=== PATIENT | male | born 1965 | race Caucasian/White ===

== ENCOUNTER 2018-01-25 16:25 | Inpatient (IN) | payer OTHER ==
[~2018-01-25] VITALS: Ht 182.9 cm; Wt 101.3 kg
--- NOTE | 2018-01-25 16:25 | NUR ---
PATIENT BIBA TO BED 10 AT THIS TIME, RT AT BEDSIDE.
[2018-01-25 16:30] VITALS: BP 100/71
--- NOTE | 2018-01-25 16:35 | NUR ---
Note undone in EDM - 01/25/18 at 1831 by VICKI PT. BIB V[place] AMBULANCE [place] [facility] [place] ABNORMAL LABS HGB: 6.8. PT. ARRIVES WITH EYES OPEN GCS: 9. L BKA. UNDERWOOD CATH IN PLACE FROM FACILITY. PT. WARM AND DRY TO TOUCH. RR EVEN AND UNLABORED. TRACH IN PLACE AND ON VENTILATOR, SETTING O2: 3L , AC: 18, TV: 650, PEEP: 5. FACILITY DENIED ANY BLACK TARRY STOOLS OR BLACK EMESIS NOTED. R TOE AMPUTATION NOTED. OPEN WOUNDS TO SACRUM STAGE 4 PER FACILITY. ER MD NOTIFIED. SAFETY PRECAUTIONS IMPLEMENTED. WILL CONTINUE TO MONITOR.
--- NOTE | 2018-01-25 16:35 | NUR ---
PT. [place] [facility] [place] HGB: 6.8. PT. ARRIVES WITH EYES OPEN GCS: 9. L BKA. UNDERWOOD CATH IN PLACE FROM FACILITY. PT. WARM AND DRY TO TOUCH. RR EVEN AND UNLABORED. TRACH IN PLACE AND BEING BAGGED UPON ARRIVAL, SETTING O2: 3L , AC: 18, TV: 650, PEEP: 5. FACILITY DENIED ANY BLACK TARRY STOOLS OR BLACK EMESIS NOTED. R TOE AMPUTATION NOTED. OPEN WOUNDS TO SACRUM STAGE 4 PER FACILITY. L LOWER ARM PITTING 3+ EDEMA NOTED, SCROTAL EDEMA NOTED. ER MD NOTIFIED. SAFETY PRECAUTIONS IMPLEMENTED. WILL CONTINUE TO MONITOR.
[2018-01-25 16:40] VITALS: BP 100/71
--- NOTE | 2018-01-25 16:48 | NUR ---
RCV'D PT ON MECHANICAL VENTILATION. PT IS ON THE SAME SETTINGS WHAT HE IS ON AT HIS FACILITY. PT IS TRACHED WITH PORTEX 8. NO SOB OR DISTRESS NOTED. VENT IS CONNECTED TO RED OUTLET. ALARMS AUDIBLE. WILL CONTINUE TO MONITOR,
[2018-01-25] MEDS ORDERED: PANT40EC GT (17:03)
[2018-01-25] MEDS ORDERED: VALP-22 GT (17:03)
[2018-01-25] MEDS ORDERED: FERR75LI22 GT (17:03)
[2018-01-25] MEDS ORDERED: AMLO5TAB GT (17:03)
[2018-01-25] MEDS ORDERED: CLON0.2T16 GT (17:03)
[2018-01-25] MEDS ORDERED: ROC.25 GT (17:03)
[2018-01-25] MEDS ORDERED: ATOR40TA GT (17:03)
[2018-01-25] MEDS ORDERED: NOVR IM (17:03)
[2018-01-25] MEDS ORDERED: DIAZ5TAB7 GT (17:03)
[2018-01-25] MEDS ORDERED: FLUC200T GT (17:03)
[2018-01-25] MEDS ORDERED: LEVE1000 GT (17:03)
--- NOTE | 2018-01-25 17:40 | NUR ---
PT. RESTING IN BED, RR EVEN AND UNLABORED. VSS. HOB ELEVATED. L ARM ELEVATED. WILL CONTINUE TO MONITOR.
[2018-01-25 17:45] LABS: BASOPHILS % (AUTO) 0.2 % (0.0-2.0); EOSINOPHILS # (AUTO) 0.1 K/uL (0-0.4); EOSINOPHILS % (AUTO) 1.5 % (0.0-4.0); HEMATOCRIT 23.6 % (36-52); HEMOGLOBIN 7.5 g/dL (12.0-18.0); LYMPHOCYTES # (AUTO) 1.1 K/uL (2.0-11.5); LYMPHOCYTES % (AUTO) 12.4 % (20.5-51.1); MEAN CORPUSCULAR HEMOGLOBIN 31 pg (27-31); MEAN CORPUSCULAR HGB CONC 32 g/dL (33-37); MEAN CORPUSCULAR VOLUME 97.7 fL (80-94); MONOCYTES # (AUTO) 0.4 K/uL (0.8-1.0); MONOCYTES % (AUTO) 4.3 % (1.7-9.3); NEUTROPHILS # (AUTO) 7.4 K/uL (1.8-7.7); NEUTROPHILS % (AUTO) 81.6 % (42.2-75.2); PLATELET COUNT (AUTO) 140 K/uL (140-450); RED BLOOD CELL COUNT(AUTO) 2.41 MIL/uL (4.20-6.10); RED CELL DISTRIBUTION WIDTH 19.4 % (11.6-13.7); WHITE BLOOD COUNT (AUTO) 9.1 K/uL (4.8-10.8)
[2018-01-25 17:53] LABS: ANION GAP 7.9 (8-16); CARBON DIOXIDE 28.1 mmol/L (21-32); CREATININE 0.8 mg/dL (0.7-1.3)
--- NOTE | 2018-01-25 17:55 | NUR ---
TRIED TO GET SPUTUM SAMPLE BUT PT IS DRY. NO SOB OR DISTRESS NOTED.
[2018-01-25 17:56] LABS: PROTHROMBIN TIME 10.8 secs (10.8-13.4)
--- NOTE | 2018-01-25 18:33 | NUR ---
PT. RESTING COMFORTABLY IN BED, RR EVEN AND UNLABORED. WILL CONTINUE TO MONITOR. VSS
--- NOTE | 2018-01-25 18:41 | NUR ---
PATIENT RECEIVED IN ER ROOM 10 DESCRIBED. TRACHEOSTOMY, PORTEX 8. ON VENT, AC, VT 650, RATE 18, PEEP 5, 40%, FLOW 40. PATIENT IS AWAKE. TRACH IS PATENT AND SECURED. ULCER NOTED AT STOMA AND IS RED WITH DISCHARGE BUT NO ACTIVE BLEEDING NOTED. AMBU BAG AT BEDSIDE. ALARMS WERE TIGHTENED AND ARE ON AND AUDIBLE. VENT PLUGGED INTO RED OUTLET. VITALS AE 100%, PULSE 91, RATE 18, CLEAR BREATH SOUNDS. NO TREATMENTS ORDERED AT THIS TIME.
[2018-01-25] MEDS ORDERED: ALBUTEROL 0.083% 2.5 MG/3 ML NEBU INH PRN (18:45)
[2018-01-25] MEDS ORDERED: HYDROcodone/APAP 5/325 MG 1 TAB TAB PO PRN (18:45)
[2018-01-25] MEDS ORDERED: ONDANSETRON 4 MG/2 ML VIAL IVP PRN (18:45)
[2018-01-25] MEDS ORDERED: MORPHINE SULFATE 2 MG/ML SYR IVP PRN (18:45)
[2018-01-25] MEDS ORDERED: NACL 0.9% 1,000 ML IV SCH ×2 (18:48→19:29)
[2018-01-25] MEDS ORDERED: POTASSIUM CHLORIDE 20% 40 MEQ/15 ML UDC GT ONE ×2 (18:50→19:30)
--- NOTE | 2018-01-25 19:17 | NUR ---
Pt report given to CONSTANZA PITTS . Transfer of care at this time.
--- NOTE | 2018-01-25 19:45 | NUR ---
CALLED TO TRANSPORT AT 1935. PREPARED PATIENT FOR TRANSPORT AND TRANSPORTED WITH 2 ER NURSES (CLAUDE AND HONG) WITH NO INCIDENT. PATIENT RESTORED TO VENT AND PLUGGED INTO RED OUTLET. PLUGGED INTO CONTINUOUS PULSE OXIMETER INTO RED OUTLET. CIRCUIT AND STOMA PATENT. VITALS AT 100%, PULSE 96, BREATH SOUNDS CLEAR.
--- NOTE | 2018-01-25 19:53 | NUR ---
Pt transferred to ICU via BED with CONSTANZA Warren .
[2018-01-25 20:00] VITALS: BP 85/55
--- NOTE | 2018-01-25 20:00 | NUR ---
REPORT GIVEN AND CARE TRANSFERED TO DANIELLE RN ROOM 123B. TRANSFERED VIA RNEY WITH VSS. RT PRESENT DURING TRANSPORT.
--- NOTE | 2018-01-25 20:00 | NUR ---
ADMITTED THIS 52 YEAR OLD MALE PER GURNEY FROM ER WITH CC OF LOW HEMOGLOBIN, TRANSFERRED TO WOUND BED, ON TRACH TO VENT, VITAL SIGNS TAKEN, BP-85/55, HR-85, SAT-100% ON 40% FI02, PT APHASIC BUT OPEN EYES WITH TRACKING, IVF OF NS 1L WIDE OPEN FROM ER INFUSING WELL VIA RT UA PICC LINE SINGLE LUMEN, DRESSING DRY AND INTACT, HX OF LEFT BKA AND RT TOES AMPUTATION, G-TUBE CLAMPED AT THIS TIME, MAINTAINED ON NPO ORDERED, UNDERWOOD CATHETER TO GRAVITY WITH STRAW COLORED URINE SMALL AMOUNT, PT BEDBOUND, WILL REPOSITIONED Q2H AND OFFLOAD PRESSURE AREAS, SAFETY MEASURES IN PLACE, SIDE RAILS UP AND BED ALARM ON.
[2018-01-25] MEDS: DEXT 5% / NACL 0.45% 1,000 ML IV SCH (21:12)
[2018-01-25] MEDS: ACETAMINOPHEN 325 MG TAB PO PRN (21:13)
[2018-01-25] MEDS: ALBUTEROL 0.083% 2.5 MG/3 ML NEBU INH SCH (21:59)
[2018-01-25] MEDS: IPRATROPIUM 0.02% 0.5 MG/2.5 ML NEBU INH SCH (21:59)
[2018-01-25 22:00] VITALS: BP 97/70
--- NOTE | 2018-01-25 22:00 | NUR ---
PATIENT WEANED DOWN TO 35. WATCHED PATIENT FOR 10 MINUTES AND SATURATIONS DID NOT DROP BELOW 100%. WILL REASSESS.
[2018-01-25] MEDS ORDERED: DEXTROSE 50% 50 ML SYR IVP PRN (22:35)
--- NOTE | 2018-01-25 22:40 | NUR ---
PT WITH OCCASIONAL TREMORS NOTED, PT OPEN EYES TO TOUCH, PAGED DR GOYAL, DR GOYAL MADE AWARE OF TREMORS AND LOW BLOOD PRESSURE, WITH ORDER FOR ALBUMIN X1 AND TO CONTINUE SEIZURE MEDS, BLOOD TRANSFUSION 1ST UNIT PRBC ON-GOING AT THIS TIME, MONITORED CLOSELY.
[2018-01-25] MEDS ORDERED: ALBUMIN HUMAN 25% 100 ML IV SCH (23:00)
--- NOTE | 2018-01-25 23:07 | NUR ---
PATIENT STILL SATING 100%. FIO2 DROPPED FROM 35% TO 28%. AFTER 10 MINUTES, PATIENT'S O2 SATURATIONS STILL HAVENT DROPPED BELOW 100%- PULSE REMAINED UNCHANGED WELL RATE.. WILL CONTINUE TO MONITOR.
--- NOTE | 2018-01-25 23:30 | NUR ---
PT SEEN SHAKING OF UPPER BODY, ARMS AND HEAD WITH EYES CLOSED, OPEN EYES TO TOUCH AND SHAKING STOPPED, VITAL SIGNS STABLE, 1ST UNIT PRBC ON-GOING, MAINTAINED ON NPO, REPOSITIONED AND OFFLOAD PRESSURE AREAS, PT ON WOUND BED, CONTINUE TO MONITOR CLOSELY.
[2018-01-26] VITALS: BP 111/70
[2018-01-26] MEDS: IPRATROPIUM 0.02% 0.5 MG/2.5 ML NEBU INH SCH ×3 (01:09→13:38)
[2018-01-26] MEDS: ALBUTEROL 0.083% 2.5 MG/3 ML NEBU INH SCH ×3 (01:10→13:38)
--- NOTE | 2018-01-26 01:10 | NUR ---
RECEIVED ON A [employer] CARESCAPE R860 VENTILATOR PLUGGED INTO RED OUTLET TOLERATING WELL WITHOUT ADVERSE REACTIONS NOTED TO A PORTEX DCT #8 AIRWAY SECURED WITH A TRACH TIE CUFF PRESSURE CHECKED NOTED AMBU BAG NOTED AT HEAD OF BED VÍCTOR RADICAL-7 CONTINUOS PULSE OXIMETER AT BEDSIDE ON AND FUNCTIONING WELL LOW SATURATION ALARM SET AT 92% NO PULMONARY DISTRESS NOTED BREATH SOUNDS RHONCHI BILATERAL WITH GOOD CHEST RISE DEEP TRACHEAL SUCTION FOR LARGE THICK YELLOW SECRETIONS AIRWAY PATENT
--- NOTE | 2018-01-26 01:35 | NUR ---
1ST UNIT PRBC DONE WITH NO REACTION NOTED, VITAL SIGNS STABLE, 2ND UNIT PRBC STARTED, MONITORED FOR REACTIONS, OCCASIONAL SHAKING NOTED, NO CONTRACTIONS AND RIGIDITY NOTED, PT OPENS EYES TO TOUCH, CONTINUE ON SEIZURE PRECAUTION, MONITORED CLOSELY.
--- NOTE | 2018-01-26 03:20 | NUR ---
2ND UNIT PRBC DONE, VITAL SIGNS STABLE, NO REACTION NOTED, RESUMED IVF OF D5 1/2 NS AT 100ML/H, MONITORED CLOSELY.
--- NOTE | 2018-01-26 03:25 | NUR ---
STABLE NO DISTRESS NOTED GOOD CHEST RISE DEEP TRACHEAL SUCTION FOR MODERATE THICK YELLOW SECRETIONS AIRWAY PATENT
[2018-01-26 04:00] VITALS: BP 107/73
[2018-01-26] MEDS: DIAZEPAM 5 MG TAB GT SCH ×2 (04:05→13:04)
[2018-01-26] MEDS: levETIRAcetam 500 MG TAB GT SCH ×2 (04:05→13:04)
[2018-01-26] MEDS: VALPROIC ACID 250 MG/5 ML UDC GT SCH ×2 (04:05→13:10)
--- NOTE | 2018-01-26 04:10 | NUR ---
10 ML G-TUBE RESIDUAL NOTED, DUE SEIZURE MEDS ADMINISTERED VIA G-TUBE, ORAL CARE DONE USING VAP KIT, TOLERATED WELL, SUCTION SECRETION ORALLY WITH ANDREI, MONITORED CLOSELY.
[2018-01-26] MEDS: DEXT 5% / NACL 0.45% 1,000 ML IV SCH ×2 (04:43→14:43)
--- NOTE | 2018-01-26 05:00 | NUR ---
PT WITH LARGE LOOSE BM GREENISH BROWN STOOL, PERINEAL CARE DONE.
--- NOTE | 2018-01-26 05:24 | NUR ---
RESTING WELL NO NOTED GOOD CHEST RISE DEEP TRACHEAL SUCTION FOR MODERATE THIN YELLOW SECRETIONS AIRWAY PATENT
[2018-01-26] MEDS: MIDODRINE 5 MG TAB GT SCH ×2 (06:24→13:04)
[2018-01-26] MEDS ORDERED: PANTOPRAZOLE 40 MG INJ VIAL IVP SCH (06:30)
[2018-01-26] MEDS: BLOOD GLUCOSE MONITORING 1 DEV DEV FS SCH ×2 (06:33→11:30)
[2018-01-26] MEDS: INSULIN LISPRO SLIDING SCALE 100 UNITS/ML VIAL SUBQ PRN ×2 (06:33→13:06)
--- NOTE | 2018-01-26 06:35 | NUR ---
BLOOD SUGAR CHECKED WITH 180 RESULT, RECHECKED BP-119/76, HR-85, PT SLEEPING, NO SEIZURE EPISODE NOTED AT THIS TIME, DR GOYAL HERE, MADE AWARE OF 200ML URINE OUTPUT THE WHOLE SHIFT AND EDEMA TO LEFT ARM, STATED "THAT'S FINE AND TO ELEVATE LEFT ARM WITH PILLOW", CARRIED OUT, PT MONITORED CLOSELY.
[2018-01-26 07:05] VITALS: BP 128/81
--- NOTE | 2018-01-26 07:15 | NUR ---
RCV'D PT ON MECHANICAL VENTILATION WITH CHARTED SETTINGS. PT IS TRACHED WITH PORTEX 8. TRACH IS IN PLACE AND SECURED. BREATH SOUNDS RHONCHI BILATERALLY. SPO2 100%. VENT IS CONNECTED TO RED OUTLET. ALARMS AUDIBLE. AMBU BAG AT BEDSIDE. HHN TX GIVEN WITH NO ADVERSE REACTION. PT IS ASLEEP COMFORTABLY. NO SOB OR DISTRESS NOTED. CONTINUOUS PULSEOX IS AT BEDSIDE. WILL CONTINUE TO MONITOR.
--- NOTE | 2018-01-26 07:23 | NUR ---
PT AWAKE, NO SIGNS OF DISTRESS, REPORT GIVEN TO CONSTANZA TRAN FOR CONTINUITY OF CARE.
--- NOTE | 2018-01-26 07:30 | NUR ---
RECEIVED REPORT FROM GEOPHYSICAL LABORATORY CHIEF NURSE, PT IS AAOX1 RESTING IN BED, SEMI FOWLERS POSITION PT IS ON A TRACH TO VENT, PICC LINE ON RIGHT UPPER ARM, PATENT, INTACT, FLUSHING WELL, PT HAS MULTIPLE PRESSURE ULCERS ON HIS BUTTOCKS AND SACRAL AREA, PT HAS LEFT BKA, RT TOES AMPUTATED, UNDERWOOD CATHETER IS IN PLACE, CURRENTLY RECEIVING A BREATHING TREATMENT, RT IS AT BEDSIDE, NO S/S OF RESPIRATORY DISTRESS OR DISCOMFORT NOTED, DISCUSSED PLAN OF CARE WITH PT, PT UNABLE TO VERBALIZE UNDERSTANDING, SAFETY/FALL PRECAUTIONS ARE IN PLACE, CALL LIGHT IS WITHIN REACH WILL CONTINUE TO MONITOR.
[2018-01-26 08:00] VITALS: BP 107/69
--- NOTE | 2018-01-26 08:00 | NUR ---
DECREASED PT'S FIO2 TO 24 % WILL CONTINUE TO MONITOR.
--- NOTE | 2018-01-26 08:37 | NUR ---
PATIENT HAS BEEN SCREENED AND CATEGORIZED HIGH NUTRITION RISK. PATIENT WILL BE SEEN WITHIN 1-2 DAYS OF ADMISSION. 01/26/18 01/27/[address]
[2018-01-26 08:56] LABS: BASOPHILS # (AUTO) 0.1 K/uL (0.00-0.22); BASOPHILS % (AUTO) 0.7 % (0.0-2.0); EOSINOPHILS # (AUTO) 0.1 K/uL (0-0.4); EOSINOPHILS % (AUTO) 0.7 % (0.0-4.0); HEMATOCRIT 27.8 % (36-52); HEMOGLOBIN 9.1 g/dL (12.0-18.0); LYMPHOCYTES # (AUTO) 1.4 K/uL (2.0-11.5); LYMPHOCYTES % (AUTO) 18.3 % (20.5-51.1); MEAN CORPUSCULAR HEMOGLOBIN 31 pg (27-31); MEAN CORPUSCULAR HGB CONC 33 g/dL (33-37); MEAN CORPUSCULAR VOLUME 94.9 fL (80-94); MONOCYTES # (AUTO) 0.4 K/uL (0.8-1.0); MONOCYTES % (AUTO) 4.8 % (1.7-9.3); NEUTROPHILS # (AUTO) 5.8 K/uL (1.8-7.7); NEUTROPHILS % (AUTO) 75.5 % (42.2-75.2); PLATELET COUNT (AUTO) 103 K/uL (140-450); RED BLOOD CELL COUNT(AUTO) 2.93 MIL/uL (4.20-6.10); RED CELL DISTRIBUTION WIDTH 17.2 % (11.6-13.7); WHITE BLOOD COUNT (AUTO) 7.7 K/uL (4.8-10.8)
[2018-01-26] MEDS ORDERED: FLUCONAZOLE 100 MG TAB GT SCH (09:00)
[2018-01-26] MEDS ORDERED: CALCITRIOL 0.25 MCG CAPLF PO SCH (09:00)
[2018-01-26] MEDS ORDERED: ATORVASTATIN 20 MG TAB GT SCH (09:00)
--- NOTE | 2018-01-26 09:04 | NUR ---
DUE MEDICATION GIVEN. PT TOLERATED WELL, CALL LIGHT IS WITHIN REACH, WILL CONTINUE TO MONITOR.
--- NOTE | 2018-01-26 09:16 | NUR ---
VENT CHECK. NO SOB OR DISTRESS NOTED. PT IS QUITE. WILL CONTINUE TO MONITOR.
[2018-01-26 09:20] LABS: ALBUMIN 1.7 g/dL (3.4-5.0); ANION GAP 8.9 (8-16); CARBON DIOXIDE 27.3 mmol/L (21-32); CREATININE 0.9 mg/dL (0.7-1.3); POTASSIUM 3.2 mmol/L (3.5-5.1); TOTAL BILIRUBIN 0.4 mg/dL (0.0-1.0)
--- NOTE | 2018-01-26 09:34 | NUR ---
CM NOTE ADMISSION CHART REVIEW DONE. INITIAL REVIEW FAXED TO [facility] [phone] MEDARDO # [phone]
--- NOTE | 2018-01-26 11:05 | NUR ---
VENT CHECK DONE. NO SXN NEEDED. PT IS QUITE AND COMFORTABLE. NO SOB OR DISTRESS NOTED. WILL CONTINUE TO MONITOR.
--- NOTE | 2018-01-26 11:40 | NUR ---
PT RESTING IN BED, PT WAS TURNED FOR COMFORT, NO S/S OF DISTRESS OR DISCOMFORT NOTED, CALL LIGHT WITHIN REACH.
[2018-01-26 12:00] VITALS: BP 135/66
--- NOTE | 2018-01-26 12:18 | NUR ---
Distribution Tech Note: Per Sun from [facility] , patient is on a 7 day bed hold and his brother Derrick Elliott is patient's healthcare decision maker. I informed Sun patient's POLST is incomplete, physician's section is not filled out, not signed by physician. Sun stated she will inform their psychosocial rehabilitation counselor dept of this.
--- NOTE | 2018-01-26 12:29 | NUR ---
Digester Operator Note: I faxed patient's history of present illness report, list of labs, and list of medication to [facility].
--- NOTE | 2018-01-26 13:06 | NUR ---
CM NOTE PER [facility] CM MEDARDO PH# [phone], GOING BACK TO [facility] FOR [facility]SPORT[facility] AUTH# [id number] Addendum: 01/26/18 at 1415 by Torri Mcnulty CM PER IE CM MEDARDO, [place] [facility] [place]# [id number]
--- NOTE | 2018-01-26 13:20 | NUR ---
MEDS WERE GIVEN PER ORDER. PRIMARY NURSE MARC WAS INFORMED
--- NOTE | 2018-01-26 13:35 | NUR ---
Director Of Housing Note: Per Santos from [facility] , patient may go to room 23A after 3pm today at their facility, accepting physician is .
[2018-01-26 13:38] VITALS: BP 135/66
--- NOTE | 2018-01-26 14:14 | NUR ---
CALLED JAIME AND SPOKE WITH CHERELLE AND SET UP RT TRANSPORT FOR PT TO RET[place] [facility] [place] [place] ROOM 23A AND SCHEDULED CHECKING CLERK TIME IS 1530 AND PROVIDED [facility] AUTH#[id number]. [facility] [phone].
--- NOTE | 2018-01-26 14:30 | NUR ---
PT HAD A BOWEL MOVEMENT BROWN/GREEN IN COLOR, MODERATE AMOUNT, PT CLEANED AND TURNED FOR COMFORT. ALL NEEDS ARE MET AT THIS TIME.
--- NOTE | 2018-01-26 14:33 | NUR ---
PATIENT CURRENT TEMP 101.2. WILL MEDICATE WITH ORDERED TYLENOL AND INITIATE COOLING MEASURES.
[2018-01-26] MEDS: ACETAMINOPHEN 325 MG TAB PO PRN (14:38)
--- NOTE | 2018-01-26 15:06 | NUR ---
CALLED [facility] [place] [phone] AND GAVE REPORT TO MARTINE.
--- NOTE | 2018-01-26 15:15 | NUR ---
RECHECKED PT TEMPERATURE, DECREASED TO 99.8.
--- NOTE | 2018-01-26 16:00 | NUR ---
PT PICKED UP BY [facility], UNDERWOOD CATHETER REMOVED. PT LEFT IN STABLE CONDITION. PICC LINE IN RIGHT UPPER ARM LEFT IN PLACE SINCE PT WAS ADMITTED WITH PICC LINE.
--- NOTE | 2018-01-27 09:52 | NUR ---
WOUND CARE CONSULT NOT DONE. PT. DISCHARGED.
== END 2018-01-26 16:00 | DRG 663 ==
LOC: MED 16:25 → MTU 18:50
PROVIDERS: ADMIT Hospitalist; ATTEND Hospitalist
PROC: 5A1935Z Respiratory Ventilation, Less than 24 Consecutive Hours (ICD-10-PCS; 2018-01-25)
PROC: 30233N1 Transfusion of Nonautologous Red Blood Cells into Peripheral Vein, Percutaneous Approach (ICD-10-PCS; principal; 2018-01-26)
DX: D64.9 Anemia, unspecified (principal); G93.41 Metabolic encephalopathy; Z99.11 Dependence on respirator [ventilator] status; J96.10 Chronic respiratory failure, unspecified whether with hypoxia or hypercapnia; R53.2 Functional quadriplegia; Z93.0 Tracheostomy status; I10 Essential (primary) hypertension; R13.10 Dysphagia, unspecified; E11.9 Type 2 diabetes mellitus without complications; Z86.73 Personal history of transient ischemic attack (TIA), and cerebral infarction without residual deficits; Z87.11 Personal history of peptic ulcer disease; Z93.1 Gastrostomy status; Z89.512 Acquired absence of left leg below knee; Z89.421 Acquired absence of other right toe(s)
CPT/HCPCS: 36415; 51702; 80048; 80053; 82948; 83540; 85025; 85610; 85730; 86886; 86900; 86901; 86920; 87081; 94002; 94003; 94640; 99285; C9113; J1815; J7030; J7613; J7644; P9016; P9046

== ENCOUNTER 2018-02-02 09:29 | Inpatient (IN) | payer OTHER ==
[~2018-02-02] VITALS: Ht 175.3 cm; Wt 104.3 kg
[2018-02-02] VITALS (13 sets, daily range): BP systolic 86–115; BP diastolic 57–74
[~2018-02-02 09:29] MED LIST: ATOR40TA GT; CLON0.2T16 GT; DIAZ5TAB7 GT; FERR75LI22 GT; FLUC200T GT; LEVE1000 GT; NOVR IM; PANT40EC GT; ROC.25 GT; VALP-22 GT
--- NOTE | 2018-02-02 09:29 | NUR ---
PT BIBA ALS TO BED 10
--- NOTE | 2018-02-02 09:30 | NUR ---
ADMITTING DX: SOB RECEIVED FROM [facility] PATIENT ON AnergisSCAPE R860 VENTILATOR ID# [id number] WITH SETTINGS NOTED ON FLOWSHEET VENTILATOR PLUGGED INTO RED OUTLET TOLERATING WELL WITHOUT INCIDENT PORTEX DCT #8 AIRWAY CUFF PRESSURE CHECKED AMBU BAG AT HOB BREATH SONDS DIFFUSED RHONCHI BILATERAL WITH GOOD CHEST RISE DEEP TRACHEAL SUCTION FOR SPUTUM SAMPLE OF SMALL THICK YELLOW SECRETIONS AIRWAY PATENT
--- NOTE | 2018-02-02 09:32 | NUR ---
Patient being evaluated by physician at bedside.
[2018-02-02] MEDS ORDERED: NACL 0.9% 1,000 ML IV SCH (09:34)
[2018-02-02] MEDS ORDERED: PIPERACILLIN/TAZOBACTAM 3.375 GM in DEXT 5% MINI-BAG PLUS 50 ML IV ONE (09:35)
[2018-02-02] MEDS ORDERED: ACETAMINOPHEN 650 MG SUPP RC ONE (09:35)
--- NOTE | 2018-02-02 09:37 | NUR ---
PT. HAS RECTAL TEMP OF 102.2. ER MD NOTIFIED. ORDERS RECEIVED. COOLING MEASURES IMPLEMENTED
[2018-02-02] MEDS ORDERED: NACL 0.9% 500 ML IV ONE (09:40)
--- NOTE | 2018-02-02 09:40 | NUR ---
PATIENT BIB ALS FROM [facility] BEING BAGGED/TRACH. VENT. SETTINGS AC 18,TV 650,PEEP 5. FEVER LAST NIGHT NOT MEDICATED AT THE FACILITY PER LABEL PRESS OPERATOR. UNKNOWN TIME BEING SOB PER STAFF AND LABEL PRESS OPERATOR. PT HAS LT BKA, RT TOES AMPUTATION. G TUBE IN PLACE. R UPPER ARM PICC LINE IN PLACE. PT. HAS 102.2 RECTAL TEMP UPON ARRIVAL. WOUNDS TO SACRUM NOTED AND R LEG AND TRACH WOUND NON DRAINING. L ARM EDEMA NOTED 3+ PITTING. LABORED BREATHINGS NOTED. SKIN, HOT AND DRY TO TOUCH. TRACH PRESENT. COOLING MEASURES IMPLEMENTED. SAFETY PRECAUTIONS IMPLEMENTED. ER MD NOTIFIED AND AT BEDSIDE AT THIS TIME. LS: RHONCHI THROUGHOUT. RT AT BEDSIDE. WILL CONTINUE TO MONITOR.
--- NOTE | 2018-02-02 09:42 | NUR ---
RN'S AT BEDSIDE FOR PATIENT ASSESSMENT AND DIAGNOSTIC CLAIM EXAMINER TO ATTEMPT ABG AT A LATER TIME
[2018-02-02] MEDS ORDERED: PIPERACILLIN/TAZOBACTAM 3.375 GM VIAL IV ONE (09:45)
--- NOTE | 2018-02-02 10:01 | NUR ---
LAB AT BEDSIDE AT THIS TIME.
[2018-02-02 10:23] LABS: APPEARANCE,URINE HAZY (CLEAR); BILIRUBIN,URINE NEGATIVE (NEGATIVE); BLOOD, URINE 3+ (NEGATIVE); COLOR,URINE YELLOW (YELLOW); LEUKOCYTE ESTERASE ,URINE 2+ (NEGATIVE); NITRITE, URINE NEGATIVE (NEGATIVE); PH,URINE 5.5 (5.0-9.0); UGLUCOSE NEGATIVE (NEGATIVE)
[2018-02-02 10:25] LABS: BASOPHILS % (AUTO) 0.4 % (0.0-2.0); EOSINOPHILS # (AUTO) 0.1 K/uL (0-0.4); EOSINOPHILS % (AUTO) 2.1 % (0.0-4.0); HEMATOCRIT 21.8 % (36-52); HEMOGLOBIN 7.1 g/dL (12.0-18.0); LYMPHOCYTES # (AUTO) 0.6 K/uL (2.0-11.5); LYMPHOCYTES % (AUTO) 9.3 % (20.5-51.1); MEAN CORPUSCULAR HEMOGLOBIN 31 pg (27-31); MEAN CORPUSCULAR HGB CONC 32 g/dL (33-37); MEAN CORPUSCULAR VOLUME 96.1 fL (80-94); MONOCYTES # (AUTO) 0.4 K/uL (0.8-1.0); MONOCYTES % (AUTO) 6.1 % (1.7-9.3); NEUTROPHILS # (AUTO) 5.6 K/uL (1.8-7.7); NEUTROPHILS % (AUTO) 82.1 % (42.2-75.2); PLATELET COUNT (AUTO) 181 K/uL (140-450); RED BLOOD CELL COUNT(AUTO) 2.27 MIL/uL (4.20-6.10); RED CELL DISTRIBUTION WIDTH 16.8 % (11.6-13.7); WHITE BLOOD COUNT (AUTO) 6.8 K/uL (4.8-10.8)
[2018-02-02 10:33] LABS: ANION GAP 18.7 (8-16); CARBON DIOXIDE 14.2 mmol/L (21-32); CREATININE 1.1 mg/dL (0.7-1.3); POTASSIUM 4.9 mmol/L (3.5-5.1)
--- NOTE | 2018-02-02 10:35 | NUR ---
ABG SAMPLE REPORT REVIEWED BY DR CARMENZA DOWLING NEW ORDER TITRATE FIO2 KEEP SATURATION GREATER THAN 92%
[2018-02-02 10:36] LABS: RBC,URINE 20-50 /HPF (0-5); WBC,URINE 20-60 /HPF (0-5)
[2018-02-02 10:37] LABS: PROTHROMBIN TIME 11.4 secs (10.8-13.4)
[2018-02-02 10:37] LABS: YEAST,URINE Few /HPF (None Seen)
[2018-02-02 10:39] LABS: ALBUMIN 1.2 g/dL (3.4-5.0); TOTAL BILIRUBIN 0.1 mg/dL (0.0-1.0)
--- NOTE | 2018-02-02 10:45 | NUR ---
PT. IN BED. VSS. RR EVEN AND UNLABORED. REPOSITIONED FOR COMFORT. BED IN LOWEST POSITION. WILL CONTINUE TO MONITOR.
[2018-02-02] MEDS ORDERED: SLIDE SUBQ (11:07)
[2018-02-02] MEDS ORDERED: DOCU-299 GT (11:07)
[2018-02-02] MEDS ORDERED: AMLO5TAB GT (11:07)
[2018-02-02] MEDS ORDERED: ASCO500T45 GT (11:07)
[2018-02-02] MEDS ORDERED: ONDANSETRON 4 MG/2 ML VIAL IVP PRN (11:15)
[2018-02-02] MEDS ORDERED: DEXTROSE 50% 50 ML SYR IVP PRN (11:15)
[2018-02-02] MEDS ORDERED: ALBUTEROL 0.083% 2.5 MG/3 ML NEBU IH PRN (11:15)
--- NOTE | 2018-02-02 11:42 | NUR ---
vent check, pt resting with no signs of distress noted airway is patent
--- NOTE | 2018-02-02 12:15 | NUR ---
PT TRANSFERRED TO ICU 5 BAGGED WITH 100% O2 THEN PLACED BACK ON VENT WITH SAME SETTINGS
--- NOTE | 2018-02-02 12:19 | NUR ---
1215 PT TAKEN TO ICU BY RN SHEILA, EMT ANISH, AND RT
--- NOTE | 2018-02-02 12:20 | NUR ---
RECEIVED PT FROM ER VIA GURLACY, REPORT OBTAINED AT BEDSIDE, PT IS LETHARGIC, APHASIC, UNABLE TO FOLLOW COMMANDS AND MAKE NEEDS KNOWN, TRACH TO VENT WITH SETTING FIO2 100, TV 650, RR 18, PEEP 5, NO S/S OF DISTRESS, RHONCHI LUNG SOUNDS EMERSON. O2 SAT 100%. ST ON PIANO TECHNICIAN, SOFT ABDOMEN WITH ACTIVE BOWEL SOUNDS, GT IN PLACE, PATENT, NO RESIDUALS AT THIS TIME. INCONTINENT WITH B&B'S, DIARRHEA NOTED. GENERALIZED EDEMA NOTED, SEVERE WEAKNESS TO ALL EXTREMITIES, LEFT BKA NOTED, RIGHT TOES AMPUTATION NOTED, SKIN IS WARM, FEVER NOTED, COOLING MEASURE IN USE, OPEN WOUND PRESENT (SEE WOUND ASSESSMENT). MEDLINE TO RIGHT UPPER ARM, PATENT, RUNNING NS AT 100ML/HR. HOB ELEVATED TO 30 DEGREES, SEIZURE PRECAUTION AND FALL PRECAUTION IN PLACE, SAFETY MEASURE CHECKED, PLACED PT TO COMFORT POSITION, WILL CONTINUE TO MONITOR.
--- NOTE | 2018-02-02 12:25 | NUR ---
Patient will be admitted to care of DR. HART . Admited to ICU . Will go to room 5 . Belongings list completed. Report to CONSTANZA BIANCHI .
--- NOTE | 2018-02-02 12:25 | NUR ---
VENT CHECK, NO SXN NEEDED AIRWAY PATENT AND RN AT BEDSIDE
[2018-02-02] MEDS: BLOOD GLUCOSE MONITORING 1 DEV DEV FS SCH ×3 (12:40→20:10)
[2018-02-02] MEDS: VALPROIC ACID 250 MG/5 ML UDC GT SCH ×2 (12:40→20:10)
[2018-02-02] MEDS: levETIRAcetam 100 MG/ML ORASYR GT SCH ×2 (12:40→20:11)
[2018-02-02] MEDS: DIAZEPAM 5 MG TAB GT SCH ×2 (12:40→20:11)
[2018-02-02] MEDS: NACL 0.9% 1,000 ML IV SCH ×2 (12:41→23:00)
[2018-02-02] MEDS ORDERED: PIPERACILLIN/TAZOBACTAM 3.375 GM in DEXTROSE 5% 50 ML IV SCH (13:00)
--- NOTE | 2018-02-02 13:00 | NUR ---
UNDERWOOD CATHETER INSERTED ORDERED, WOUND CARE PROVIDED, WOUND CULTURE COLLECTED.
[2018-02-02] MEDS: ACETAMINOPHEN 650 MG/20.3 ML UDC GT PRN (13:06)
--- NOTE | 2018-02-02 13:06 | NUR ---
PT TEMP 101.3F, COOLING MEASURE IN USE, TYLENOL GIVEN.
[2018-02-02] MEDS: INSULIN LISPRO SLIDING SCALE 100 UNITS/ML VIAL SUBQ PRN ×3 (13:07→20:24)
--- NOTE | 2018-02-02 14:55 | NUR ---
DR. HART CAME IN TO SEE PT AT BEDSIDE, WILL FOLLOW UP WITH NEW ORDERS.
--- NOTE | 2018-02-02 14:56 | NUR ---
DR HART IN, UPDATED ON PATIENT'S CONDITION. WILL FOLLOW UP WITH ORDERS.
[2018-02-02] MEDS ORDERED: ALBUTEROL SULFATE/IPRATROPIU 3 ML SOL IH PRN (15:15)
--- NOTE | 2018-02-02 15:19 | NUR ---
vent check, sxn pt no return of secretions, b\s rhonchi trach care done: changed trach gauze with skin break down around stoma inner cannula changed dr. jason gave vent and breathing tx orders. decreased fio2 to 30%
--- NOTE | 2018-02-02 15:36 | NUR ---
GAVE RECOMMENDATIONS TO TASH APODACA FOR GLUCERNA 1.2 AT 75 ML/HR. THIS WILL PROVIDE PATIENT WITH 2160 KCAL, 108 GM OF PROTEIN, MEETING 100% OF ESTIMATED NEEDS FOR A PATIENT ON TRACH TO VENT.
--- NOTE | 2018-02-02 16:00 | NUR ---
PM CARE AND UNDERWOOD CATHETER CARE, PRERI CARE PROVIDED, ORAL CARE GIVEN, NO S/S OF DISTRESS, FLACC 0, POSITION CHANGED FOR OFF LOAD PRESSURE.
--- NOTE | 2018-02-02 16:28 | NUR ---
DR HART PAGED AND CALLED BACK. MADE AWARE OF PATIENT'S HAVING 3 EPISODES OF LOOSE BOWEL MOVEMENTS IN LARGE AMOUNT. WITH ORDERS OF TO INSERT RECTAL TUBE AND STOOL SAMPLE FOR C DIFF TO LAB. ORDERS TRANSCRIBED AND CARRIES OUT.
[2018-02-02] MEDS: SKINTEGRITY HYDROGEL TP PRN (16:37)
[2018-02-02] MEDS: Z-GUARD PASTE TP PRN (16:37)
--- NOTE | 2018-02-02 16:49 | NUR ---
DR. RAMIREZ CAME IN TO SEE PT AT BEDSIDE, WILL FOLLOW UP WITH NEW ORDERS.
[2018-02-02] MEDS: LEVOFLOXACIN 500 MG/D5W PREMIX 100 ML IV SCH (16:54)
--- NOTE | 2018-02-02 17:11 | NUR ---
vent check, sxn pt small amt of thick yellow secretions, changed hernández pt resting
--- NOTE | 2018-02-02 18:20 | NUR ---
ONE UNIT OF RBC STARTED ORDERED, WILL CLOSE MONITOR PT'S CONDITION.
--- NOTE | 2018-02-02 19:09 | NUR ---
REPORT GIVEN TO E M ASSEMBLER NURSE FOR CONTINUE OF CARE, PT IS IN STABLE CONDITION AT THIS TIME.
--- NOTE | 2018-02-02 19:11 | NUR ---
RECEIVED REPORT FROM AM SHIFT FOR CONTINUITY OF CARE. PT NONVERBAL. NONTRACKING. UNABLE TO FOLLOW COMMANDS. AFEBRILE. TRACH TO VENT AC MODE FIO2 30 VT 650 FLOW 65 PEEP 5. LUNG SOUNDS CLEAR BILAT. ST ON MONITOR. S1 + S2 SOUNDS PRESENT. EDEMA BUE NOTED. ABD SOFT NONTENDER. BOWEL SOUNDS ACTIVE X4 QUADRANTS. GT TO FEED. GT PATENT. GLUCERNA 1.2 75ML/HR H20 250 ML Q [address] STOOL LIQUID BROWN. BLADDER NONDISTENDED. F/C IN PLACE. URINE CLEAR, YELLOW. IV SITE YOCASTA MIDLINE NS @ 100 ML. PRESSURE INJURY TO SACRUM AND L LEG. AMPUTATION L LEG AND R DIGITS NOTED. INCONTINENT DERMATITIS TO SCROTAL AREA. BED IN LOWEST POSITION. CALL LIGHT WITHIN REACH. SIDE RAILS UP X 4. HOB 30. SEIZURE PRECAUTIONS IMPLEMENTED. ON CONTACT ISOLATION PRECAUTIONS TO R/O C. DIF AT THIS TIME. WILL CONTINUE TO MONITOR,
--- NOTE | 2018-02-02 19:45 | NUR ---
PT TURNED AND REPOSITIONED AT THIS TIME. ORAL CARE PERFORMED AT THIS TIME.
[2018-02-02] MEDS: PIPER/TAZO 3.375GM/D5W PREMIX 50 ML IV SCH (20:11)
[2018-02-02] MEDS: ALBUTEROL 0.083% 2.5 MG/3 ML NEBU IH SCH (20:26)
[2018-02-02] MEDS: IPRATROPIUM 0.02% 0.5 MG/2.5 ML NEBU IH SCH (20:26)
--- NOTE | 2018-02-02 20:36 | NUR ---
RT AT BEDSIDE AT THIS TIME
--- NOTE | 2018-02-02 21:33 | NUR ---
BLOOD TRANSFUSION COMPLETE AT THIS TIME. 1 UNIT PRBC INFUSED. NO ADVERSE REACTIONS NOTED.
--- NOTE | 2018-02-02 22:20 | NUR ---
RT AT BEDSIDE AT THIS TIME. PT TURNED AND REPOSITIONED TO OFF LOAD PRESSURE AREAS.
--- NOTE | 2018-02-02 23:00 | NUR ---
NS RATE CHANGED 100ML/HR TO 75 ML/HR PER MD ORDER.
[2018-02-03] VITALS (24 sets, daily range): BP systolic 78–123; BP diastolic 52–79
[2018-02-03] MEDS: Z-GUARD PASTE TP SCH ×2 (00:05→13:09)
[2018-02-03] MEDS: LORazepam 2 MG/ML VIAL IVP PRN ×3 (00:14→10:59)
--- NOTE | 2018-02-03 00:17 | NUR ---
ADMINISTERED ATIVAN 1MG/0.5ML PRN AT THIS TIME FOR AGITATION. FEEDING HELD AT THIS TIME D/T RESIDUAL AT 150 ML.
--- NOTE | 2018-02-03 00:42 | NUR ---
PT TURNED AND REPOSITIONED AT THIS TIME. NO SIGNS OF ACUTE DISTRESS NOTED.
[2018-02-03] MEDS: IPRATROPIUM 0.02% 0.5 MG/2.5 ML NEBU IH SCH ×4 (00:51→18:49)
[2018-02-03] MEDS: ALBUTEROL 0.083% 2.5 MG/3 ML NEBU IH SCH ×4 (00:51→18:49)
--- NOTE | 2018-02-03 00:52 | NUR ---
RT AT BEDSIDE AT THIS TIME.
--- NOTE | 2018-02-03 02:25 | NUR ---
PT REPOSTIONED. WOUND CARE PROVIDED. NO SIGNS OF ACUTE DISTRESS AT THIS TIME.
--- NOTE | 2018-02-03 03:04 | NUR ---
PT HAD LARGE BM AT THIS TIME AROUND THE RECTAL TUBE. PT CLEANED AND WASHED. PERICARE PROVIDED. WOUND CARE PROVIDED. NO SIGNS OF ACUTE DISTRESS AT THIS TIME. FEEDING RESUMED AT THIS TIME.
--- NOTE | 2018-02-03 03:14 | NUR ---
RT AT BEDSIDE.
--- NOTE | 2018-02-03 04:10 | NUR ---
PT AGITATED AT THIS TIME EVIDENCED BY INCREASED WORK OF BREATHING. ADMINISTERED ATIVAN 1MG AT THIS TIME. WILL CONTINUE TO MONITOR STATUS.
[2018-02-03] MEDS: levETIRAcetam 100 MG/ML ORASYR GT SCH ×3 (04:17→20:10)
[2018-02-03] MEDS: VALPROIC ACID 250 MG/5 ML UDC GT SCH ×3 (04:17→20:10)
[2018-02-03] MEDS: PIPER/TAZO 3.375GM/D5W PREMIX 50 ML IV SCH ×3 (04:17→20:09)
--- NOTE | 2018-02-03 04:39 | NUR ---
LAB AT BEDSIDE AT THIS TIME.
--- NOTE | 2018-02-03 04:51 | NUR ---
RT AT BEDSIDE TO SEE PATIENT.
--- NOTE | 2018-02-03 05:15 | NUR ---
RESIDUAL 120 ML VIA GTUBE. FEEDINGS HELD AT THIS TIME. WILL CONTINUE TO MONITOR.
[2018-02-03 05:48] LABS: BASOPHILS % (AUTO) 0.3 % (0.0-2.0); EOSINOPHILS # (AUTO) 0.3 K/uL (0-0.4); EOSINOPHILS % (AUTO) 4.3 % (0.0-4.0); HEMATOCRIT 24.4 % (36-52); HEMOGLOBIN 7.8 g/dL (12.0-18.0); LYMPHOCYTES # (AUTO) 0.7 K/uL (2.0-11.5); LYMPHOCYTES % (AUTO) 10.4 % (20.5-51.1); MEAN CORPUSCULAR HEMOGLOBIN 31 pg (27-31); MEAN CORPUSCULAR HGB CONC 32 g/dL (33-37); MEAN CORPUSCULAR VOLUME 95.3 fL (80-94); MONOCYTES # (AUTO) 0.7 K/uL (0.8-1.0); MONOCYTES % (AUTO) 9.6 % (1.7-9.3); NEUTROPHILS # (AUTO) 5.1 K/uL (1.8-7.7); NEUTROPHILS % (AUTO) 75.4 % (42.2-75.2); PLATELET COUNT (AUTO) 180 K/uL (140-450); RED BLOOD CELL COUNT(AUTO) 2.56 MIL/uL (4.20-6.10); RED CELL DISTRIBUTION WIDTH 17.2 % (11.6-13.7); WHITE BLOOD COUNT (AUTO) 6.8 K/uL (4.8-10.8)
[2018-02-03 06:18] LABS: ANION GAP 16.4 (8-16); CARBON DIOXIDE 12.2 mmol/L (21-32); POTASSIUM 4.6 mmol/L (3.5-5.1)
[2018-02-03] MEDS: BLOOD GLUCOSE MONITORING 1 DEV DEV FS SCH ×4 (06:36→20:01)
[2018-02-03] MEDS: INSULIN LISPRO SLIDING SCALE 100 UNITS/ML VIAL SUBQ PRN ×2 (06:37→11:38)
--- NOTE | 2018-02-03 06:38 | NUR ---
ACCUCHECK PERFORMED AT THIS TIME. BLOOD SUGAR 163MG/DL. 2 UNITS OF HUMALOG ADMINISTERED.
--- NOTE | 2018-02-03 06:44 | NUR ---
REC'D PT ON CARESCAPE VENT SETTINGS AC18 VT 650 PEEP 5 FIO2 30% ALARMS ON AND AUDIBLE, AMBU BAG AT [facility], I\L TX GIVEN WITH ALBUTEROL 2.5MG AND ATROVENT 0.5MG WITH NO ADVERSE REACTION POST TX, B\S ARE DIMINISHED BILATERALLY, SXN PT SMALL AMT OF THICK YELLOW SECRETIONS, PT IS TREACH WITH PORTEX 8 DCT WITH SKIN BREAK DOWN BELOW STOMA, PT IS RESTING WITH NO SIGNS OF DISTRESS NOTED AT THIS TIME, CHANGED HME
--- NOTE | 2018-02-03 07:24 | NUR ---
ENDORSED CARE TO AM SHIFT FOR CONTINUITY OF CARE. PT IN STABLE CONDITION. NO SIGNS OF ACUTE DISTRESS.
--- NOTE | 2018-02-03 07:25 | NUR ---
RECEIVED PT REPORT AT BEDSIDE FROM WATCH DIAL MAKER NURSE, PT EYES OPEN, APHASIC, UNABLE TO FOLLOW COMMANDS AND MAKE NEEDS KNOWN, TRACH TO VENT WITH SETTING FIO2 30, TV 650, RR 18, PEEP 5, NO S/S OF DISTRESS, RHONCHI LUNG SOUNDS EMERSON. O2 SAT 100%. ST ON GRADES 1 THROUGH 5 TEACHER, SOFT ABDOMEN WITH ACTIVE BOWEL SOUNDS, GT IN PLACE, PATENT, 220ML RESIDUALS NOTED, HELD FEEDING AT THIS TIME, INCONTINENT WITH B&B'S, F/C IN PLACE WITH CLEAR YELLOW URINE VIA GRAVITY, RECTAL BAG IN PLACE WITH GREENYELLOW LIQUID STOOL VIA GRAVITY. GENERALIZED EDEMA NOTED, SEVERE WEAKNESS TO ALL EXTREMITIES, LEFT BKA NOTED, RIGHT TOES AMPUTATION NOTED, SKIN IS WARM AND DRY TO TOUCH, OPEN WOUND PRESENT (SEE WOUND ASSESSMENT). MEDLINE TO RIGHT UPPER ARM, PATENT, RUNNING NS AT 75 ML/HR. HOB ELEVATED TO 30 DEGREES, SEIZURE PRECAUTION AND FALL PRECAUTION IN PLACE, SAFETY MEASURE CHECKED, PLACED PT TO COMFORT POSITION, WILL CONTINUE TO MONITOR.
[2018-02-03] MEDS: PANTOPRAZOLE 40 MG INJ VIAL IVP SCH (08:41)
--- NOTE | 2018-02-03 08:41 | NUR ---
PATIENT HAS BEEN SCREENED AND CATEGORIZED HIGH NUTRITION RISK. PATIENT WILL BE SEEN WITHIN 1-2 DAYS OF ADMISSION. 02/03/[address]
[2018-02-03] MEDS: CALCITRIOL 0.25 MCG CAPLF PO SCH (08:43)
[2018-02-03] MEDS: ENOXAPARIN 40 MG/0.4 ML SYR SUBQ SCH (08:43)
[2018-02-03] MEDS ORDERED: amLODIPine 5 MG TAB GT SCH (09:00)
--- NOTE | 2018-02-03 09:02 | NUR ---
VENT CHECK, NO SXN NEEDED AIRWAY IS PATENT AND PT IS RESTING WITH NO SIGNS OF DISTRESS NOTED AT THIS TIME
--- NOTE | 2018-02-03 09:55 | NUR ---
DR. HART CAME IN TO SEE PT AT BEDSIDE, WILL FOLLOW UP WITH NEW ORDERS.
--- NOTE | 2018-02-03 10:05 | NUR ---
WOUND CARE EVALUATION NOTE: REASON FOR EVALUATION: LOW BRENNA SCORE AND PRESSURE INJURY WOUNDS SKIN ASSESSMENT DONE WITH THIS 52 Y/O MALE PT ADMITTED [place] [facility] [facility] WITH INITIAL DX FEVER AND SOB. PT. ADMITTED WITH SACRALCOCCYX PRESSURE INJURY. PAST MEDICAL HX INCLUDES HTN, DM, AND CHRONIC TRACH WITH VENT, G-TUBE AND SEIZURE. ALL ABOVE INFORMATION OBTAINED FROM ADMISSION H&P. LABS ARE WBC 6.8, H/H 7.8/24.4, GLUCOSE 162 AND ALBUMIN 1.2. PT SKIN IS WARM AND DRY, LEFT FOREARM +2 EDEMA. LEFT BKA AND RIGHT TMA. RECTAL TUBING IN PLACE MODERATE AMOUNT WATERY STOOL OBSERVED IN BAG AND F/C PATENT WITH SMALL AMOUNT PREM COLOR URINE OUTPUT. PLAN OF CARE DISCUSSED WITH PRIMARY RN. INTEGUMENTARY: -TRACH SITE TJ STOMA SKIN EROSION WITH PARTIAL THICKNESS LOSS DERMIS, 2.5X2X0.1CM, WOUND BED IS RED, MOIST, NO ODOR. - GT SITE TJ STOMA SKIN REDNESS WITH SKIN INTACT. -ABDOMEN DISTENDED WITH HEALED OLD SCAR -INCONTINENT ASSOCIATE DERMATITIS (IAD) REDNESS TO: HEAD OF PENIS, B/L GROINS EXTENDED TO POSTERIOR SCROTUM -PRESSURE INJURY STAGE 3 TO SACROCOCCYX 8X5X0.2 CM, WOUND BED PALE PINK, TJ WOUND SKIN DENUDED, WITH MULTIPLE SKIN EROSIONS, AREAS MOIST, NO ODOR. -IAD TO RIGHT AND LEFT INNER BUTTOCKS EXTENDED TO PERIANAL PARTIAL THICKNESS SKIN EROSIONS WITH LARGEST SIZE ON LEFT BUTTOCK 1.5X4X0.2 CM TO PERIANAL, WOUND BED IS PINK, CLEAN AND MOIST. NO ODOR. -IAD TO LEFT POSTERIOR THIGH WITH MULTIPLE SMALL PARTIAL THICKNESS SKIN EROSIONS AREA MEASURED 4X6 CM, WOUND BED IS PINK, MOIST NO ODOR. -PRESSURE INJURY STAGE 2 TO RIGHT LATERAL THIGH CLOSE TO HIP AREA 1.2X1X0.1CM WOUND BED DRY WITH PALE PINK IN COLOR, TJ WOUND SKIN INTACT -RIGHT LOWER LEG TJ ANKLE AREA PARTIAL THICKNESS SKIN LOSS 0.5X0.5X0.1CM, WOUND BED IS DRY PINK IN COLOR, PERIWOUND SKIN INTACT. RECOMMENDATIONS: -WOUND CULTURE RESULT PENDING -KEEP SKIN DRY AND CLEAN AT ALL TIMES, PLEASE CHECK Q2H AND PRN FOR MEDICAL DEVICES TUBING POSITIONING - CLEANSE GT SITE TJ STOMA SKIN REDNESS WITH WOUND CARE SOLUTION, PAT DRY, APPLY HYDRAGUARD TO GT-SITE TJ-STOMA SKIN AND COVER WITH SPLIT DRESSING , PLEASE CHANGE SPLIT GUAZE DRESSING PRN IS SOILING. -APPLY Z-GUARD TO IAD LEFT POSTERIOR THIGH, HEAD OF PENIS, R/L GROINS EXTENDED TO SCROTUM AND RIGHT AND LEFT INNER BUTTOCKS EXTENDED TO PERIANAL BID AND PRN IF SOILING - CLEANSE TRACH SITE TJ STOMA SKIN EROSION WITH NS AND APPLY HYDRAGEL TO WOUND BED AND COVER WITH DRY DRESSING QD AND PRN IF SOILING - CLEANSE SACRALCOCCYX WITH NS AND APPLY HYDRAGEL TO WOUND BED AND Z-GUARD TO PERIWOUND COVER WITH DRY DRESSING QD AND PRN IF SOILING -APPLY FORM DRESSING TO RIGHT LATERAL THIGH AND RIGHT LOWER LEG TJ ANKLE AREA CHANGE Q5 DAYS AND PRN IF SOILING PREVENTION -OFFLOAD BILATERALLOWER EXTREMITIES BY PLACING PILLOWS UNDER CALVES UNLESS OTHERWISE CONTRAINDICATED -PRESSURE REDISTRIBUTION SURFACE THERAPY -TURN AND REPOSITION Q2H, OFFLOAD SACRALCOCCYX AND BUTTOCKS BY TURNING RIGHT AND LEFT -CONTINUE TO FOLLOW RD RECOMMENDATIONS ALL ABOVE RECOMMENDATIONS DISCUSSED WITH PRIMARY RN. WILL FOLLOW UP PT Q7-10 DAYS. PLEASE CONTACT WOUND CARE NURSE FOR ANY QUESTION AND CHANGE OF WOUND CONDITION. Addendum: 02/03/18 at 1551 by Elaine Mathur RN (Grace) PRIMARY RN NOTIFY AND REQUEST PHOTO RETAKEN FOR ALL SKIN ALTERATIONS. FOAM DRESSING APPLY TO RIGHT TMA AND LEFT BKA BLANCHABLE REDNESS PREVENTION.
--- NOTE | 2018-02-03 10:50 | NUR ---
ONE UNIT OF RBC STARTED ORDERED, NO S/S OF DISTRESS, VSS, FLACC 0. WILL CONTINUE TO MONITOR.
--- NOTE | 2018-02-03 10:55 | NUR ---
PT HAS 15 SEC SEIZURE ACTIVITY WITH SHAKING BODY AND EYES ROLLING, ATIVAN GIVEN, WILL CONTINUE TO MONITOR.
--- NOTE | 2018-02-03 11:18 | NUR ---
VENT CHECK, SXN PT SMALL AMT OF THICK YELLOW SECRETIONS, PT IS RESTING
[2018-02-03] MEDS ORDERED: PROBIOTIC SCREEN 1 EA MISC MC PRN (11:40)
--- NOTE | 2018-02-03 12:00 | NUR ---
NO S/S OF DISTRESS, VSS, FLACC 0. STILL ON BLOOD TRANSFUSION, ORAL CARE PROVIDED, POSITION CHANGED FOR OFF LOAD PRESSURE.
--- NOTE | 2018-02-03 12:05 | NUR ---
50ML RESIDUALS NOTED, STARTED TUBE FEEDING AT 10ML/HR
--- NOTE | 2018-02-03 12:45 | NUR ---
BLOOD TRANSFUSION COMPLETED, PT TOLERATED WELL, NO ADVERSE EFFECTS NOTED AT THIS TIME.
--- NOTE | 2018-02-03 12:47 | NUR ---
VENT CHECK, I\L TX GIVEN WITH ALBUTEROL 2.5MG AND ATROVENT 0.5MG WITH NO ADVERSE REACTION POST TX SNX PT SMALL AMT OF YELLOW SECRETIONS.
[2018-02-03] MEDS ORDERED: FOAM DRESSING TP SCH (13:00)
[2018-02-03] MEDS: LACTOBACILLUS RHAMNOSUS GG 1 EACH CAP PO SCH (13:00)
[2018-02-03] MEDS: HYDRAGUARD CREAM TP SCH (13:09)
[2018-02-03] MEDS: SKINTEGRITY HYDROGEL TP SCH (13:09)
[2018-02-03] MEDS: NACL 0.9% 1,000 ML IV SCH (13:09)
[2018-02-03] MEDS: METOCLOPRAMIDE 10 MG/2 ML INJ VIAL IVP SCH ×2 (13:22→20:09)
--- NOTE | 2018-02-03 14:06 | NUR ---
02/03/18 RD INITIAL ASSESSMENT COMPLETED PLEASE REFER TO NUTRITION ASSESSMENT UNDER CARE ACTIVITY FOR ESTIMATED NUTRITIONAL NEEDS. 1.WHEN RESIDUALS HAVE DECREASED <150 ML, RESTART TUBE FEEDING AT A LOW INFUSION RATE OF 10 ML/HR AND GRADUALLY ADVANCE TO GOAL RATE OF 75 ML/HR -THIS WILL PROVIDE 1800 ML OF VOLUME, 2160 KCAL, 108 GM OF PROTEIN, WHICH MEETS 108% OF ESTIMATED KCAL AND 100% OF ESTIMATED PROTEIN NEEDS 2. CONTINUE FLUSH 250 ML Q8H 3. RECOMMEND IRON SUPPLEMENTATION 4. RD TO FOLLOW-UP 2-3 DAYS, HIGH RISK SHAY ESCOBEDO, YESI
--- NOTE | 2018-02-03 14:10 | NUR ---
CM NOTE ADMISSION REVIEW DONE. INITIAL REVIEW FAXED TO [facility] [phone] MEDARD[facility] # [phone].
--- NOTE | 2018-02-03 15:03 | NUR ---
vent check, no sxn needed airway is patent and pt is getting wound care done rn milton at bedside
--- NOTE | 2018-02-03 16:00 | NUR ---
F/C AND PM CARE PROVIDED, ORAL CARE PROVIDED, POSITION CHANGED FOR OFF LOAD PRESSURE. PT STILL LETHARGIC, NO S/S OF DISTRESS, VSS, FLACC 0.
--- NOTE | 2018-02-03 16:05 | NUR ---
ADMISSION REVIEW FAXED TO [facility].
--- NOTE | 2018-02-03 16:10 | NUR ---
PT'S FAMILY WAS HERE TO SEE PT, (BROTHER, SISTER, AND BROTHER IN LAW). QUESTIONS ANSWERED.
--- NOTE | 2018-02-03 16:33 | NUR ---
VENT CHECK, SXN PT SMALL AMT OF YELLOW SECRETIONS TRACH CARE DONE
[2018-02-03] MEDS: LEVOFLOXACIN 500 MG/D5W PREMIX 100 ML IV SCH (16:57)
--- NOTE | 2018-02-03 16:59 | NUR ---
RECHECKED RESIDUALS WITH 50ML, INCREASED FEEDING RATE TO 20ML/HR AT THIS TIME.
[2018-02-03 17:44] LABS: BASOPHILS % (AUTO) 0.7 % (0.0-2.0); EOSINOPHILS # (AUTO) 0.2 K/uL (0-0.4); EOSINOPHILS % (AUTO) 3.9 % (0.0-4.0); HEMATOCRIT 23.7 % (36-52); HEMOGLOBIN 7.7 g/dL (12.0-18.0); LYMPHOCYTES # (AUTO) 0.7 K/uL (2.0-11.5); LYMPHOCYTES % (AUTO) 12.3 % (20.5-51.1); MEAN CORPUSCULAR HEMOGLOBIN 30 pg (27-31); MEAN CORPUSCULAR HGB CONC 33 g/dL (33-37); MEAN CORPUSCULAR VOLUME 90.6 fL (80-94); MONOCYTES # (AUTO) 0.5 K/uL (0.8-1.0); MONOCYTES % (AUTO) 9.3 % (1.7-9.3); NEUTROPHILS # (AUTO) 4.3 K/uL (1.8-7.7); NEUTROPHILS % (AUTO) 73.8 % (42.2-75.2); PLATELET COUNT (AUTO) 166 K/uL (140-450); RED BLOOD CELL COUNT(AUTO) 2.61 MIL/uL (4.20-6.10); RED CELL DISTRIBUTION WIDTH 20.8 % (11.6-13.7); WHITE BLOOD COUNT (AUTO) 5.9 K/uL (4.8-10.8)
--- NOTE | 2018-02-03 18:00 | NUR ---
DR. LACEY CAME IN TO SEE PT AT BEDSIDE, WILL FOLLOW UP WITH NEW ORDERS.
[2018-02-03 18:24] LABS: ANION GAP 18.3 (8-16); CARBON DIOXIDE 13.4 mmol/L (21-32); CREATININE 0.9 mg/dL (0.7-1.3); POTASSIUM 4.7 mmol/L (3.5-5.1)
--- NOTE | 2018-02-03 19:16 | NUR ---
REPORT GIVEN TO AGR[employer] COMMISSION AGENT NURSE FOR CONTINUE OF CARE, PT IS IN STABLE CONDITION AT THIS TIME.
--- NOTE | 2018-02-03 19:30 | NUR ---
RECEIVED REPORT FROM MORNING RN, TASH, FOR CONTINUITY OF CARE. VS STABLE AT THIS TIME. AFEBRILE. PERRL. PT UNABLE TO FOLLOW COMMANDS. RESPONDS TO LIGHT PAIN. RESPIRATIONS EVEN AND UNLABORED. TRACH TO VENT. CURRENT VENT SETTINGS: AC18, FIO2 30%, TV 650, AND PEEP 5. SECRETIONS ARE CLEAR. PULSES ARE PALPABLE IN ALL EXTREMITIES. SINUS RHYTHM TO SINUS TACHYCARDIA ON MONITOR. S1+S2 HEARD. ABDOMEN ROUND, SOFT AND NONDISTENDED. GTUBE IN PLACE. RECEIVED PT WITH FEEDING RUNNING AT 20ML/HR. RESIDUAL CHECKED AND WAS 30ML. TUBE FEEDING RESUMED AT CURRENT RATE. UNDERWOOD CATHETER IN PLACE, DRAINING CLEAR AND YELLOW URINE. RECTAL TUBE IN PLACE. DARK GREEN TO BROWN COLORED STOOL IN COLLECTION BAG. PT HAS EDEMA ON BUE, PITTING +1. PT HAS MIDLINE ON RIGHT UPPER ARM. ASYMPTOMATIC, INTACT, AND PATENT. HOB AT 30 DEGREES. BED AT LOW POSSIBLE POSITION. ALL SAFETY PRECAUTIONS ARE IN PLACE.
[2018-02-03] MEDS: FERROUS SULFATE 300 MG/5 ML UDC GT SCH (20:10)
--- NOTE | 2018-02-03 22:10 | NUR ---
PT CURRENT FLACC SCORE 4. NOTED TO HAVE FACIAL GRIMACING AND ELEVATED HR. MEDICATION ADMINISTERED PER ORDER. WILL CONTINUE TO MONITOR PT
[2018-02-03] MEDS: MORPHINE SULFATE 4 MG/ML SYR IVP PRN (22:12)
--- NOTE | 2018-02-03 22:30 | NUR ---
TUBE FEEDING RESIDUAL NOTED AT 20ML. INCREASED FEEDING RATE TO 30ML/HR. WILL CONTINUE TO MONITOR RESIDUAL AND INCREASE APPROPRIATE.
[2018-02-04] VITALS (22 sets, daily range): BP systolic 88–126; BP diastolic 55–80
--- NOTE | 2018-02-04 00:28 | NUR ---
RECTAL TUBE CHECKED AND STILL DRAINING WELL. UNDERWOOD CATHETER STILL DRAINING CLEAR AND YELLOW URINE. GTUBE RESIDUAL CHECKED AND NO RESIDUAL NOTED. TUBE FEEDING INCREASED TO 40ML/HR. WILL CONTINUE TO MONITOR RESIDUAL.
[2018-02-04] MEDS: IPRATROPIUM 0.02% 0.5 MG/2.5 ML NEBU IH SCH ×4 (01:02→19:30)
[2018-02-04] MEDS: ALBUTEROL 0.083% 2.5 MG/3 ML NEBU IH SCH ×4 (01:02→19:30)
[2018-02-04] MEDS: HYDRAGUARD CREAM TP SCH ×2 (01:11→13:24)
[2018-02-04] MEDS: Z-GUARD PASTE TP SCH ×2 (01:11→13:25)
--- NOTE | 2018-02-04 02:15 | NUR ---
VS STABLE AT THIS TIME. RESPIRATIONS EVEN AND UNLABORED. SINUS TACHYCARDIA ON MONITOR. GTUBE TO FEEDING. NO RESIDUAL NOTED AT THIS TIME. KEPT HOB AT 30 DEGREES.
--- NOTE | 2018-02-04 04:00 | NUR ---
PT TURNED AND REPOSITIONED. TOLERATED BEING TURNED FAIRLY. GTUBE CHECKED FOR RESIDUAL. NO RESIDUAL ASPIRATED. INCREASED TUBE FEEDING TO 40ML/HR. MORNING CARE PROVIDED. UNDERWOOD CATHETER CARE AND ORAL CARE PROVIDED WELL.
[2018-02-04] MEDS: PIPER/TAZO 3.375GM/D5W PREMIX 50 ML IV SCH ×3 (04:18→21:17)
[2018-02-04] MEDS: METOCLOPRAMIDE 10 MG/2 ML INJ VIAL IVP SCH ×3 (04:18→21:18)
[2018-02-04] MEDS: VALPROIC ACID 250 MG/5 ML UDC GT SCH ×3 (04:19→21:18)
[2018-02-04] MEDS: levETIRAcetam 100 MG/ML ORASYR GT SCH ×3 (04:19→21:18)
[2018-02-04] MEDS: BLOOD GLUCOSE MONITORING 1 DEV DEV FS SCH ×4 (06:34→21:18)
[2018-02-04] MEDS: INSULIN LISPRO SLIDING SCALE 100 UNITS/ML VIAL SUBQ PRN ×3 (06:35→21:19)
--- NOTE | 2018-02-04 07:09 | NUR ---
RECEIVED BEDSIDE REPORT FROM [employer] PH[employer]ICIANS ASSISTANT RN, FOR CONTINUITY OF CARE. PATIENT IS NONVERBAL, UNABLE TO MAKE NEEDS KNOWN OR FOLLOW SIMPLE COMMANDS. PATIENT'S SKIN IS NOT INTACT, PATIENT HAS INCONTINENT DERMATITIS TO LEFT LEG, BUTTOCKS, PERINEAL AREA. HE HAS WOUND TO R. LEG, R. HIP, SACROCOCCYX. PATIENT HAS R. TOES AMPUTATION AND LEFT BKA. PATIENT HAS MIDLINE IV SITE TO R. UPPER ARM WITH NS RUNNING AT 10ML/HR. PATIENT HAS TRACH TO VENT, SETTINGS ARE AC, RATE 18, FIO2 30, TV 650, PEEP 5. BREATHING IS UNLABORED AND EVEN. ST ON AVAYA ENGINEER, FLACC 0. PATIENT HAS GTUBE IN PLACE TO TUBE FEEDING, GLUCERNA AT 40ML/HR WITH 250 H2O FLUSH Q8H, 50ML RESIDUAL NOTED. PATIENT HAS UNDERWOOD CATHETER IN PLACE TO CLEAR YELLOW URINE, RECTAL TUBE IN PLACE TO BROWN SOFT STOOL. SEIZURE PRECAUTIONS ASSESSED AND ENFORCED. SAFETY PRECAUTIONS IN PLACE. CALL LIGHT WITHIN REACH. NO SIGNS OF DISTRESS AT THIS TIME. WILL CONTINUE TO MONITOR.
[2018-02-04 07:52] LABS: BASOPHILS % (AUTO) 0.6 % (0.0-2.0); EOSINOPHILS # (AUTO) 0.4 K/uL (0-0.4); EOSINOPHILS % (AUTO) 4.8 % (0.0-4.0); HEMATOCRIT 25.8 % (36-52); HEMOGLOBIN 8.4 g/dL (12.0-18.0); LYMPHOCYTES # (AUTO) 0.9 K/uL (2.0-11.5); LYMPHOCYTES % (AUTO) 12.2 % (20.5-51.1); MEAN CORPUSCULAR HEMOGLOBIN 29 pg (27-31); MEAN CORPUSCULAR HGB CONC 33 g/dL (33-37); MEAN CORPUSCULAR VOLUME 90.2 fL (80-94); MONOCYTES # (AUTO) 0.5 K/uL (0.8-1.0); MONOCYTES % (AUTO) 7.1 % (1.7-9.3); NEUTROPHILS # (AUTO) 5.6 K/uL (1.8-7.7); NEUTROPHILS % (AUTO) 75.3 % (42.2-75.2); PLATELET COUNT (AUTO) 226 K/uL (140-450); RED BLOOD CELL COUNT(AUTO) 2.87 MIL/uL (4.20-6.10); RED CELL DISTRIBUTION WIDTH 21.4 % (11.6-13.7); WHITE BLOOD COUNT (AUTO) 7.4 K/uL (4.8-10.8)
[2018-02-04] MEDS: PANTOPRAZOLE 40 MG INJ VIAL IVP SCH (08:06)
[2018-02-04] MEDS: FERROUS SULFATE 300 MG/5 ML UDC GT SCH ×2 (08:06→21:18)
[2018-02-04] MEDS: LACTOBACILLUS RHAMNOSUS GG 1 EACH CAP PO SCH ×2 (08:06→11:44)
[2018-02-04] MEDS: CALCITRIOL 0.25 MCG CAPLF PO SCH (08:06)
[2018-02-04] MEDS: ENOXAPARIN 40 MG/0.4 ML SYR SUBQ SCH (08:07)
[2018-02-04 08:17] LABS: ANION GAP 18.1 (8-16); CARBON DIOXIDE 14.5 mmol/L (21-32); CREATININE 0.9 mg/dL (0.7-1.3); POTASSIUM 4.6 mmol/L (3.5-5.1)
--- NOTE | 2018-02-04 08:32 | NUR ---
ADMINISTERED SCHEDULED MEDS ORDERED, PATIENT TOLERATED WELL. PROVIDED ORAL CARE AND TURNED AND REPOSITIONED PATIENT, TOLERATED WELL. NO SIGNS OF DISTRESS NOTED. WILL CONTINUE TO MONITOR PATIENT.
--- NOTE | 2018-02-04 09:17 | NUR ---
PATIENT RESTING COMFORTABLY. PATIENT AT SETTINGS REPORTED AC, 18, 650, +5, 30%. VENT ALARMS ARE ON AND AUDIBLE. VENT PLUGGED INTO RED OUTLET. AMBU BAG AT BEDSIDE ON VENT. SUCTIONED SMALL AMOUNT OF YELLOW THIN SECRETIONS. VITALS: RATE 31, O2 SAT 100%, PULSE 177, DIMINISHED BREATH SOUNDS. NO SOB OR DISTRESS NOTED AT THIS TIME.
--- NOTE | 2018-02-04 09:20 | NUR ---
RT AT BEDSIDE, NO SIGNS OF DISTRESS NOTED. WILL CONTINUE TO MONITOR
--- NOTE | 2018-02-04 09:50 | NUR ---
DR. HART IN TO SEE AND EXAMINE PATIENT, UPDATED ON PATIENT'S CONDITION. WILL FOLLOW ON ANY ORDERS.
[2018-02-04] MEDS ORDERED: ALBU3SOL83 IH (10:06)
[2018-02-04] MEDS ORDERED: ZOS3.375I IV (10:06)
[2018-02-04] MEDS ORDERED: ACET650S53 GT (10:06)
[2018-02-04] MEDS ORDERED: LACT10CA PO (10:06)
[2018-02-04] MEDS ORDERED: HYDGEL TP (10:06)
[2018-02-04] MEDS: NACL 0.9% 1,000 ML IV SCH (10:18)
[2018-02-04] MEDS: ACETAMINOPHEN 650 MG/20.3 ML UDC GT PRN (11:44)
[2018-02-04] MEDS: DIPHENOXYLATE /ATROPINE 2.5 MG TAB GT PRN (11:44)
--- NOTE | 2018-02-04 11:50 | NUR ---
ADMINISTERED TYLENOL PRN FOR TEMP OF 101.2, PATIENT TOLERATED WELL. NO SIGNS OF DISTRESS NOTED. WILL CONTINUE TO MONITOR
--- NOTE | 2018-02-04 11:54 | NUR ---
Line Cleaner Note: I faxed patient's medical information to [facility]. Per Cecil from [facility] , they need all final culture results, CONSTANZA Celaya made aware.
[2018-02-04 12:30] LABS: FOLIC ACID 16.1 ng/mL (>3.0)
[2018-02-04] MEDS: SKINTEGRITY HYDROGEL TP SCH (13:25)
[2018-02-04] MEDS: MORPHINE SULFATE 4 MG/ML SYR IVP PRN (14:02)
--- NOTE | 2018-02-04 14:04 | NUR ---
PATIENT IS TACHYCARDIC AND TACHYPNEIC, FACIAL GRIMACING. ADMINISTERED MORPHINE 2MG PRN, PATIENT TOLERATED WELL. WILL REASSESS.
--- NOTE | 2018-02-04 14:24 | NUR ---
Concurrent Review Faxed to [facility].
[2018-02-04] MEDS ORDERED: CHLORHEXADINE GLUC 2% CLOTH TP SCH (14:25)
[2018-02-04] MEDS: CHLORHEXADINE GLUC 2% CLOTH TP SCH (15:00)
[2018-02-04] MEDS: MUPIROCIN CA NASAL 2% 1GM TUBE NS SCH (15:00)
--- NOTE | 2018-02-04 15:00 | NUR ---
DR. HART CALLED AND NOTIFIED OF PT'S EPISODES OF ST HIGHEST HR 127/MIN. HIGHEST TEMP 100.3.
--- NOTE | 2018-02-04 16:35 | NUR ---
SPOKE TO [facility], POULTRY HATCHERY MANAGER, THEY WOULD LIKE TO KNOW THE MICROBIOLOGY FINAL RESULTS BEFORE ACCEPTING THE PT. IF PT. DOES NOT REQUIRE TO BE ON ISOLATION, THEY CAN TAKE THE PT. ANYTIME.
[2018-02-04] MEDS: SKINTEGRITY HYDROGEL TP PRN (16:44)
[2018-02-04] MEDS: LEVOFLOXACIN 500 MG/D5W PREMIX 100 ML IV SCH (16:44)
--- NOTE | 2018-02-04 17:15 | NUR ---
DR. HART NOTIFIED OF PT'S SPUTUM CULTURE SHOWS PSEUDOMONAS CNSO AND URINE CULTURE SHOWS P. AERU. VISION REHABILITATION THERAPIST,MDRO AND ENTEROBACTER CLOACAE VISION REHABILITATION THERAPIST. DISCHARGE ORDER CANCELLED. STATES WILL CALL DR. MARTINEZ FOR CONSULT.
--- NOTE | 2018-02-04 17:25 | NUR ---
DR. RAMIREZ CALLED. UPDATED ON PT'S CONDITION. AWARE OF MICRO. RESULTS.
--- NOTE | 2018-02-04 17:30 | NUR ---
CHICO APODACA FROM [facility] [place] NOTIFIED THAT PT'S DISCHARGE IS CANCELLED.
--- NOTE | 2018-02-04 18:09 | NUR ---
PROVIDED UNDERWOOD CARE, PATIENT TOLERATED WELL.
--- NOTE | 2018-02-04 19:15 | NUR ---
ENDORSED CONTINUITY OF CARE TO SHOULDER BONER RNARELIS. NO SIGNS OF DISTRESS AT THIS TIME
--- NOTE | 2018-02-04 19:30 | NUR ---
RECEIVED REPORT FROM RACHEL FRASER RN, FOR CONTINUITY OF CARE. VS STABLE AT THIS TIME. AFEBRILE AT THIS TIME. TEMPERATURE 98.1. PERRL. PT UNABLE TO FOLLOW COMMANDS. RESPONDS TO LIGHT PAIN. RESPIRATIONS EVEN AND UNLABORED. TRACH TO VENT. CURRENT VENT SETTINGS: AC18, FIO2 30%, TV 650, AND PEEP 5. INTERMITTENT COUGH PRESENT. PULSES ARE PALPABLE IN ALL EXTREMITIES. SINUS RHYTHM ON MONITOR. S1+S2 HEARD. ABDOMEN ROUND, SOFT AND NONDISTENDED. GTUBE IN PLACE. RECEIVED PT WITH FEEDING TURNED OFF. PER REPORT RESIDUAL WAS ABOVE 200 AT ABOUT 1700. RESIDUAL CHECKED AND ONLY ASPIRATED 10ML. TUBE FEEDING RESUMED AT 50ML/HR. UNDERWOOD CATHETER IN PLACE, DRAINING CLEAR AND YELLOW URINE. RECTAL TUBE IN PLACE. DARK GREEN TO BROWN COLORED STOOL IN COLLECTION BAG. PT HAS MIDLINE ON RIGHT UPPER ARM. ASYMPTOMATIC, INTACT, AND PATENT. HOB AT 30 DEGREES. BED AT LOW POSSIBLE POSITION. ALL SAFETY PRECAUTIONS ARE IN PLACE.
--- NOTE | 2018-02-04 19:30 | NUR ---
RECEIVED ON A [email or web address] R860 VENTILATOR PLUGGED INTO RED OUTLET TOLERATING WELL WITHOUT INCIDENT TO A PORTEX DCT #8 AIRWAY SECURED WITH A AMOS TRACH TIE CUFF PRESSURE CHECKED NOTED AMBU BAG NOTED AT HOB LOC NOT ALERT BREATH SOUNDS RHONCHI BILATERAL WITH GOOD CHEST RISE DEEP TRACHEAL SUCTION FOR MODERATE THIN YELLOW SECRETIONS AIRWAY PATENT
--- NOTE | 2018-02-04 20:30 | NUR ---
seen and examined by dr solis; infection control md; updated on pts present condition.questions answered.made aware of the final results of urine/sputum and wound culture; new order received.carried out
[2018-02-04] MEDS ORDERED: VANCOMYCIN PER PHARMACY MC PRN (20:35)
[2018-02-04] MEDS ORDERED: VANCOMYCIN 2,000 MG in NACL 0.9% 500 ML IV SCH (21:10)
[2018-02-04] MEDS ORDERED: VANCOMYCIN 1,000 MG VIAL ONE (21:35)
--- NOTE | 2018-02-04 21:37 | NUR ---
RESTING WELL NO DISTRESS NOTED GOOD CHEST RISE DEEP TRACHEAL SUCTION FOR MODERATE THIN YELLOW SECRETIONS AIRWAY PATENT
--- NOTE | 2018-02-04 23:21 | NUR ---
GTUBE FLUSHED AND ASPIRATED. RESIDUAL IS 10ML AT THIS TIME. WILL CONTINUE TO MONITOR AND INCREASE TUBE FEEDING APPROPRIATE UNTIL GOAL IS REACHED.
--- NOTE | 2018-02-04 23:38 | NUR ---
NO SOB NOTED GOOD CHEST RISE
[2018-02-05] VITALS (24 sets, daily range): BP systolic 89–144; BP diastolic 63–88
[2018-02-05] MEDS: HYDRAGUARD CREAM TP SCH ×2 (01:30→12:40)
[2018-02-05] MEDS: Z-GUARD PASTE TP SCH ×2 (01:30→12:40)
[2018-02-05] MEDS: ALBUTEROL 0.083% 2.5 MG/3 ML NEBU IH SCH ×4 (01:45→18:51)
[2018-02-05] MEDS: IPRATROPIUM 0.02% 0.5 MG/2.5 ML NEBU IH SCH ×4 (01:45→18:51)
--- NOTE | 2018-02-05 02:05 | NUR ---
PT TRANSFERRED TO ISOLATION ROOM. MORNING CARE PROVIDED. UNDERWOOD CATHETER CARE PROVIDED WELL. CURRENTLY NO RESIDUAL FROM TUBE FEEDING. RESPIRATIONS EVEN AND UNLABORED. SINUS RHYTHM ON MONITOR. AFEBRILE AT THIS TIME. UNDERWOOD CATHETER DRAINING CLEAR AND YELLOW URINE.
--- NOTE | 2018-02-05 03:08 | NUR ---
NO EVIDENCE OF PULMONARY DISTRESS NOTED GOOD CHEST RISE AIRWAY PATENT
[2018-02-05] MEDS: VALPROIC ACID 250 MG/5 ML UDC GT SCH ×3 (04:39→20:29)
[2018-02-05] MEDS: METOCLOPRAMIDE 10 MG/2 ML INJ VIAL IVP SCH ×3 (04:40→20:29)
[2018-02-05] MEDS: levETIRAcetam 100 MG/ML ORASYR GT SCH ×3 (04:40→20:28)
[2018-02-05] MEDS: PIPER/TAZO 3.375GM/D5W PREMIX 50 ML IV SCH ×3 (04:40→20:28)
--- NOTE | 2018-02-05 04:50 | NUR ---
CHECKED GTUBE RESIDUAL AND WAS NOT ABLE TO ASPIRATE ANYTHING. INCREASED TUBE FEEDING RATE TO 60ML/HR. PT TURNED AND REPOSITIONED. WILL CONTINUE TO CHECK AND INCREASE RATE APPROPRIATE
--- NOTE | 2018-02-05 05:27 | NUR ---
RESTING COMFORTABLY GOOD CHEST RISE AIRWAY PATENT
[2018-02-05 05:34] LABS: BASOPHILS % (AUTO) 0.3 % (0.0-2.0); EOSINOPHILS # (AUTO) 0.4 K/uL (0-0.4); EOSINOPHILS % (AUTO) 4.9 % (0.0-4.0); HEMATOCRIT 23.7 % (36-52); HEMOGLOBIN 7.6 g/dL (12.0-18.0); LYMPHOCYTES % (AUTO) 11.2 % (20.5-51.1); MEAN CORPUSCULAR HEMOGLOBIN 29 pg (27-31); MEAN CORPUSCULAR HGB CONC 32 g/dL (33-37); MEAN CORPUSCULAR VOLUME 90.8 fL (80-94); MONOCYTES # (AUTO) 0.8 K/uL (0.8-1.0); MONOCYTES % (AUTO) 9.2 % (1.7-9.3); NEUTROPHILS # (AUTO) 6.5 K/uL (1.8-7.7); NEUTROPHILS % (AUTO) 74.4 % (42.2-75.2); PLATELET COUNT (AUTO) 210 K/uL (140-450); RED BLOOD CELL COUNT(AUTO) 2.61 MIL/uL (4.20-6.10); RED CELL DISTRIBUTION WIDTH 21.1 % (11.6-13.7); WHITE BLOOD COUNT (AUTO) 8.8 K/uL (4.8-10.8)
[2018-02-05] MEDS: BLOOD GLUCOSE MONITORING 1 DEV DEV FS SCH ×4 (06:30→20:29)
[2018-02-05] MEDS: INSULIN LISPRO SLIDING SCALE 100 UNITS/ML VIAL SUBQ PRN ×4 (06:32→21:05)
[2018-02-05 06:40] LABS: ANION GAP 19.1 (8-16); CARBON DIOXIDE 14.3 mmol/L (21-32); CREATININE 0.9 mg/dL (0.7-1.3); POTASSIUM 4.4 mmol/L (3.5-5.1)
--- NOTE | 2018-02-05 07:09 | NUR ---
RECEIVED TRACH PT WITH A PORTEX 8 ON VENT. SETTINGS AC 18, VT 650, PEEP 5 AND FIO2 30%. PT SUCTIONED OBTAINED SMALL AMOUNT OF THICK YELLOW SECRETIONS, AIRWAY IS PATENT AND TRACH IS SECURE. PT IS NOT IN ANY DISTRESS AT THIS TIME. VENT IS PLUGGED INTO A RED OUTLET WITH ALARMS ON AND FUNCTIONING. AMBU BAG IS PRESENT NEAR BEDSIDE. WILL CONTINUE TO MONITOR.
--- NOTE | 2018-02-05 07:20 | NUR ---
RECEIVED PT REPORT AT BEDSIDE FROM CASINO MANAGER NURSE, PT LETHARGIC, RESPOND TO PAINFUL STIMULI, APHASIC, UNABLE TO FOLLOW COMMANDS AND MAKE NEEDS KNOWN, TRACH TO VENT WITH SETTING FIO2 30, TV 650, RR 18, PEEP 5, NO S/S OF DISTRESS, CLEAR LUNG SOUNDS EMERSON. O2 SAT 100%. SR ON POUND ATTENDANT, SOFT ABDOMEN WITH ACTIVE BOWEL SOUNDS, GT IN PLACE, FEEDING WITH GLUCERNA 1.2 AT 75ML/HR, 5 ML RESIDUALS NOTED, INCONTINENT WITH B&B'S, F/C IN PLACE WITH CLEAR YELLOW URINE VIA GRAVITY, RECTAL BAG IN PLACE WITH GREENYELLOW LIQUID STOOL VIA GRAVITY. GENERALIZED EDEMA NOTED, SEVERE WEAKNESS TO ALL EXTREMITIES, LEFT BKA NOTED, RIGHT TOES AMPUTATION NOTED, SKIN IS WARM AND DRY TO TOUCH, OPEN WOUND PRESENT (SEE WOUND ASSESSMENT). MEDLINE TO RIGHT UPPER ARM, PATENT AND KVO. VSS, FLACC 0. ON CONTACT ISOLATION, HOB ELEVATED TO 30 DEGREES, SEIZURE PRECAUTION AND FALL PRECAUTION IN PLACE, SAFETY MEASURE CHECKED, ORAL CARE PROVIDED, POSITION CHANGED FOR OFF LOAD PRESSURE, WILL CONTINUE TO MONITOR.
[2018-02-05] MEDS ORDERED: VANCOMYCIN 1,250 MG in DEXTROSE 5% 500 ML IV SCH (08:00)
[2018-02-05] MEDS: VANCOMYCIN 1,250 MG in DEXTROSE 5% 250 ML IV SCH ×2 (08:35→16:01)
[2018-02-05] MEDS: FERROUS SULFATE 300 MG/5 ML UDC GT SCH ×2 (08:35→20:29)
[2018-02-05] MEDS: CALCITRIOL 0.25 MCG CAPLF PO SCH (08:35)
[2018-02-05] MEDS: PANTOPRAZOLE 40 MG INJ VIAL IVP SCH (08:36)
[2018-02-05] MEDS: LACTOBACILLUS RHAMNOSUS GG 1 EACH CAP PO SCH (08:36)
[2018-02-05] MEDS: ENOXAPARIN 40 MG/0.4 ML SYR SUBQ SCH (08:37)
--- NOTE | 2018-02-05 09:00 | NUR ---
SCHEDULED MEDICATION GIVEN VIA GT, PT TOLERATED WELL.
--- NOTE | 2018-02-05 10:00 | NUR ---
NO S/S OF DISTRESS, VSS, FLACC 0, POSITION CHANGED FOR OFF LOAD PRESSURE.
[2018-02-05] MEDS: NACL 0.9% 1,000 ML IV SCH (10:18)
--- NOTE | 2018-02-05 11:04 | NUR ---
PT SUCTIONED OBTAINED SMALL AMOUNT OF THIN WHITE SECRETIONS, AIRWAY IS PATENT AND TRACH IS SECURE. FIO2 TITRATED TO 28%, PT NOT SOB AND NOT IN RESPIRATORY DISTRESS AT THIS TIME. WILL CONTINUE TO MONITOR.
--- NOTE | 2018-02-05 11:24 | NUR ---
SPOKE WITH BRADFORD AT [facility] [place]OLATION BEDS TODAY. FAXED HER THE [facility].
--- NOTE | 2018-02-05 11:27 | NUR ---
02/05/18 RD FOLLOW UP COMPLETED PLEASE REFER TO NUTRITION ASSESSMENT UNDER CARE ACTIVITY FOR ESTIMATED NUTRITIONAL NEEDS. 1. CONTINUE GLUCERNA 1.2 AT 75 ML/HR -THIS WILL PROVIDE 1800 ML OF VOLUME, 2160 KCAL, 108 GM OF PROTEIN, WHICH MEETS 108% OF ESTIMATED KCAL AND 100% OF ESTIMATED PROTEIN NEEDS 2. CONTINUE FLUSH [address] TO FOLLOW-UP 2-3 DAYS, HIGH RISK SHAY ESCOBEDO RD
--- NOTE | 2018-02-05 11:56 | NUR ---
DISCHARGE SCREEN DONE. PATIENT COMES [place] [facility] [place] TRACH TO VENT. HE IS ON A 7 DAY BED HOLD. NO POA. TECHNICAL INTERN IS THE BROTHER, SUZY HENSON. LEFT MESSAGE ON HIS ANSWERING MACHINE TO CONFIRM DISCHARGE PLAN. PER BRADFORD AT [facility] [place] , PATIENT IS LONG TERN PATIENT THERE. AT PRESENT NO ISOLATION BEDS, BUT THEY PLAN TO TAKE HIM BACK UPON DISCHARGE DEPENDING ON BED AVAILABILITY.
--- NOTE | 2018-02-05 12:00 | NUR ---
ORAL CARE PROVIDED, VSS, FLACC 0, POSITION CHANGED FOR OFF LOAD PRESSURE.
[2018-02-05] MEDS: SKINTEGRITY HYDROGEL TP SCH (12:43)
--- NOTE | 2018-02-05 14:00 | NUR ---
NO CHANGE OF CONDITION AT THIS TIME, VSS, FLACC 0. POSITION CHANGED FOR OFF LOAD PRESSURE.
[2018-02-05] MEDS: MUPIROCIN CA NASAL 2% 1GM TUBE NS SCH (14:30)
--- NOTE | 2018-02-05 14:49 | NUR ---
Concurrent review faxed to [facility].
[2018-02-05] MEDS: CHLORHEXADINE GLUC 2% CLOTH TP SCH (15:01)
--- NOTE | 2018-02-05 16:00 | NUR ---
ORAL CARE, PM CARE, F/C CARE PROVIDED, VSS, NO S/S OF DISTRESS, FLACC 0, POSITION CHANGED FOR OFF LOAD PRESSURE.
--- NOTE | 2018-02-05 16:20 | NUR ---
DR. HART CAME IN TO SEE PT AT BEDSIDE, WILL FOLLOW UP WITH NEW ORDERS.
--- NOTE | 2018-02-05 16:28 | NUR ---
DR. LACEY CAME IN TO SEE PT AT BEDSIDE, WILL FOLLOW UP WITH NEW ORDERS.
--- NOTE | 2018-02-05 17:20 | NUR ---
PT REMAINS ON DOCUMENTED VENT SETTINGS. VENT ALARMS REMAIN ON AND FUNCTIONING. PT IS NOT IN ANY DISTRESS AT THIS TIME. TRACH REMAINS SECURE WITH A PATENT AIRWAY.
[2018-02-05] MEDS: LEVOFLOXACIN 500 MG/D5W PREMIX 100 ML IV SCH (17:59)
--- NOTE | 2018-02-05 18:00 | NUR ---
NO CHANGED OF CONDITION AT THIS TIME, PT IS RESTING IN BED, VSS, FLACC 0, POSITION CHANGED FOR OFF LOAD PRESSURE.
--- NOTE | 2018-02-05 18:35 | NUR ---
DR. MARTINEZ CAME IN TO SEE PT AT BEDSIDE, DR. MARTINEZ SAID THE INFECTION COULD NOT BE COLONIZED DUE TO UTI AT THIS TIME.
--- NOTE | 2018-02-05 18:52 | NUR ---
RECEIVED ON A [employer]APE R860 VENTILATOR PLUGGED INTO RED OUTLET TOLERATING WELL WITHOUT ADVERSE REACTIONS NOTED TO A PORTEX DCT #8 AIRWAY SECURED WITH A AMOS TRACH TIE CUFF PRESSURE CHECKED NOTED AMBU BAG NOTED AT HOB LOC QUIET BREATH SOUNDS RHONCHI BILATERAL WITH GOOD CHEST RISE DEEP TRACHEAL SUCTION FOR MODERATE THIN PALE YELLOW SECRETIONS AIRWAY PATENT
--- NOTE | 2018-02-05 19:09 | NUR ---
REPORT GIVEN TO TIP CUTTER NURSE FOR CONTINUE OF CARE, PT IS IN STABLE CONDITION AT THIS TIME.
--- NOTE | 2018-02-05 19:20 | NUR ---
RECEIVED BEDSIDE REPORT FROM MORNING SHIFT NURSE. PATIENT LETHARGIC, RESPONSIVE TO PAINFUL STIMULI, APHASIC, UNABLE TO FOLLOW COMMANDS AND MAKE NEEDS KNOWN. PATIENT TRACH TO VENT WITH SETTING FIO2 28, TV 650, RR 18, PEEP 5. NO RESPIRATORY DISTRESS NOTED, BILATERAL LUNGS SOUND RHONCHI, O2 SAT 100%. SR ON MONITOR. ACTIVE BOWEL SOUND FROM ALL QUADS, GT IN PLACE, FEEDING WITH GLUCERNA 1.2 AT 75ML/HR WITH 250ML WATER FLUSH Q8H, 10ML RESIDUALS NOTED. INCONTINENT WITH B&B'S, F/C IN PLACE WITH CLEAR YELLOW URINE NOTED, RECTAL BAG IN PLACE WITH BROWN COLOR LIQUID STOOL VIA GRAVITY. GENERALIZED EDEMA NOTED. SEVERE WEAKNESS TO ALL EXTREMITIES. LEFT BKA NOTED, RIGHT TOES AMPUTATION NOTED. SKIN IS WARM AND DRY TO TOUCH. SEE WOUND ASSESSMENT. MEDLINE TO RIGHT UPPER ARM, PATENT AND KVO. VSS. FLACC 0. PATIENT ON CONTACT ISOLATION AND SEIZURE PRECAUTION. HOB ELEVATED TO 30 DEGREES, BED IN LOW POSITION. CALL LIGHT WITHIN REACH. WILL CONTINUE TO MONITOR.
--- NOTE | 2018-02-05 21:00 | NUR ---
ADMINISTERED SCHEDULED MEDICATIONS ORDERED, TOLERATED WELL. NO ACUTE DISTRESS NOTED. FLACC 0. BS 202 NOTED, ADMINISTERED 4UNITS OF HUMOLOG. TOLERATED WELL WITH TUBE FEEDING, NO RESIDUAL NOTED. WILL CONTINUE TO MONITOR.
--- NOTE | 2018-02-05 21:29 | NUR ---
RESTING WELL NO PULMONARY COMPLICATIONS NOTED AT THIS TIME BREATH SOUNDS RHONCHI BILATERAL WITH GOOD CHEST RISE DEEP TRACHEAL SUCTION FOR MODERATE THIN PALE YELLOW SECRETINS AIRWAY PATENT
--- NOTE | 2018-02-05 23:10 | NUR ---
NO ACUTE DISTRESS NOTED. FLACC 0. PATIENT OPENS HIS EYES SPONTANEOUSLY. INTERMITTENT COUGHING WITH WHITE COLOR SECRETIONS FROM TRACH NOTED. WILL CONTINUE TO MONITOR.
--- NOTE | 2018-02-05 23:17 | NUR ---
NO APPARENT RESPIRATORY DISTRESS NOTED GOOD CHEST RISE
[2018-02-06] VITALS (22 sets, daily range): BP systolic 91–135; BP diastolic 50–88
[2018-02-06] MEDS: VANCOMYCIN 1,250 MG in DEXTROSE 5% 250 ML IV SCH (00:10)
--- NOTE | 2018-02-06 00:20 | NUR ---
ADMINISTERED SCHEDULED ABX ORDERED. NO ACUTE DISTRESS. FLACC 0. WILL CONTINUE TO MONITOR.
[2018-02-06] MEDS: Z-GUARD PASTE TP SCH ×2 (01:00→12:52)
[2018-02-06] MEDS: HYDRAGUARD CREAM TP SCH ×2 (01:00→12:51)
[2018-02-06] MEDS: ALBUTEROL 0.083% 2.5 MG/3 ML NEBU IH SCH ×4 (01:33→18:42)
[2018-02-06] MEDS: IPRATROPIUM 0.02% 0.5 MG/2.5 ML NEBU IH SCH ×4 (01:33→18:42)
--- NOTE | 2018-02-06 01:33 | NUR ---
NO DISTRESS NOTED GOOD CHEST RISE DEEP TRACHEAL SUCTION FOR SMALL THIN PALE YELLOW SECRETIONS NOTED AIRWAY PATENT
--- NOTE | 2018-02-06 02:00 | NUR ---
NO ACUTE DISTRESS NOTED. FLACC 0. PATIENT OPEN HIS EYES SPONTANEOUSLY. REPOSITIONING THE PATIENT AND CHANGED THE DRESSING TO SACRAL. WILL CONTINUE TO MONITOR.
--- NOTE | 2018-02-06 03:31 | NUR ---
NO APPARENT SOB NOTED STABLE GOOD CHEST RISE DEEP TRACHEAL SUCTION FOR SMALL THIN PALE YELLOW SECRETIONS AIRWAY PATENT
[2018-02-06] MEDS: VALPROIC ACID 250 MG/5 ML UDC GT SCH ×3 (04:41→20:50)
[2018-02-06] MEDS: levETIRAcetam 100 MG/ML ORASYR GT SCH ×3 (04:41→20:50)
[2018-02-06] MEDS: PIPER/TAZO 3.375GM/D5W PREMIX 50 ML IV SCH ×3 (04:42→20:49)
[2018-02-06] MEDS: METOCLOPRAMIDE 10 MG/2 ML INJ VIAL IVP SCH ×3 (04:42→20:50)
--- NOTE | 2018-02-06 04:50 | NUR ---
ADMINISTERED SCHEDULED MEDICATIONS ORDERED. BEDSIDE SCANNER DOESN'T WORK. RESIDUAL CHECKED 20ML NOTED. NO ACUTE DISTRESS NOTED. FLACC 0. WILL CONTINUE TO MONITOR.
--- NOTE | 2018-02-06 05:29 | NUR ---
NO EVIDENCE OF PULMONARY DISTRESS NOTED STABLE GOOD CHEST RISE DEEP TRACHEAL SUCTION FOR SMALL THIN PALE YELLOW SECRETIONS AIRWAY PATENT
--- NOTE | 2018-02-06 06:20 | NUR ---
NO ACUTE DISTRESS NOTED. NO FEVER, TEMP 98.8 NOTED. FLACC 0. TOLERATED WELL WITH TUBE FEEDING AND VENTILATOR. WILL CONTINUE TO MONITOR.
[2018-02-06] MEDS: BLOOD GLUCOSE MONITORING 1 DEV DEV FS SCH ×4 (06:51→20:51)
--- NOTE | 2018-02-06 07:06 | NUR ---
RECEIVED BEDSIDE REPORT FROM MARIELA SITE IDENTIFICATION SPECIALIST RN FOR CONTINUITY OF CARE. PATIENT IS NONVERBAL, UNABLE TO MAKE NEEDS KNOWN OR FOLLOW SIMPLE COMMANDS. PATIENT HAS TRACH TO VENT, SETTINGS ARE AC, RATE 18, FIO2 28%, TV 650, PEEP 5. 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 PATIENT HAS A GTUBE IN PLACE TO TUBE FEEDING, 50 ML RESIDUAL NOTED. UNDERWOOD CATHETER IN PLACE, RECTAL BAG IN PLACE. PATIENT'S SKIN IS NOT INTACT, HE HAS WOUND TO SACROCOCCYX, R. LATERAL LEG, R. HIP, EROSION TO BELOW THE TRACH AND GTUBE SITE. HE ALSO HAS INCONTINENT DERMATITIS TO BUTTOCKS AND PERINEAL AREA. SEIZURE PRECAUTIONS ASSESSED AND ENFORCE, ALL SAFETY PRECAUTIONS IN PLACE, HOB IS 30 DEGREES. NO SIGNS OF DISTRESS NOTED. WILL CONTINUE TO MONITOR
--- NOTE | 2018-02-06 07:24 | NUR ---
PATIENT IS RESTING COMFORTABLY. VENT IS ON ORDERED SETTINGS: AC, 18, 650, +5, 28%, FLOW 50. VENT IS PLUGGED INTO RED OUTLET. ALARMS ARE ON AND AUDIBLE. AMBU BAG AT BEDSIDE ON VENT. TRACH IS PATENT, CLEAN AND DRY. TREATMENT WAS GIVE NAND TOLERATED WELL. SUCTIONED CLEAR THICK SMALL AMOUNT OF SECRETIONS. VITALS: PULSE 89, O2 SAT 100%, RATE 23, DIMINISHED BREATH SOUNDS.
[2018-02-06 07:52] LABS: HEMATOCRIT 25.4 % (36-52); HEMOGLOBIN 8.3 g/dL (12.0-18.0); MEAN CORPUSCULAR HEMOGLOBIN 30 pg (27-31); MEAN CORPUSCULAR HGB CONC 33 g/dL (33-37); MEAN CORPUSCULAR VOLUME 91.4 fL (80-94); PLATELET COUNT (AUTO) 147 K/uL (140-450); RED BLOOD CELL COUNT(AUTO) 2.77 MIL/uL (4.20-6.10); RED CELL DISTRIBUTION WIDTH 21.5 % (11.6-13.7); WHITE BLOOD COUNT (AUTO) 9.3 K/uL (4.8-10.8)
[2018-02-06 07:53] LABS: ANION GAP 14.2 (8-16); CARBON DIOXIDE 16.7 mmol/L (21-32); CREATININE 0.8 mg/dL (0.7-1.3); POTASSIUM 3.9 mmol/L (3.5-5.1)
--- NOTE | 2018-02-06 08:09 | NUR ---
PROVIDED ORAL CARE, PATIENT TOLERATES WELL. TURN AND REPOSITIONED FOR COMFORT, NO SIGNS OF ACUTE DISTRESS NOTED. WILL CONTINUE TO MONITOR
--- NOTE | 2018-02-06 08:38 | NUR ---
RECEIVED [facility]ICAL [facility] OF [facility] TROUGH OF 34.9, PHARMACY AWARE, STATES TO HOLD [facility] DOSE FOR TODAY.
--- NOTE | 2018-02-06 08:55 | NUR ---
VENT CHECK, NO SXN NEEDED AIRWAY IS PATENT AND PT IS SLEEPING WITH NO SIGNS OF DISTRESS NOTED
[2018-02-06] MEDS: FERROUS SULFATE 300 MG/5 ML UDC GT SCH ×2 (08:59→20:50)
[2018-02-06] MEDS: LACTOBACILLUS RHAMNOSUS GG 1 EACH CAP PO SCH (08:59)
[2018-02-06] MEDS: CALCITRIOL 0.25 MCG CAPLF PO SCH (08:59)
[2018-02-06] MEDS: PANTOPRAZOLE 40 MG INJ VIAL IVP SCH (09:00)
[2018-02-06] MEDS: ENOXAPARIN 40 MG/0.4 ML SYR SUBQ SCH (09:15)
--- NOTE | 2018-02-06 09:48 | NUR ---
DR. HART IN TO SEE AND EXAMINE PATIENT, UPDATED ON PATIENT'S CONDITION. WILL FOLLOW UP ON ANY ORDERS.
[2018-02-06 09:57] LABS: EOSINOPHILS % (MANUAL) 3 % (0-4); LYMPHOCYTES % (MANUAL) 12 % (20-46); METAMYELOCYTES % 2 % (0-0); MONOCYTES % (MANUAL) 7 % (5-12); MYELOCYTES % 2 % (0-0)
[2018-02-06] MEDS: NACL 0.9% 1,000 ML IV SCH (10:15)
--- NOTE | 2018-02-06 10:24 | NUR ---
TURNED AND REPOSITIONED PATIENT, PATIENT TOLERATED WELL. NO SIGN OF DISTRESS NOTED AT THIS TIME. WILL CONTINUE TO MONITOR
--- NOTE | 2018-02-06 11:24 | NUR ---
vent check, sxn pt small amt of yellow secretions, pt is resting airway is patent
[2018-02-06] MEDS ORDERED: FUROSEMIDE 20 MG/2 ML VIAL IVP SCH (11:30)
[2018-02-06] MEDS ORDERED: FUROSEMIDE 20 MG/2 ML VIAL IVP ONE (12:47)
[2018-02-06] MEDS: SKINTEGRITY HYDROGEL TP SCH (12:51)
--- NOTE | 2018-02-06 13:12 | NUR ---
WEANED PATIENT DOWN TO FIO2 28%. AFTER 20 MINS, VITAL SIGNS STABLE, NO SOB OR DISTRESS NOTED AND O2 SATURATIONS REMAINED AT 100%. WILL CONTINUE TO MONITOR. Addendum: 02/06/18 at 1727 by Anne-Marie Ramon RT WEANED PATIENT DOWN FROM 28% TO 26%.
--- NOTE | 2018-02-06 15:19 | NUR ---
PATIENT CLEANED WITH CHLORHEXIDINE WIPES AND SACROCOCCYX DRESSING CHANGED, PATIENT TOLERATED WELL. NO SIGNS OF ACUTE DISTRESS NOTED. WILL CONTINUE TO MONITOR.
[2018-02-06] MEDS: MUPIROCIN CA NASAL 2% 1GM TUBE NS SCH (15:29)
[2018-02-06] MEDS: CHLORHEXADINE GLUC 2% CLOTH TP SCH (15:29)
--- NOTE | 2018-02-06 15:42 | NUR ---
ORAL CARE PROVIDED, PATIENT TOLERATED WELL. NO SIGNS OF DISTRESS NOTED, WILL CONTINUE TO MONITOR
[2018-02-06] MEDS: LEVOFLOXACIN 500 MG/D5W PREMIX 100 ML IV SCH (16:31)
[2018-02-06] MEDS: DIPHENOXYLATE /ATROPINE 2.5 MG TAB GT PRN (16:31)
[2018-02-06] MEDS: INSULIN LISPRO SLIDING SCALE 100 UNITS/ML VIAL SUBQ PRN ×2 (16:32→20:53)
--- NOTE | 2018-02-06 17:19 | NUR ---
WEANED PATIENT DOWN TO FIO2 24%. AFTER 15 MINS, VITAL SIGNS STABLE, NO SOB OR DISTRESS NOTED AND O2 SATURATIONS REMAINED AT 100%. WILL CONTINUE TO MONITOR.
--- NOTE | 2018-02-06 18:01 | NUR ---
DR. ALEJANDRO IN TO SEE AND EXAMINE PATIENT, UPDATED ON PATIENT'S CONDITION. WILL FOLLOW UP ON ANY ORDERS.
--- NOTE | 2018-02-06 19:04 | NUR ---
ENDORSED CARE TO ANVIL SEATING PRESS OPERATOR RN, MARIELA, FOR CONTINUITY OF CARE, NO SIGNS OF DISTRESS AT THIS TIME.
--- NOTE | 2018-02-06 19:20 | NUR ---
RECEIVED BEDSIDE REPORT FROM MORNING SHIFT NURSE. PATIENT LETHARGIC, RESPONSIVE TO PAINFUL STIMULI, APHASIC, UNABLE TO FOLLOW COMMANDS AND MAKE NEEDS KNOWN. PATIENT OPENS HIS EYES SPONTANEOUSLY. PATIENT TRACH TO VENT WITH SETTING FIO2 24%, TV 650, RR 18, PEEP 5. NO RESPIRATORY DISTRESS NOTED, BILATERAL LUNGS SOUND RHONCHI, O2 SAT 100%. SR ON MONITOR. NO FEVER NOTED WITH TEMP 98.3. ACTIVE BOWEL SOUND FROM ALL QUADS, GT IN PLACE, FEEDING WITH GLUCERNA 1.2 AT 75ML/HR WITH 250ML WATER FLUSH Q8H, 20ML RESIDUALS NOTED. INCONTINENT WITH B&B'S, F/C IN PLACE WITH CLEAR YELLOW URINE NOTED, RECTAL TUBE IN PLACE WITH BROWN COLOR LIQUID STOOL VIA GRAVITY. GENERALIZED EDEMA NOTED. SEVERE WEAKNESS TO ALL EXTREMITIES. LEFT BKA NOTED, RIGHT TOES AMPUTATION NOTED. SKIN IS WARM AND DRY TO TOUCH. SEE WOUND ASSESSMENT FOR DETAIL. MEDLINE TO RIGHT UPPER ARM, PATENT AND KVO. VSS. FLACC 0. PATIENT ON CONTACT ISOLATION AND SEIZURE PRECAUTION. HOB ELEVATED TO 30 DEGREES, BED IN LOW POSITION. CALL LIGHT WITHIN REACH. WILL CONTINUE TO MONITOR.
[2018-02-06] MEDS: FUROSEMIDE 20 MG/2 ML VIAL IVP SCH (20:50)
--- NOTE | 2018-02-06 21:10 | NUR ---
ADMINISTERED SCHEDULED MEDICATION ORDERED, TOLERATED WELL WITH G TUBE FEEDING, RESIDUAL 40ML NOTED. NO ACUTE DISTRESS NOTED. FLACC 0. BS CHECKED 219 NOTED. 4 UNITS OF HUMALOG GIVEN. WILL CONTINUE TO MONITOR.
--- NOTE | 2018-02-06 21:30 | NUR ---
AT BEDSIDE TO CHECK THE PATIENT, UPDATED ON PATIENT'S CONDITION. WILL FOLLOW THE ORDERS.
--- NOTE | 2018-02-06 23:30 | NUR ---
NO ACUTE DISTRESS NOTED. TOLERATED WELL WITH VENT SETTING. FLACC 0. VSS. WILL CONTINUE TO MONITOR.
[2018-02-07] VITALS (17 sets, daily range): BP systolic 104–138; BP diastolic 57–93
[2018-02-07] MEDS: IPRATROPIUM 0.02% 0.5 MG/2.5 ML NEBU IH SCH ×4 (01:06→18:51)
[2018-02-07] MEDS: ALBUTEROL 0.083% 2.5 MG/3 ML NEBU IH SCH ×4 (01:06→18:51)
[2018-02-07] MEDS: HYDRAGUARD CREAM TP SCH ×2 (01:10→13:42)
[2018-02-07] MEDS: Z-GUARD PASTE TP SCH ×2 (01:10→13:42)
--- NOTE | 2018-02-07 02:10 | NUR ---
FLACC 0. INTERMITTENT COUGHING NOTED. SCANT WHITE SECRETION NOTED. NO FEVER NOTED. WILL CONTINUE TO MONITOR.
--- NOTE | 2018-02-07 04:30 | NUR ---
NO ACUTE DISTRESS NOTED. FLACC 0. VSS. NO FEVER. WILL CONTINUE TO MONITOR.
[2018-02-07 05:34] LABS: HEMOGLOBIN 8.1 g/dL (12.0-18.0)
[2018-02-07 05:48] LABS: HEMATOCRIT 24.2 % (36-52); MEAN CORPUSCULAR HEMOGLOBIN 30 pg (27-31); MEAN CORPUSCULAR HGB CONC 33 g/dL (33-37); PLATELET COUNT (AUTO) 249 K/uL (140-450); RED BLOOD CELL COUNT(AUTO) 2.72 MIL/uL (4.20-6.10); RED CELL DISTRIBUTION WIDTH 20.6 % (11.6-13.7)
[2018-02-07 05:49] LABS: ANION GAP 10.8 (8-16); CARBON DIOXIDE 18.3 mmol/L (21-32); CREATININE 0.7 mg/dL (0.7-1.3); POTASSIUM 4.1 mmol/L (3.5-5.1)
[2018-02-07] MEDS: PIPER/TAZO 3.375GM/D5W PREMIX 50 ML IV SCH ×3 (05:51→21:10)
[2018-02-07] MEDS: VALPROIC ACID 250 MG/5 ML UDC GT SCH ×3 (05:51→20:49)
[2018-02-07] MEDS: levETIRAcetam 100 MG/ML ORASYR GT SCH ×3 (05:51→20:49)
[2018-02-07] MEDS: METOCLOPRAMIDE 10 MG/2 ML INJ VIAL IVP SCH ×3 (05:51→20:48)
--- NOTE | 2018-02-07 06:00 | NUR ---
ADMINISTERED SCHEDULED MEDICATIONS ORDERED. TOLERATED WELL WITH FEEDING AND VENTILATOR. NO ACUTE DISTRESS NOTED. WILL CONTINUE TO MONITOR.
--- NOTE | 2018-02-07 06:45 | NUR ---
PATIENT RESTING COMFORTABLY. VENT SETTINGS ORDERED: 650, 18, +5, 24%, FLOW 50. VENT PLUGGED INTO RED OUTLET. ALARMS ON AND AUDIBLE. TRACH CLEAN, DRY AND PATENT. PATIENT SXNED X1 FOR A SMALL AMOUNT OF THIN CLEAR SECRETIONS. TREATMENT GIVEN AND TOLERATED WELL. AMBU BAG AT BEDSIDE ON SHELF. VITALS 100% ON 24%, PUKSE 90, RATE 24, DIMINISHED BREATH SOUNDS.
[2018-02-07] MEDS: BLOOD GLUCOSE MONITORING 1 DEV DEV FS SCH ×4 (06:49→21:07)
[2018-02-07] MEDS: INSULIN LISPRO SLIDING SCALE 100 UNITS/ML VIAL SUBQ PRN ×4 (06:50→21:08)
[2018-02-07] MEDS: NACL 0.9% 1,000 ML IV SCH (06:55)
--- NOTE | 2018-02-07 06:55 | NUR ---
BS CHECKED 194 NOTED. ADMINISTERED 2 UNITS OF HUMOLOG. WILL CONTINUE TO MONITOR.
--- NOTE | 2018-02-07 07:12 | NUR ---
RECEIVED BEDSIDE REPORT FROM MARIELA DINING SERVICES MANAGER RN, FOR CONTINUITY OF CARE. PATIENT IS NONVERBAL, UNABLE TO MAKE NEEDS KNOWN OR FOLLOW COMMANDS, EYES OPEN SPONTANEOUSLY. PATIENT SKIN IS AFEBRILE, WARM AND DRY, NOT INTACT. HAS PRESSURE WOUNDS TO SACROCOCCYX, R. BUTTOCKS, AND R. HIP, HE HAS INCONTINENT DERMATITIS TO TO PERINEAL AREA AND L. AND R. INNER BUTTOCKS, PATIENT HAS EROSION TO BELOW THE TRACH. HE HAS PERIPHERAL IV SITE TO RIGHT UPPER ARM, MIDLINE, ASYMPTOMATIC, PATENT, INTACT. PATIENT HAS TRACH TO VENT, SETTINGS ARE AC, RATE 18, FIO2 24%, TV 650, PEEP 5, BREATHING IS UNLABORED AND EVEN, NO SIGNS OF SOB. SR ON PARTNER MARKETING INTERN, FLACC 0. PATIENT HAS GTUBE IN PLACE, 300 ML RESIDUAL NOTED AT THIS TIME, TUBE FEEDING HELD. PATIENT HAS UNDERWOOD CATHETER IN PLACE TO YELLOW URINE. HE HAS RECTAL TUBE IN PLACE, NO SIGNS OF LEAKAGE NOTED. HOB IS ELEVATED TO 30 DEGREES, SEIZURE PRECAUTIONS ASSESSED AND ENFORCED. ALL SAFETY PRECAUTIONS IN PLACE, CALL LIGHT WITHIN REACH. NO SIGNS OF DISTRESS AT THIS TIME, WILL CONTINUE TO MONITOR.
[2018-02-07 07:23] LABS: LYMPHOCYTES % (MANUAL) 10 % (20-46); MONOCYTES % (MANUAL) 6 % (5-12)
[2018-02-07 07:24] LABS: BASOPHILS % (MANUAL) 0 % (0-2); EOSINOPHILS % (MANUAL) 2 % (0-4); METAMYELOCYTES % 4 % (0-0)
[2018-02-07 07:25] LABS: MYELOCYTES % 6 % (0-0)
--- NOTE | 2018-02-07 07:52 | NUR ---
PATIENT TURNED AND REPOSITIONED, ORAL CARE PROVIDED. TOLERATES WELL, WILL CONTINUE TO MONITOR.
[2018-02-07] MEDS: PANTOPRAZOLE 40 MG INJ VIAL IVP SCH (08:23)
[2018-02-07] MEDS: FERROUS SULFATE 300 MG/5 ML UDC GT SCH ×2 (08:23→20:49)
[2018-02-07] MEDS: FUROSEMIDE 20 MG/2 ML VIAL IVP SCH ×2 (08:23→20:49)
[2018-02-07] MEDS: LACTOBACILLUS RHAMNOSUS GG 1 EACH CAP PO SCH (08:24)
[2018-02-07] MEDS: DIPHENOXYLATE /ATROPINE 2.5 MG TAB GT PRN (08:24)
[2018-02-07] MEDS: CALCITRIOL 0.25 MCG CAPLF PO SCH (08:24)
[2018-02-07] MEDS: ENOXAPARIN 40 MG/0.4 ML SYR SUBQ SCH (08:27)
--- NOTE | 2018-02-07 09:30 | NUR ---
DR. HART IN TO SEE AND EXAMINE PATIENT. UPDATED ON PATIENT'S CONDITION, AWARE THAT IV ABX, LEVAQUIN AND ZOSYN, ORDERS HAVE FALLEN OFF, STATES TO CONTINUE WITH IV ABX THERAPY. WILL FOLLOW UP ON ORDERS.
--- NOTE | 2018-02-07 10:39 | NUR ---
NO RESIDUAL NOTED AT THIS TIME, CONTINUED TUBE FEEDING. PATIENT TOLERATING WELL.
[2018-02-07] MEDS: SKINTEGRITY HYDROGEL TP SCH (13:42)
[2018-02-07] MEDS: MUPIROCIN CA NASAL 2% 1GM TUBE NS SCH (15:10)
[2018-02-07] MEDS: CHLORHEXADINE GLUC 2% CLOTH TP SCH (15:10)
[2018-02-07] MEDS: LEVOFLOXACIN 500 MG/D5W PREMIX 100 ML IV SCH (16:19)
--- NOTE | 2018-02-07 18:41 | NUR ---
DR. RAMIREZ IN TO SEE AND EXAMINE PATIENT, UPDATED ON PATIENT'S CONDITION. STATES THAT PATIENT CAN BE DOWNGRADED TO TELEMETRY SINCE PATIENT IS STABLE.
--- NOTE | 2018-02-07 18:59 | NUR ---
Received pt stable on vent support at documented settings, suctioned small amounts of thick clear yellow secretions, hhn tx given, tolerated well, no resp distress or SOB noted at this time, Portex 8 trach secured/patent/midline, alarms set and audible, ambu bag at bedside, vent plugged into red outlet, pulse ox on, will continue to monitor.
--- NOTE | 2018-02-07 19:07 | NUR ---
ENDORSED CONTINUITY OF CARE TO SWIMMING POOL ATTENDANT RN, MARIELA, FOR CONTINUITY OF CARE. NO SIGNS OF DISTRESS NOTED
--- NOTE | 2018-02-07 19:20 | NUR ---
RECEIVED BEDSIDE REPORT FROM MORNING SHIFT NURSE. PATIENT RESPONSIVE TO PAINFUL STIMULI, APHASIC, UNABLE TO FOLLOW COMMANDS AND MAKE NEEDS KNOWN. PATIENT OPENS HIS EYES SPONTANEOUSLY. PATIENT TRACH TO VENT WITH SETTING FIO2 24%, TV 650, RR 18, PEEP 5. NO RESPIRATORY DISTRESS NOTED, BILATERAL LUNGS SOUND RHONCHI, O2 SAT 100%. ST ON MONITOR WITH HR 102. NO FEVER NOTED WITH TEMP 98.8. ACTIVE BOWEL SOUND FROM ALL QUADS, GT IN PLACE, FEEDING WITH GLUCERNA 1.2 AT 75ML/HR WITH 250ML WATER FLUSH Q8H, 60ML RESIDUALS NOTED. INCONTINENT WITH B&B'S, F/C IN PLACE WITH CLEAR YELLOW URINE NOTED, RECTAL TUBE IN PLACE WITH BROWN COLOR LIQUID STOOL VIA GRAVITY. GENERALIZED EDEMA NOTED. SEVERE WEAKNESS TO ALL EXTREMITIES. LEFT BKA NOTED, RIGHT TOES AMPUTATION NOTED. SKIN IS WARM AND DRY TO TOUCH. SEE WOUND ASSESSMENT FOR DETAIL. MEDLINE TO RIGHT UPPER ARM, PATENT AND KVO. VSS. FLACC 0. PATIENT ON CONTACT ISOLATION AND SEIZURE PRECAUTION. HOB ELEVATED TO 30 DEGREES, BED IN LOW POSITION. CALL LIGHT WITHIN REACH. WILL CONTINUE TO MONITOR.
[2018-02-07] MEDS: VANCOMYCIN 1,250 MG in NACL 0.9% 250 ML IV SCH (20:01)
--- NOTE | 2018-02-07 21:00 | NUR ---
ADMINISTERED SCHEDULED MEDICATIONS ORDERED. BS CHECKED 232 NOTED. ADMINISTERED 4UNITS OF HUMOLOG. TOLERATED WELL WITH VENT SETTING, NO ACUTE RESP DISTRESS NOTED. WILL CONTINUE TO MONITOR.
--- NOTE | 2018-02-07 21:10 | NUR ---
DR. MARTINEZ AT BEDSIDE TO CHECK THE PATIENT, UPDATED PATIENT'S CONDITION. WILL FOLLOW THE ORDER.
[2018-02-08] VITALS (12 sets, daily range): BP systolic 100–148; BP diastolic 66–98
--- NOTE | 2018-02-08 | NUR ---
PATIENT TOLERATED WELL WITH VENT SETTING, NO ACUTE RESP DISTRESS NOTED. FLACC 0. VSS. 60ML RESIDUAL FROM G TUBE FEEDING. NO FEVER. WILL CONTINUE TO MONITOR.
[2018-02-08] MEDS: ALBUTEROL 0.083% 2.5 MG/3 ML NEBU IH SCH ×4 (01:06→19:29)
[2018-02-08] MEDS: IPRATROPIUM 0.02% 0.5 MG/2.5 ML NEBU IH SCH ×4 (01:06→19:29)
[2018-02-08] MEDS: Z-GUARD PASTE TP SCH ×2 (01:28→13:00)
[2018-02-08] MEDS: HYDRAGUARD CREAM TP SCH ×2 (01:28→13:00)
--- NOTE | 2018-02-08 02:00 | NUR ---
FLACC 0. NO FEVER NOTED. NO ACUTE DISTRESS NOTED. INTERMITTENT COUGHING NOTED. WHITE COLOR SECRETION NOTED.
[2018-02-08] MEDS: VALPROIC ACID 250 MG/5 ML UDC GT SCH ×3 (04:19→20:22)
[2018-02-08] MEDS: levETIRAcetam 100 MG/ML ORASYR GT SCH ×3 (04:20→20:21)
[2018-02-08] MEDS: PIPER/TAZO 3.375GM/D5W PREMIX 50 ML IV SCH ×3 (04:20→21:10)
[2018-02-08] MEDS: METOCLOPRAMIDE 10 MG/2 ML INJ VIAL IVP SCH ×3 (04:20→20:15)
[2018-02-08 05:13] LABS: HEMATOCRIT 24.7 % (36-52); HEMOGLOBIN 8.1 g/dL (12.0-18.0); MEAN CORPUSCULAR HEMOGLOBIN 30 pg (27-31); MEAN CORPUSCULAR HGB CONC 33 g/dL (33-37); MEAN CORPUSCULAR VOLUME 90.6 fL (80-94); PLATELET COUNT (AUTO) 250 K/uL (140-450); RED BLOOD CELL COUNT(AUTO) 2.72 MIL/uL (4.20-6.10); RED CELL DISTRIBUTION WIDTH 21.2 % (11.6-13.7); WHITE BLOOD COUNT (AUTO) 13.5 K/uL (4.8-10.8)
--- NOTE | 2018-02-08 05:55 | NUR ---
PT TRANSFERRED TO 123B VIA AMBU BAG WITHOUT INCIDENCE
--- NOTE | 2018-02-08 05:56 | NUR ---
RECEIVED PT TRANSFERRED FROM ICU BY BED. PT IS NON VERBAL, ON TRACH TO VENT WITH O2SAT 97%. NO ACUTE RESPIRATORY DISTRESS NOTED. BEDREST. WITH GT FEEDING INFUSING WELL. UNDERWOOD CATH TO GRAVITY DRAINING TO CLEAR URINE. PT HAS DIARRHEA , WITH RECTAL TUBE, ICU NURSE JUST CHANGED THE BAG PRIOR TO TRANSFER . ST ON TELE MONITOR. WITH MULTIPLE PRESSURE ULCERS. SACROCOCCYGEAL PRESSURE ULCER WITH DRESSING, CLEAN AND DRY. HAS LT BKA AND RT TMA. BED SIDE RAILS WITH PADS FOR SEIZURE PRECAUTION. BED ON LOW POSITION, FREQUENT ROUNDS NEEDED. CALL LIGHT PLACED WITHIN REACH. VITAL SIGNS STABLE. WILL CONTINUE TO MONITOR.
[2018-02-08] MEDS: BLOOD GLUCOSE MONITORING 1 DEV DEV FS SCH ×4 (06:13→20:28)
[2018-02-08 06:18] LABS: ANION GAP 15.2 (8-16); CARBON DIOXIDE 20.9 mmol/L (21-32); CREATININE 0.9 mg/dL (0.7-1.3); POTASSIUM 4.1 mmol/L (3.5-5.1)
[2018-02-08] MEDS: INSULIN LISPRO SLIDING SCALE 100 UNITS/ML VIAL SUBQ PRN ×4 (06:19→20:45)
--- NOTE | 2018-02-08 06:19 | NUR ---
REC'D PT ON CARESCAPE VENT SETTINGS AC18 VT 650 PEEP 5 FIO2 24% ALARMS ON AND AUDIBLE AMBU BAG IS AT SIDE OF VENT I\L TX GIVEN WITH DUONEB 3ML WITH NO ADVERSE REACTIONS POST TX, B\S ARE COARSE BILATERALLY SXN PT SMALL AMT OF CLEAR SECRETIONS PT IS TRACH WITH PORTEX 8 AND SKIN INTEGRITY IS INTACT PT IS RESTING WITH NO SIGNS OF DISTRESS NOTED AT THIS TIME Addendum: 02/08/18 at 1308 by Michelle Marte RT TX WAS GIVEN WITH ALBUTEROL 2.5 MG AND ATROVENT 0.5MG NOT DUONEB 3ML
--- NOTE | 2018-02-08 06:19 | NUR ---
BLOOD SUGAR WAS CHECKED RESULT 271. INSULIN COVERAGE HUMALOG 6 UNITS SUBQ GIVEN.
--- NOTE | 2018-02-08 06:20 | NUR ---
CALLED KIN, ICU NURSE AND SAID HE WILL FINISHES THE 0600 INTERVENTIONS.
[2018-02-08 06:41] LABS: LYMPHOCYTES % (MANUAL) 9 % (20-46); MONOCYTES % (MANUAL) 10 % (5-12)
[2018-02-08 06:42] LABS: EOSINOPHILS % (MANUAL) 4 % (0-4); METAMYELOCYTES % 5 % (0-0)
--- NOTE | 2018-02-08 07:18 | NUR ---
ENDORSED PT IN STABLE CONDITION TO AM NURSE FOR CONTINUITY OF CARE.
--- NOTE | 2018-02-08 07:19 | NUR ---
RECEIVED REPORT FROM PM NURSE AT BEDSIDE. 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 PT ON FALL RISK, IS HIGH RISK FOR ASPIRATION. HAS G-TUBE FEEDING RUNNING. PT HAS RECTAL BAG, FC IN PLACE. PT IS ON TRACH TO VENT . HAS RT MIDLINE CATHETER FOR IV INFUSION. NS INFUSING AT 10 ML/HR. PT SKIN IS NON-INTACT, ON WOUND BAG. PER PM NURSE , LAST BS 271, 6 UNITS INSULIN ADMINISTERED. RAISED HOB. PT HAS BILATERAL EDEMA, RT HAND MORE EDEMATOUS THAN LEFT HAND. PT HAS BKA ON LFT LEG AND AMPUTATION OF TOES ON RT LEG. ALL SAFETY MEASURE IN PLACE. NO SIGN OF DISTRESS NOTED. WILL CONTINUE TO MONITOR PT.
--- NOTE | 2018-02-08 08:41 | NUR ---
VENT CHECK, NO SXN NEEDED AIRWAY IS PATENT AND PT IS SLEEPING
[2018-02-08] MEDS: VANCOMYCIN 1,250 MG in NACL 0.9% 250 ML IV SCH ×2 (09:28→21:18)
[2018-02-08] MEDS: FERROUS SULFATE 300 MG/5 ML UDC GT SCH ×2 (09:28→20:28)
[2018-02-08] MEDS: PANTOPRAZOLE 40 MG INJ VIAL IVP SCH (09:28)
[2018-02-08] MEDS: CALCITRIOL 0.25 MCG CAPLF PO SCH (09:29)
[2018-02-08] MEDS: FUROSEMIDE 20 MG/2 ML VIAL IVP SCH ×2 (09:29→20:18)
[2018-02-08] MEDS: LACTOBACILLUS RHAMNOSUS GG 1 EACH CAP PO SCH (09:29)
[2018-02-08] MEDS: ENOXAPARIN 40 MG/0.4 ML SYR SUBQ SCH (09:34)
--- NOTE | 2018-02-08 09:59 | NUR ---
ADMINISTERED MEDS TO PT ORDERED. TOLERATED WELL. G-TUBE RESIDUAL 300 ML . TUBE FEEDING ON HOLD PER PARAMETER.WILL CHECK RESIDUAL IN HOUR. ELEVATED HOB . NO SIGN OF DISTRESS NOTED.ALL SAFETY MEASURE I PLACE WILL CONTINUE TO MONITOR PT.
[2018-02-08] MEDS: NACL 0.9% 1,000 ML IV SCH (10:18)
--- NOTE | 2018-02-08 11:08 | NUR ---
VENT CHECK, SXN PT MODERATE AMT OF CLEAR THICK SECRETIONS, AIRWAY IS PATENT
--- NOTE | 2018-02-08 12:54 | NUR ---
VENT CHECK I\L TX GIVEN WITH ALBUTEROL 2.5 MG AND ATROVENT 0.5MG WITH NO ADVERSE REACTION POST TX CHANGED HME SXN PT LARGE AMT OF THICK WHITE SECRETIONS
[2018-02-08] MEDS: SKINTEGRITY HYDROGEL TP SCH (13:00)
--- NOTE | 2018-02-08 13:00 | NUR ---
CHECKED ON PT. G-TUBE PATENT AND INTACT. ADMINISTER MEDS ORDERED. PT LYING ON HIS BED. NO SIGN OF DISTRESS NOTED. ALL SAFETY MEASURE IN PLACE. ALL IV ACCESS SITE INTACT AND PATENT.CHANGED PT WOUND DRESSING ORDERED. WILL CONTINUE TO MONITOR PT.
--- NOTE | 2018-02-08 14:31 | NUR ---
VENT CHECK, AIRWAY IS PATENT AND PT IS RESTING
[2018-02-08] MEDS: MUPIROCIN CA NASAL 2% 1GM TUBE NS SCH (15:00)
[2018-02-08] MEDS: CHLORHEXADINE GLUC 2% CLOTH TP SCH (15:00)
--- NOTE | 2018-02-08 15:00 | NUR ---
CHECKED ON PT. LYING ON HIS BED. NO DISTRESS NOTED. ASSESSED HIS UPPER EXTREMITY HAS PITTING EDEMA 2+. CHANGED THE POSITION OF PT WITH HELP OF ANIMATION DIRECTOR. PT ON LASIX, FC PATENT, URINE DRAINING WELL. RECTAL TUBE PATENT AND INTACT. ALL SAFETY MEASURE IN PLACE. WILL CONTINUE TO MONITOR PT.
[2018-02-08] MEDS: LEVOFLOXACIN 500 MG/D5W PREMIX 100 ML IV SCH (16:42)
--- NOTE | 2018-02-08 17:00 | NUR ---
CHENGED NEW TUBE FEEDING . 10 ML RESIDUAL OBTAINED AT TIME OF STARTING NEW FEEDING. PT TOLERATED TUBE FEEDING WELL. CHANGED THE PT WITH HELP OF FABRIC WORKER AND REPOSITIONED PT . HAS BILATERAL EDEMA ON UPPER EXTREMITY. . ELEVATED HAND OF PT. NO SIGN OF DISTRESS NOTED.ALL SAFETY MEASURE IN PLACE. WILL CONTINUE TO MONITOR PT.
--- NOTE | 2018-02-08 17:21 | NUR ---
vent check, sxn pt small amt of secretions, trach care done pt is resting
--- NOTE | 2018-02-08 19:15 | NUR ---
ENDORSED PT TO PM NURSE FOR CONTINUITY OF CARE. PT IN STABLE CONDITION.
--- NOTE | 2018-02-08 19:20 | NUR ---
RECEIVED PATIENT AWAKE LYING ON WITH TRACH TO VENT WITH 02 SAT OF 100%, F/C IN PLACE DRAINING WELL,WITH RECTAL TUBE, ON G-TUBE FEEDING. FALL/ SEIZURES PRECAUTION APPLIED. PATIENT IS NON-VERBAL. WILL CONTINUE TO MONITOR.
--- NOTE | 2018-02-08 19:29 | NUR ---
PATIENT RESTING COMFORTABLY BUT AWAKE. CIRCUIT PATENT. TRACH PATENT, CLEAN AND DRY. AMBU BAG AT BEDSIDE ON VENT. ALARMS ARE ON AND AUDIBLE. VENT PLUGGED INTO RED OUTLET. VENT SETTINGS ARE ORDERED: 650, 18, +5, 24%. NURSE DEBRA AT BEDSIDE TAKING BLOOD PRESSURE. ASKED HIM TO CALL ME SHOULD HE NEED ANYTHING AT ALL AND LEFT NUMBER. TX WAS WELL TOLERATED. VITALS: 100% ON 24%, PULSE 95, RATE 20, BP 123/78, AND BREATH SOUNDS DIMINISHED BUT GOOD CHEST RISE. SXNED X2 FOR CLEAR, SMALL AMOUNT OF THIN SECRETIONS.
--- NOTE | 2018-02-08 20:00 | NUR ---
CHECKED RESIDUAL 60ML. ELEVATED HEAD OF THE BED. WILL CONTINUE TO MONITOR.
[2018-02-08] MEDS ORDERED: FUROSEMIDE 20 MG/2 ML VIAL IVP ONE (20:55)
--- NOTE | 2018-02-08 21:00 | NUR ---
B/S TAKEN AND RECORDED 226 WITH COVERAGE PER SLIDING SCALE. V/S TAKEN AND RECORDED. PATIENT LEAKING STOOL CHANGED PATIENT AND DRESSING. REPOSITIONED PATIENT TO HIS SIDE AND PLACE IN COMFORTABLE POSITION. CALLED DR. CONTRERAS ABOUT PATIENT EDEMA AND ORDER ANOTHER LASIX 20MG ONE TIME ONLY.SUCTION PATIENT WITH SMALL AMOUNT OF WHITE SPUTUM. NO S/S OF DISTRESS NOTED AT THIS TIME. WILL CONTINUE TO MONITOR.
--- NOTE | 2018-02-08 21:00 | NUR ---
SCHEDULE MEDICATION GIVEN TOLERATED WELL.
--- NOTE | 2018-02-08 23:00 | NUR ---
REPOSITIONED PATIENT AND PLACE IN COMFORTABLE POSITION. SUCTIONED PATIENT WITH SCANT AMOUNT OF WHITE SPUTUM. NO S/S OF DISTRESS. MAINTAINED HIGH FOWLERS POSITION. WILL CONTINUE TO MONITOR.
[2018-02-09] VITALS (9 sets, daily range): BP systolic 83–121; BP diastolic 54–72
--- NOTE | 2018-02-09 | NUR ---
V/S TAKEN AND RECORDED. NO S/S OF DISTRESS NOTED AT THIS TIME. WILL CONTINUE TO MONITOR.
[2018-02-09] MEDS: ALBUTEROL 0.083% 2.5 MG/3 ML NEBU IH SCH ×4 (01:08→19:05)
[2018-02-09] MEDS: IPRATROPIUM 0.02% 0.5 MG/2.5 ML NEBU IH SCH ×4 (01:08→19:05)
[2018-02-09] MEDS: Z-GUARD PASTE TP SCH ×2 (01:17→14:41)
[2018-02-09] MEDS: HYDRAGUARD CREAM TP SCH ×2 (01:17→14:40)
--- NOTE | 2018-02-09 02:05 | NUR ---
REPOSITIONED PATIENT AND PLACE IN [place] POSITION. NO S/S OF DISTRESS NOTED.02 SAT 98% @24%. SUCTION PATIENT WITH WHITE SPUTUM IN SMALL AMOUNT. RECTAL TUBE IN PLACE. F/C DRAINING FREELY. WILL CONTINUE TO MONITOR.
--- NOTE | 2018-02-09 04:00 | NUR ---
CHANGED PATIENT AND DRESSING REPLACE. REPOSITIONED PATIENT ,ELEVATE HEAD FOR ASPIRATION PRECAUTION. WILL CONTINUE TO MONITOR.
[2018-02-09] MEDS: levETIRAcetam 100 MG/ML ORASYR GT SCH ×3 (05:22→20:37)
[2018-02-09] MEDS: PIPER/TAZO 3.375GM/D5W PREMIX 50 ML IV SCH ×3 (05:22→20:36)
[2018-02-09] MEDS: METOCLOPRAMIDE 10 MG/2 ML INJ VIAL IVP SCH ×3 (05:23→20:36)
[2018-02-09] MEDS: VALPROIC ACID 250 MG/5 ML UDC GT SCH ×3 (05:30→20:37)
[2018-02-09] MEDS: BLOOD GLUCOSE MONITORING 1 DEV DEV FS SCH ×4 (06:16→20:35)
[2018-02-09] MEDS: INSULIN LISPRO SLIDING SCALE 100 UNITS/ML VIAL SUBQ PRN ×4 (06:17→20:39)
--- NOTE | 2018-02-09 07:17 | NUR ---
RCV'D PT ON MECHANICAL VENTILATION. PT IS TRACHED WITH PORTEX 8. VENT SETTINGS CHARTED. TRACH IS IN PLACE AND SECURED. VENT IS CONNECTED TO RED OUTLET. ALARMS AUDIBLE. AMBU BAG AT BEDSIDE. BS COARSE BILAT. SPO2 99% ON 24% FIO2. HR 99. CUFF PRESSURE 30 CMH2O. PT IS AWAKE AND QUIET. HHN TX OF ALBUTEROL AND ATROVENT IS GIVEN WITH NO ADVERSE REACTION. RN CHAGO AT BEDSIDE. NO SOB OR DISTRESS NOTED. WILL CONTINUE TO MONITOR.
--- NOTE | 2018-02-09 07:25 | NUR ---
GAVE REPORT TO AM SHIFT RN AT BEDSIDE FOR CONTINUITY OF CARE. PATIENT IN STABLE CONDITION.
--- NOTE | 2018-02-09 07:25 | NUR ---
RECEIVED REPORT FROM ACUPRESSURIST RN. PT RESTING IN BED. SPONTANEOUS EYES OPENING, NONVERBAL, RESPONDS TO PAIN STIMULI. SKIN DRY AND WARM TO TOUCH. ON TRACH TO VENT 18 FIO2 24 TV 650 PEEP 5. LUNGS CLEAR. YOCASTA MIDLINE DOUBLE LUMEN INTACT. FLUSHES WELL. NS RUNNING AT 10 ML/HR. G-TUBE ON LUQ. INTACT. RESIDUAL 80 ML NOTED. GLUCERNA 1.2 RUNNING AT 75 ML/HR. ABDOMEN FLAT, SOFT AND NON-TENDER. ACTIVE BOWEL SOUND. EDEMATOUS BOTH UPPER AND LOWER EXTREMITIES. BNA ON LEFT LOWER EXTREMITY. AMPUTEE TOES ON RIGHT LOWER EXTREMITY. FLACC 0. NO ACUTE RESPIRATORY DISTRESS NOTED. AFEBRILE. KEPT HOB ELEVATED. BED LOCKED. WILL CONTINUE TO MONITOR.
[2018-02-09 07:40] LABS: ANION GAP 13.3 (8-16); CREATININE 0.9 mg/dL (0.7-1.3); POTASSIUM 3.3 mmol/L (3.5-5.1)
[2018-02-09 07:50] LABS: WHITE BLOOD COUNT (AUTO) 17.1 K/uL (4.8-10.8)
[2018-02-09 07:51] LABS: HEMATOCRIT 24.5 % (36-52); HEMOGLOBIN 7.6 g/dL (12.0-18.0); MEAN CORPUSCULAR HEMOGLOBIN 29 pg (27-31); MEAN CORPUSCULAR HGB CONC 31 g/dL (33-37); PLATELET COUNT (AUTO) 290 K/uL (140-450); RED BLOOD CELL COUNT(AUTO) 2.66 MIL/uL (4.20-6.10); RED CELL DISTRIBUTION WIDTH 19.1 % (11.6-13.7)
[2018-02-09 07:52] LABS: BASOPHILS # (AUTO) 0.1 K/uL (0.00-0.22); BASOPHILS % (AUTO) 0.3 % (0.0-2.0); EOSINOPHILS # (AUTO) 0.4 K/uL (0-0.4); EOSINOPHILS % (AUTO) 2.2 % (0.0-4.0); LYMPHOCYTES # (AUTO) 1.4 K/uL (2.0-11.5); LYMPHOCYTES % (AUTO) 8.2 % (20.5-51.1); MONOCYTES # (AUTO) 1.1 K/uL (0.8-1.0); MONOCYTES % (AUTO) 6.3 % (1.7-9.3); NEUTROPHILS # (AUTO) 14.1 K/uL (1.8-7.7)
[2018-02-09] MEDS: NACL 0.9% 1,000 ML IV SCH (08:23)
[2018-02-09] MEDS: FERROUS SULFATE 300 MG/5 ML UDC GT SCH ×2 (08:28→20:37)
[2018-02-09] MEDS: VANCOMYCIN 1,250 MG in NACL 0.9% 250 ML IV SCH ×2 (08:28→09:00)
[2018-02-09] MEDS: FUROSEMIDE 20 MG/2 ML VIAL IVP SCH (08:29)
[2018-02-09] MEDS: PANTOPRAZOLE 40 MG INJ VIAL IVP SCH (08:30)
[2018-02-09] MEDS: LACTOBACILLUS RHAMNOSUS GG 1 EACH CAP PO SCH (08:30)
[2018-02-09] MEDS: CALCITRIOL 0.25 MCG CAPLF PO SCH (08:31)
[2018-02-09] MEDS: ENOXAPARIN 40 MG/0.4 ML SYR SUBQ SCH (08:48)
--- NOTE | 2018-02-09 08:59 | NUR ---
MEDICATION DONE. TOLERATING WELL. MORNING CARE PROVIDED. KEPT PT CLEAN AND DRY. WILL CONTINUE TO MONITOR.
--- NOTE | 2018-02-09 09:10 | NUR ---
HELD VANCOMYCIN [facility].
[2018-02-09] MEDS ORDERED: POTASSIUM CHLORIDE 20% 40 MEQ/15 ML UDC GT SCH (09:30)
--- NOTE | 2018-02-09 09:44 | NUR ---
PAGED AND RECEIVED CALL FROM DR. MARTINEZ. ASKED IF HE WANTS TO CONTINUE VANCOMYCIN PER PHARMACY. DOCTOR SAID "YES". PHARMACY NOTIFIED. WILL CARRYOUT ORDER.
[2018-02-09] MEDS ORDERED: VANCOMYCIN PER PHARMACY MC PRN (10:05)
--- NOTE | 2018-02-09 10:37 | NUR ---
FAXED CONCURRENT REVIEW TO [facility] [phone] PHONE MEDARDO [phone]
--- NOTE | 2018-02-09 11:30 | NUR ---
RESIDUAL NOTED 160 ML. HELD FEEDING AT THIS TIME.
--- NOTE | 2018-02-09 13:35 | NUR ---
BP 97/63
[2018-02-09] MEDS: SKINTEGRITY HYDROGEL TP SCH (14:41)
--- NOTE | 2018-02-09 15:00 | NUR ---
RECHECKED RESIDUAL. 0 ML RESIDUAL NOTED. FEEDING RESTARTED.
--- NOTE | 2018-02-09 15:09 | NUR ---
[place] [facility] [place] SAID [place] WILL STILL TAKE THE PATIENT BACK UPON DISCHARGE. STILL HAS TO GET AN ISOLATION BED.
--- NOTE | 2018-02-09 15:22 | NUR ---
FOLLOW UP DONE WITH DR. HART REGARDING C.DIFF TEST. SAID DO C. DIFF TEST AGAIN. SAMPLE COLLECTED AND TAKEN TO THE LAB.
[2018-02-09] MEDS: LEVOFLOXACIN 500 MG/D5W PREMIX 100 ML IV SCH (16:41)
--- NOTE | 2018-02-09 16:41 | NUR ---
ADMINISTERED SCHEDULED MED. TOLERATING WELL. REPOSITIONED. CLEANED PT. WOUND CARE DONE. CATHETER CARE PROVIDED. KEPT HOB ELEVATED. WILL CONTINUE TO MONITOR.
--- NOTE | 2018-02-09 17:08 | NUR ---
DR. HART AWARE ABOUT HB 7.6 AND POTASSIUM 3.3.
--- NOTE | 2018-02-09 18:11 | NUR ---
PT RESTING IN BED COMFORTABLY. SUCTIONING DONE NEEDED. ORAL PROVIDED. KEPY PT CLEAN. NO ACUTE RESPIRATORY DISTRESS NOTED. NO CHANGE IN LOC. CONTINUE ON MONITOR.
--- NOTE | 2018-02-09 18:23 | NUR ---
Mandatory Supplementary Documentation for C. diff test requisition not taken to lab as per charge nurse. Pt. does not need C. diff test, as previous test result was negative.
--- NOTE | 2018-02-09 19:11 | NUR ---
REPORT GIVEN TO DEVELOPMENT TECHNICIAN RN FOR CONTINUITY OF CARE. PT ON STABLE CONDITION.
--- NOTE | 2018-02-09 19:12 | NUR ---
REPORT RECEIVED FROM AM NURSE AT BEDSIDE. PT IN STABLE CONDITION. AAOX1. INTRODUCED SELF TO PT. PT NON-VERBAL. BOARD UPDATED. PT HAS A TRACH TO VENT. VENT SETTINGS ARE FIO2 24, VT 650, RR 18, PEEP 5. RECTAL TUBE IN PLACE. UNDERWOOD IN PLACE. TUBE FEEDING GLUCERNA 1.2 AT 75ML/HR WITH 250ML Q8H H20 FLUSH. PT HAS R UA MIDLINE DOUBLE LUMEN RUNNING NS AT 10ML/HR PATENT AND INTACT. SKIN WARM, DRY, AND NOT INTACT DUE TO SACRAL AND BUTTOCK PRESSURE ULCER. BED LOCKED IN LOW POSITION. CALL KENNEDY WITHIN REACH. SAFETY MEASURES IN PLACE. SEIZURE PRECAUTIONS. WOUND BED. Addendum: 02/09/18 at 1958 by Fredi Jerez RN EDEMA BLE.
--- NOTE | 2018-02-09 20:36 | NUR ---
CHRISTAL HERNÁNDEZ, FERROUS SULFATE GIVEN THROUGH GTUBE. HERLINDA SHAH AND WM. BS 220. 4 UNITS OF HUMALOG GIVEN. PT TOLERATED WELL. Addendum: 02/09/18 at 2249 by Fredi Jerez RN RESIDUAL 50ML FROM GTUBE FEEDING. RATE OF 75ML/HR OF GLUCERNA 1.2 CONTINUED.
--- NOTE | 2018-02-09 22:00 | NUR ---
PT VENT ALARMING HIGH PRESSURE. PT COUGHING. SUCTION DONE. WHITE SPUTUM NOTED.
[2018-02-10] VITALS: BP 106/62
[2018-02-10] MEDS: Z-GUARD PASTE TP SCH ×2 (00:45→13:38)
[2018-02-10] MEDS: HYDRAGUARD CREAM TP SCH ×2 (00:45→13:38)
[2018-02-10] MEDS: ALBUTEROL 0.083% 2.5 MG/3 ML NEBU IH SCH ×4 (00:47→19:32)
[2018-02-10] MEDS: IPRATROPIUM 0.02% 0.5 MG/2.5 ML NEBU IH SCH ×4 (00:47→19:32)
--- NOTE | 2018-02-10 01:00 | NUR ---
WOUND CARE DONE. 4X4 PLACED ON RIGHT HIP. ZGAURD APPLIED TO BUTTOCKS, PERINEAL, AND SCROTAL AREA. HYDRAGUARD APPLIED TO GTUBE SITE ALONG WITH 4X4 SPLIT GAUZE.
[2018-02-10] MEDS: ACETAMINOPHEN 650 MG/20.3 ML UDC GT PRN (03:36)
--- NOTE | 2018-02-10 03:36 | NUR ---
TYL GIVEN THROUGH GTUBE FOR A FEVER OF 100.4. PT TOLERATED WELL. WILL REASSESS IN 1 HOUR.
[2018-02-10 04:00] VITALS: BP 94/58
[2018-02-10] MEDS: PIPER/TAZO 3.375GM/D5W PREMIX 50 ML IV SCH (04:48)
[2018-02-10] MEDS: METOCLOPRAMIDE 10 MG/2 ML INJ VIAL IVP SCH ×3 (04:48→20:10)
[2018-02-10] MEDS: VALPROIC ACID 250 MG/5 ML UDC GT SCH ×3 (04:48→20:11)
[2018-02-10] MEDS: levETIRAcetam 100 MG/ML ORASYR GT SCH ×3 (04:48→20:10)
--- NOTE | 2018-02-10 04:48 | NUR ---
DEPAKENE AND KEPPRA GIVEN THROUGH GTUBE. ZOSYN HUNG AND RUNNING. REGLAN GIVEN IVP. PT TOLERATED WELL.
[2018-02-10] MEDS: BLOOD GLUCOSE MONITORING 1 DEV DEV FS SCH ×4 (06:11→20:27)
[2018-02-10] MEDS: INSULIN LISPRO SLIDING SCALE 100 UNITS/ML VIAL SUBQ PRN ×4 (06:20→20:32)
--- NOTE | 2018-02-10 06:20 | NUR ---
BS 281. 6 UNITS OF HUMALOG GIVEN. PT TOLERATED WELL.
--- NOTE | 2018-02-10 06:40 | NUR ---
RECTAL BAG CHANGED.
--- NOTE | 2018-02-10 06:50 | NUR ---
FEEDING COMPLETE. NEW BOTTLE OF GLUCERNA 1.2 RUNNING.
[2018-02-10 06:51] LABS: ANION GAP 13.7 (8-16); CARBON DIOXIDE 19.4 mmol/L (21-32); POTASSIUM 4.1 mmol/L (3.5-5.1)
--- NOTE | 2018-02-10 07:12 | NUR ---
RECEIVED ON A [employer] CARESCAPE R860 VENTILATOR PLUGGED INTO RED OUTLET TOLERATING WELL WITHOUT INCIDENT NOTED TO A PORTEC DCT #8 AIRWAY SECURED WITH A AMOS TRAC TIE CUFF PRESSURE CHECKED NOTED AMBU BAG NOTED H[facility] CONTINUOS PULSE OXIMETER AT [facility] ON AND FUNCTIONING WELL LOW SATURATION ALARM SET AT 92% LOC QUIET GOOD CHEST RISE BREATH SOUNDS RHONCHI BILATERAL DEEP TRACHEAL SUCTION FOR MODERATE THIN YELLOW SECRETIONS AIRWAY PATENT
--- NOTE | 2018-02-10 07:20 | NUR ---
REPORT GIVEN TO AM NURSE AT BEDSIDE. PT IN STABLE CONDITION.
--- NOTE | 2018-02-10 07:21 | NUR ---
RECEIVED BEDSIDE REPORT FROM PM SHIFT NURSE. PT ASLEEP IN BED, RESPIRATIONS EVEN & UNLABORED. TRACH TO VENT IN PLACE. CALL LIGHT WITHIN REACH. RT AT BEDSIDE PROVIDING TREATMENT.
[2018-02-10 07:46] LABS: WHITE BLOOD COUNT (AUTO) 18.9 K/uL (4.8-10.8)
[2018-02-10 07:47] LABS: HEMATOCRIT 23.5 % (36-52); HEMOGLOBIN 7.7 g/dL (12.0-18.0); MEAN CORPUSCULAR HEMOGLOBIN 30 pg (27-31); MEAN CORPUSCULAR HGB CONC 33 g/dL (33-37); MEAN CORPUSCULAR VOLUME 91.4 fL (80-94); PLATELET COUNT (AUTO) 268 K/uL (140-450); RED BLOOD CELL COUNT(AUTO) 2.57 MIL/uL (4.20-6.10); RED CELL DISTRIBUTION WIDTH 19.9 % (11.6-13.7)
[2018-02-10 08:00] VITALS: BP 98/60
--- NOTE | 2018-02-10 08:00 | NUR ---
RIGHT UPPER ARM MIDLINE IV ACCESS WITH MOD SWELLING. SITE LEAKING FLUID. CONT TO HOLD IV INFUSION. IV PROTONIX HELD.
[2018-02-10] MEDS: PANTOPRAZOLE 40 MG INJ VIAL IVP SCH (09:00)
[2018-02-10] MEDS: CALCITRIOL 0.25 MCG CAPLF PO SCH (09:02)
[2018-02-10] MEDS: FERROUS SULFATE 300 MG/5 ML UDC GT SCH ×2 (09:02→20:10)
[2018-02-10] MEDS: LACTOBACILLUS RHAMNOSUS GG 1 EACH CAP PO SCH (09:02)
[2018-02-10] MEDS: ENOXAPARIN 40 MG/0.4 ML SYR SUBQ SCH (09:03)
--- NOTE | 2018-02-10 09:15 | NUR ---
PT AWAKE, UNABLE TO MAKE NEEDS KNOWN OR FOLLOW SIMPLE COMMANDS. TRACH TO VENT IN PLACE. RESPIRATIONS EVEN & UNLABORED. CALL LIGHT WITHIN REACH. PT REPOSITIONED FOR WOUND MGMT.
[2018-02-10 09:30] LABS: EOSINOPHILS % (MANUAL) 2 % (0-4); LYMPHOCYTES % (MANUAL) 10 % (20-46); MONOCYTES % (MANUAL) 5 % (5-12)
[2018-02-10 09:31] LABS: METAMYELOCYTES % 4 % (0-0)
--- NOTE | 2018-02-10 09:46 | NUR ---
RESTING COMFORTABLY NO PULMONARY DISTRESS NOTED GOOD CHEST RISE DEEP TRACHEAL SUCTION FOR SMALL THIN PALE YELLOW SECRETIONS AIRWAY PATENT OROPHARYNGEAL SUCTION FOR LARGE THI WHITE TO CLEAR SECRETIONS
[2018-02-10] MEDS: NACL 0.9% 1,000 ML IV SCH (10:18)
--- NOTE | 2018-02-10 11:24 | NUR ---
NO EVIDENCE OF RESPIRATORY DISTRESS NOTED AT THIS TIME DEEP TRACHEAL SUCTION FOR SMALL THIN PALE YELLOW SECRETIONS AIRWAY PATENT
--- NOTE | 2018-02-10 11:40 | NUR ---
PT AWAKE, APHASIC, RESPIRATIONS EVEN & UNLABORED. DR HART CAME IN TO VISIT PT. REMINDED HIM RE: LEAKING MIDLINE IV. PER MD, HE WILL INPUT ORDER FOR PICC INSERTION.
[2018-02-10 12:00] VITALS: BP 99/71
--- NOTE | 2018-02-10 13:30 | NUR ---
VERIFIED TELEPHONE CONSENT FROM CRISTHIAN (NEXT OF KIN) VIA 2-NURSE FOR ULTRASOUND-GUIDED PICC INSERTION.
[2018-02-10] MEDS: SKINTEGRITY HYDROGEL TP SCH (13:39)
--- NOTE | 2018-02-10 13:45 | NUR ---
WOUND TREATMENT PROVIDED FOR SACROCOCCYX, & BUTTOCK PRESSURE ULCERS. REPOSITIONED FOR WOUND MGMT. PARRISH ADL CARE WELL. ORAL CARE PROVIDED. TRACH TO VENT IN PLACE, RESPIRATIONS EVEN & UNLABORED.
--- NOTE | 2018-02-10 13:54 | NUR ---
STABLE GOOD CHEST RISE DEEP TRACHEAL SUCTION FOR MODERATE THIN PALE YELLOW SECRETIONS AIRWAY PATENT OROPHARYNX SUCTION FOR COPIOUS THIN PALE WHITE TO CLOUDY SECRETIONS
--- NOTE | 2018-02-10 15:52 | NUR ---
NO APPARENT DISTRESS NOTED AT THIS TIME GOOD CHEST RISE
[2018-02-10 16:00] VITALS: BP 96/61
[2018-02-10] MEDS ORDERED: FLUCONAZOLE 100 MG TAB GT SCH (17:00)
[2018-02-10] MEDS ORDERED: FLUCONAZOLE 100 MG TAB GT ONE (17:00)
--- NOTE | 2018-02-10 17:03 | NUR ---
RESTING COMFORTABLY NO SOB NOTED GOOD CHEST RISE AND AERATION THROUGHOUT LUNG REDDY AIRWAY PATENT
--- NOTE | 2018-02-10 17:40 | NUR ---
PICC NURSE ARRIVED FOR PICC INSERTION.
--- NOTE | 2018-02-10 19:24 | NUR ---
BEDSIDE REPORT GIVEN TO PM SHIFT NURSE.
--- NOTE | 2018-02-10 19:25 | NUR ---
REPORT RECEIVED FROM AM NURSE AT BEDSIDE. PT IN STABLE CONDITION. AAOX1. BOARD UPDATED. FLACC 0. NO SOB. PT ON MECHANICAL VENT TO TRACH. VENT SETTINGS FIO2 24, VT 650, RR 18, PEEP 5. PICC LINE INSERTED L UA DOUBLE LUMEN PATENT AND INTACT. PT NONVERBAL. SKIN WARM, DRY, AND NOT INTACT DUE TO SACRAL AND BUTTOCK WOUND. PT HAS RECTAL BAG. PT HAS UNDERWOOD. PT ON WOUND BED. BED LOCKED IN LOW POSITION. CALL KENNEDY WITHIN REACH. SAFETY PRECAUTIONS IN PLACE. SEIZURE PRECAUTIONS. Addendum: 02/10/18 at 1941 by Fredi Jerez RN TUBE FEEDING @75ML/HR WITH 250ML H20 FLUSH Q8H.
[2018-02-10 19:29] LABS: APPEARANCE,URINE CLOUDY (CLEAR); COLOR,URINE YELLOW (YELLOW); UGLUCOSE 1+ (NEGATIVE)
[2018-02-10 19:30] LABS: BILIRUBIN,URINE NEGATIVE (NEGATIVE); BLOOD, URINE 3+ (NEGATIVE); LEUKOCYTE ESTERASE ,URINE 2+ (NEGATIVE); NITRITE, URINE NEGATIVE (NEGATIVE)
[2018-02-10 19:49] LABS: RBC,URINE 11-20 (MOD) /HPF (0-5); WBC,URINE TOO MANY TO COUNT /HPF (0-5); YEAST,URINE Many /HPF (None Seen)
[2018-02-10 20:00] VITALS: BP 120/74
--- NOTE | 2018-02-10 20:10 | NUR ---
DEPAKENE, FERROUS SULFATE, AND KEPPRA GIVE THROUGH GTUBE. RESIDUAL OF 20ML. FEEDING CONTINUED. BS 255. 6 UNITS OF INSULIN GIVEN. PT TOLERATED WELL.
[2018-02-10] MEDS ORDERED: VANCOMYCIN 750 MG in DEXTROSE 5% 250 ML IV SCH (21:00)
--- NOTE | 2018-02-10 21:55 | NUR ---
NEW FEEDING BOTTLE PLACED. NEW TUBING. PRIMED AND RUNNING. PT TOLERATING WELL.
--- NOTE | 2018-02-10 22:55 | NUR ---
MIDLINE D/C. CANNULA INTACT. PT TOLERATED WELL.
[2018-02-11] VITALS (8 sets, daily range): BP systolic 104–125; BP diastolic 53–88
[2018-02-11] MEDS: IPRATROPIUM 0.02% 0.5 MG/2.5 ML NEBU IH SCH ×4 (00:54→19:37)
[2018-02-11] MEDS: ALBUTEROL 0.083% 2.5 MG/3 ML NEBU IH SCH ×4 (00:54→19:37)
--- NOTE | 2018-02-11 01:00 | NUR ---
WOUND CARE DONE. ZGUARD APPLIED. HYDRAGUARD APPLIED.
[2018-02-11] MEDS: HYDRAGUARD CREAM TP SCH ×2 (01:17→13:03)
[2018-02-11] MEDS: Z-GUARD PASTE TP SCH ×2 (01:17→13:03)
--- NOTE | 2018-02-11 03:30 | NUR ---
PT SLEEPING COMFORTABLY. NO S/S OF DISTRESS NOTED. NO SOB. FLACC 0. WILL CONTINUE TO MONITOR.
[2018-02-11] MEDS: levETIRAcetam 100 MG/ML ORASYR GT SCH ×3 (04:18→21:00)
[2018-02-11] MEDS: METOCLOPRAMIDE 10 MG/2 ML INJ VIAL IVP SCH ×3 (04:18→21:00)
[2018-02-11] MEDS: VALPROIC ACID 250 MG/5 ML UDC GT SCH ×3 (04:18→21:00)
--- NOTE | 2018-02-11 04:18 | NUR ---
REGLAN GIVEN IVP. DEPAKENE AND KEPPRA GIVEN THROUGH GTUBE. PT TOLERATED WELL.
--- NOTE | 2018-02-11 04:30 | NUR ---
RESIDUAL OF 200ML. FEEDING STOPPED. WILL REASSESS IN 1 HOUR.
[2018-02-11] MEDS: BLOOD GLUCOSE MONITORING 1 DEV DEV FS SCH ×4 (06:00→20:59)
[2018-02-11] MEDS: INSULIN LISPRO SLIDING SCALE 100 UNITS/ML VIAL SUBQ PRN ×4 (06:05→20:47)
--- NOTE | 2018-02-11 06:05 | NUR ---
BS 229. 4 UNITS OF HUMALOG GIVEN. PT TOLERATED WELL.
[2018-02-11 06:34] LABS: MEAN CORPUSCULAR HEMOGLOBIN 29 pg (27-31); WHITE BLOOD COUNT (AUTO) 21.6 K/uL (4.8-10.8)
--- NOTE | 2018-02-11 06:45 | NUR ---
RESIDUAL 50ML. FEEDING RESTARTED.
--- NOTE | 2018-02-11 07:15 | NUR ---
REPORT GIVEN TO AM NURSE AT BEDSIDE. PT IN STABLE CONDITION.
[2018-02-11 07:22] LABS: ANION GAP 11.7 (8-16); CARBON DIOXIDE 18.6 mmol/L (21-32); POTASSIUM 4.3 mmol/L (3.5-5.1)
--- NOTE | 2018-02-11 07:30 | NUR ---
RECEIVED REPORT FROM WELL POINT PUMPING SUPERVISOR NURSE. PT IS RESTING IN BED, SEMI FOWLERS, AAOX1, BEDBOUND, CENTRAL LINE ON THE LEFT UPPER ARM, EMERSON UPPER EXT. EDEMA NOTED, PT IS ON TRACH TO VENT, NO S/S OF RESPIRATORY DISTRESS OR DISCOMFORT NOTED, PT HAS [place]ER[place] CATHETER IN PLACE 100ML OF CLEAR YELLOW URINE NOTED, PT HAS RECTAL BAG IN PLACE, SMALL AMOUNT OF BROWN, LIQUID STOOL NOTED IN DRAINING TUBE, G-TUBE IS IN PLACE, PT HAS 200 ML OF RESIDUAL AT THIS TIME, WILL HOLD FEEDING AND NOTIFY DR. 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
--- NOTE | 2018-02-11 07:42 | NUR ---
RECEIVED ON A GE CARESCAPE R860 VENTILATOR PLUGGED INTO RED OUTLET TOLERATING WELL WITHOUT ADVERSE REACTIONS NOTED TO A PORTEX DCT #8 AIRWAY SECURED WITH A AMOS TRACH TIE CUFF PRESSURE CHECKED NOTED [facility] CONTINUOS PULSE OXIMETER AT BEDSIDE ON AND FUNCTIONING WELL LOW SATURATION ALARM SET AT 92% LOC QUIET RESPONSIVE TO STIMULI BREATH SOUNDS COARSE RHONCHI BILATERAL GOOD CHEST RISE DEEP TRACHEAL SUCTION FOR LARGE THICK YELLOW SECRETIONS AIRWAY PATENT
--- NOTE | 2018-02-11 08:00 | NUR ---
DR. HART HERE TO SEE PATIENT. INFORMED DR. HART THE PATIENT HAD A HIGH RESIDUAL OF 200ML FROM THE G-TUBE. PER DR. HART HOLD THE FEEDING FOR 2 HOURS AND RESUME AT 30ML/HR, INCREASE BY 10ML/HR Q8H IF TOLERATED UNTIL REACHING 75ML/HR.
[2018-02-11 08:07] LABS: HEMATOCRIT 24.3 % (36-52); HEMOGLOBIN 7.6 g/dL (12.0-18.0); RED BLOOD CELL COUNT(AUTO) 2.61 MIL/uL (4.20-6.10)
[2018-02-11 08:08] LABS: MEAN CORPUSCULAR HGB CONC 31 g/dL (33-37); PLATELET COUNT (AUTO) 240 K/uL (140-450); RED CELL DISTRIBUTION WIDTH 20.3 % (11.6-13.7)
[2018-02-11 08:09] LABS: LYMPHOCYTES % (MANUAL) 12 % (20-46); METAMYELOCYTES % 4 % (0-0); MONOCYTES % (MANUAL) 8 % (5-12)
[2018-02-11] MEDS: CALCITRIOL 0.25 MCG CAPLF PO SCH (09:11)
[2018-02-11] MEDS: FERROUS SULFATE 300 MG/5 ML UDC GT SCH ×2 (09:12→21:00)
[2018-02-11] MEDS: LACTOBACILLUS RHAMNOSUS GG 1 EACH CAP PO SCH (09:12)
[2018-02-11] MEDS: ENOXAPARIN 40 MG/0.4 ML SYR SUBQ SCH (09:14)
[2018-02-11] MEDS: PANTOPRAZOLE 40 MG INJ VIAL IVP SCH (09:14)
--- NOTE | 2018-02-11 09:24 | NUR ---
RESTING COMFORTABLY NO DISTRESS NOTED GOOD CHEST RISE
--- NOTE | 2018-02-11 10:15 | NUR ---
PATIENT CLEANED, LINENS CHANGE, WOUND CARE DONE AND REPOSITIONED. ALL NEEDS ARE MET AT THIS TIME. CALL LIGHT IS WITHIN REACH.
[2018-02-11] MEDS: NACL 0.9% 1,000 ML IV SCH (10:18)
--- NOTE | 2018-02-11 11:03 | NUR ---
NO DISTRESS NOTED GOOD CHEST RISE DEEP TRACHEAL SUCTION FOR LARGE THICK TO FROTHY THIN YELLOW SECRETIONS AIRWAY PATENT AIRWAY PATENT
[2018-02-11] MEDS: SKINTEGRITY HYDROGEL TP SCH (13:03)
--- NOTE | 2018-02-11 13:42 | NUR ---
NO EVIDENCE OF PULMONARY DISTRESS NOTED GOOD CHEST RISE DEEP TRACHEAL SUCTION FOR MODERATE THIN PALE YELLOW SECRETIONS OROPHARYNX SUCTION FOR COPIOUS GELATINOUS PALE YELLOW TO CLOUDY SECRETIONS AIRWAY PATENT SATURATION 98% ON FIO2 OF 24% PEEP 5cmH2O POST HHN THERAPY TITRATED PEP TO 3cmH2O SOFTWARE PRODUCT MANAGER TO NOTIFY MARC/CONSTANZA
--- NOTE | 2018-02-11 13:45 | NUR ---
PATIENT WAS TURNED FOR COMFORT. PATIENT RESTING IN LEFT LATERAL POSITION. ALL NEEDS MET AT THIS TIME.
--- NOTE | 2018-02-11 15:35 | NUR ---
PATIENT RESTING COMFORTABLY. ALL NEEDS ARE MET AT THIS TIME.
--- NOTE | 2018-02-11 15:57 | NUR ---
STABLE NO SOB NOTED GOOD CHEST RISE AND AERATION THROUGHOUT BILATERAL LUNG REDDY AIRWAY PATENT
--- NOTE | 2018-02-11 16:00 | NUR ---
MADE DR ELADIO HART AWARE OF CALL INTO DR REJI RAMIREZ FOR REVIEW OF OXYGEN AND PEEP TITRATION CURRENT FIO2 AT 24% PEEP 5cmH2O SATURATION 98% PER TORBO DR HART OK TO TITRATE PEEP TO 3cmH2O
[2018-02-11] MEDS ORDERED: VANCOMYCIN PER PHARMACY MC PRN (16:30)
--- NOTE | 2018-02-11 17:29 | NUR ---
Concurrent Review faxed to [facility].
[2018-02-11] MEDS ORDERED: MEROPENEM 1,000 MG in NACL 0.9% 100 ML IV SCH (17:30)
[2018-02-11] MEDS: VANCOMYCIN 1GM/DEXT 5% PREMIX 200 ML IV SCH (18:56)
--- NOTE | 2018-02-11 19:21 | NUR ---
ENDORSED PATIENT TO FELT HAT STEAMER NURSE. PATIENT IS STABLE WITH ALL NEEDS MET AT THIS TIME.
--- NOTE | 2018-02-11 19:37 | NUR ---
RECEIVED BEDSIDE REPORT FROM DAY SHIFT RN MARC. 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 TRACT TO VENTILATOR, VENT SETTINGS AT: FIO2 24, VT 650, RR 18, PEEP 3, FLOW 55, P MAX 45. LUNG SOUNDS CLEAR BILATERALLY, TRAC DRESSING IS CLEAN AND INTACT, SPUTUM COLLECTION CONTAINER IS AT 1000 ML, LIGHT GREEN, FOAMY SPUTUM. NOTED DRESSING ON UPPER CHEST, LAST CHANGED 02/08, INTACT. LEFT CENTRAL LINE, DOUBLE LUMEN, DRESSING INTACT, INFUSING VANCOMYCIN AT 135 ML/HR. G-TUBE DRESSING CHANGED, SLIGHT GREEN/BLOODY DRAINAGE AROUND PREVIOUS GAUZE, 100 ML RESIDUES ASPIRATED AND RETURNED. RECTAL TUBE IN PLACE, DRAINING DARK BROWN, LIQUID STOOL, PATIENT HAS SACRAL WOUND, ON WOUND BED, UNDERWOOD CATH IN PLACE DRAINING YELLOW URINE AT 200 ML. UPDATED BOARD, CALL LIGHT WITHIN REACH. WILL CONTINUE TO MONITOR.
--- NOTE | 2018-02-11 19:37 | NUR ---
PATIENT IS RESTING COMFORTABLY. VENT SETTINGS ORDERED: 18, 650, +3, 24%, , FLOW 55. VITALS STABLE AT PULSE 101, 99% ON 24%, RATE 23, BREATH SOUNDS COARSE/ DIMINISHED. SXNED X1 FOR SCANT AMOUNT OF THINK CLEAR SECRETIONS. VENT PLUGGED INTO RED OUTLET. AMBU BAG AT BEDSIDE. TRACH PATENT, DRY AND CLEAN. ALARMS ON AND AUDIBLE. TREATMENT GIVEN WITH NO ADVERSE REACTION.
--- NOTE | 2018-02-11 21:00 | NUR ---
SUCTIONED PATIENT X2 FOR HIGH PRESSURE ALARM, RESOLVED. SCHEDULED MEDICATIONS GIVEN PATIENT TOLERATED WELL. BG 250 MEDICATED WITH 4 UNITS INSULIN ACCORDING TO DRS ORDER.
--- NOTE | 2018-02-11 22:00 | NUR ---
CALLED R/T DUE TO CONTINUED HIGH PRESSURE ALARM, R/T CHRISTIAN AT BEDSIDE, HYPEROXYGENATION AND SUCTIONED X 1. G-TUBE TUBING CHANGED, RESTARTED NEW FORMULA OF GLUCERNA 1.2 AT 40 ML/HR. WILL CONTINUE TO MONITOR.
[2018-02-11] MEDS: ACETAMINOPHEN 650 MG/20.3 ML UDC GT PRN (22:02)
--- NOTE | 2018-02-11 22:02 | NUR ---
PATIENT HAS TREMORS, HR 105-112, TEMP 103.4 F. MEDICATED WITH ACETAMINOPHEN ACCORDING TO MD ORDER FOR FEVER. WILL CONTINUE TO MONITOR.
[2018-02-12] VITALS (7 sets, daily range): BP systolic 107–140; BP diastolic 64–78
--- NOTE | 2018-02-12 | NUR ---
FEVER RESOLVED 99.0 F. WILL CONTINUE TO MONITOR. Addendum: 02/13/18 at 0103 by Belle Waite RN WRONG TIME
--- NOTE | 2018-02-12 00:45 | NUR ---
WOUND CARE PROVIDED ACCORDING TO MABLE TORIBIO. WILL CONTINUE TO MONITOR.
[2018-02-12] MEDS: HYDRAGUARD CREAM TP SCH ×2 (01:00→13:16)
[2018-02-12] MEDS: Z-GUARD PASTE TP SCH ×2 (01:00→13:17)
[2018-02-12] MEDS: ALBUTEROL 0.083% 2.5 MG/3 ML NEBU IH SCH ×4 (01:11→19:22)
[2018-02-12] MEDS: IPRATROPIUM 0.02% 0.5 MG/2.5 ML NEBU IH SCH ×4 (01:11→19:22)
--- NOTE | 2018-02-12 01:29 | NUR ---
PATIENT WAS GIVEN TX WITH NO ADVERSE EFFECTS. NURSE SUMMER AT BEDSIDE CLOSELY MONITORING HYPERTENSIVE, FEBRILE PATIENT. PATIENT GENTLY SUCTIONED ORALLY Q2 ORALLY. THIS ROUND, SUCTIONED LARGE AMOUNTS OF THICK CLEAR SECRETIONS.
--- NOTE | 2018-02-12 01:35 | NUR ---
PT BP 140/77 HR 120 TEMP 100.F, PT CONTINUES TO SHOW TREMORS, TELE MONITOR SHOWS VENTRICULAR TACHYCARDIA. REPOSITIONED/CHANGED ELECTRODES. CONTINUES TO SHOW VENTRICULAR TACHYCARDIA. MONITOR BRIANA JERNIGAN AND CHARGE NURSE PRASHANTH JONES. CALLED DR SAL TO UPDATE. ORDERS TO CONTINUE TO MONITOR AND CALL BACK IF B/P AND HR CONTINUES TO INCREASE. WILL CONTINUE TO MONITOR.
[2018-02-12] MEDS: ACETAMINOPHEN 650 MG/20.3 ML UDC GT PRN ×2 (02:07→20:31)
--- NOTE | 2018-02-12 02:08 | NUR ---
TEMP 100.4 F, MEDICATED WITH TYLENOL ACCORDING TO MD ORDER, PLACED ICE PACKS ON CORE, COOL TOWEL ON HEAD, REMOVED EXTRA CLOTHING/SHEETS, AND PLACED AC ON. WILL CONTINUE TO MONITOR.
--- NOTE | 2018-02-12 03:00 | NUR ---
SUCTIONED PATIENT X2 FOR HIGH PRESSURE ALARM, RESOLVED, O2 SAT 100 HR 110. R/T AWARE. G-TUBE RESIDUES AT 20 ML. INCREASED FORMULA TO 50 ML/HR. WILL CONTINUE TO MONITOR.
--- NOTE | 2018-02-12 04:00 | NUR ---
V/S TAKEN B/P 118/70 HR 118 TEMP 99.0. PT CONTINUES TO HAVE INTERMITTENT TREMORS, WILL CONTINUE TO MONITOR. NOTED YELLOW/WHITE DISCHARGE FROM PENIS TIP. CATHETER CARE PROVIDED, CHARGE NURSE PRASHANTH AWARE WILL CONTINUE TO MONITOR.
[2018-02-12] MEDS: VALPROIC ACID 250 MG/5 ML UDC GT SCH ×3 (04:26→20:30)
[2018-02-12] MEDS: MEROPENEM 1,000 MG in NACL 0.9% 100 ML IV SCH ×3 (04:26→20:31)
[2018-02-12] MEDS: levETIRAcetam 100 MG/ML ORASYR GT SCH ×3 (04:27→20:31)
[2018-02-12] MEDS: METOCLOPRAMIDE 10 MG/2 ML INJ VIAL IVP SCH ×3 (04:27→20:31)
[2018-02-12] MEDS: VANCOMYCIN 1GM/DEXT 5% PREMIX 200 ML IV SCH (05:36)
--- NOTE | 2018-02-12 06:13 | NUR ---
TEMP 100.7F , CALLED DR SAL FOR ORDERS. WILL CONTINUE TO MONITOR.
[2018-02-12] MEDS ORDERED: IBUPROFEN 600 MG TAB GT ONE (06:25)
[2018-02-12] MEDS ORDERED: IBUPROFEN 600 MG TAB ONE (06:33)
[2018-02-12] MEDS: BLOOD GLUCOSE MONITORING 1 DEV DEV FS SCH ×4 (06:35→20:24)
[2018-02-12] MEDS: INSULIN LISPRO SLIDING SCALE 100 UNITS/ML VIAL SUBQ PRN ×4 (06:36→21:00)
[2018-02-12 06:42] LABS: ANION GAP 15.9 (8-16); CARBON DIOXIDE 19.9 mmol/L (21-32); HEMATOCRIT 23.4 % (36-52); HEMOGLOBIN 7.5 g/dL (12.0-18.0); MEAN CORPUSCULAR HEMOGLOBIN 30 pg (27-31); MEAN CORPUSCULAR HGB CONC 32 g/dL (33-37); MEAN CORPUSCULAR VOLUME 91.9 fL (80-94); PLATELET COUNT (AUTO) 188 K/uL (140-450); POTASSIUM 3.8 mmol/L (3.5-5.1); RED BLOOD CELL COUNT(AUTO) 2.55 MIL/uL (4.20-6.10); RED CELL DISTRIBUTION WIDTH 21.6 % (11.6-13.7); WHITE BLOOD COUNT (AUTO) 24.2 K/uL (4.8-10.8)
--- NOTE | 2018-02-12 06:54 | NUR ---
BG 243 MEDICATED WITH 4 UNITS INSULIN ACCORDING TO MD ORDER.
--- NOTE | 2018-02-12 07:10 | NUR ---
ENDORSED PATIENT TO DAY SHIFT NURSE, RT AT BEDSIDE.
--- NOTE | 2018-02-12 07:10 | NUR ---
RECEIVED TRACH PT WITH A PORTEX 8 TRACH ON VENT. SETTINGS AC 18, VT 650, PEEP 3 AND FIO2 24%. PT SUCTIONED OBTAINED SMALL AMOUNT OF THICK WHITE/CLEAR SECRETIONS, AIRWAY IS PATENT AND TRACH IS SECURE. PT IS NOT ALERT BUT IS NOT IN ANY DISTRESS AT THIS TIME. VENT IS PLUGGED INTO A RED OUTLET WITH ALARMS ON AND FUNCTIONING. AMBU BAG IS PRESENT AT BEDSIDE. WILL CONTINUE TO MONITOR.
--- NOTE | 2018-02-12 07:15 | NUR ---
RECEIVED PATIENT REPORT AT BEDSIDE. PATIENT CURRENTLY RECEIVING BREATHING TX. NO S/S OF DISTRESS. PATIENT IS TRACH TO VENT WITH SETTINGS: 24% FIO2, VT 650 FLOW RATE 55 PEEP 3 RATE 18. PATIENT ON CONTINUOUS O2 MONITORING. O2 SAT 99% AT THIS TIME. EDEMA NOTED ON BUE. GT IN PLACE. RECTAL TUBE IN PLACE, DARK BROWN LIQUID STOOL NOTED. UNDERWOOD CATHETER IN PLACE, DRAINING CLEAR ORANGE URINE. PATIENT ON TELE MONITORING. BED LOWERED WITH CALL LIGHT WITHIN REACH. WILL CONTINUE TO MONITOR
[2018-02-12 07:34] LABS: EOSINOPHILS % (MANUAL) 2 % (0-4); LYMPHOCYTES % (MANUAL) 12 % (20-46); METAMYELOCYTES % 3 % (0-0); MONOCYTES % (MANUAL) 5 % (5-12)
[2018-02-12] MEDS: LACTOBACILLUS RHAMNOSUS GG 1 EACH CAP PO SCH (08:56)
[2018-02-12] MEDS: FERROUS SULFATE 300 MG/5 ML UDC GT SCH ×2 (08:56→20:30)
[2018-02-12] MEDS: PANTOPRAZOLE 40 MG INJ VIAL IVP SCH (08:56)
[2018-02-12] MEDS: CALCITRIOL 0.25 MCG CAPLF PO SCH (08:57)
[2018-02-12] MEDS: ENOXAPARIN 40 MG/0.4 ML SYR SUBQ SCH (08:57)
--- NOTE | 2018-02-12 10:04 | NUR ---
TEMP CHECKED VIA AXILLARY 99.7. NO S/S OF DISTRESS NOTED
--- NOTE | 2018-02-12 10:15 | NUR ---
ORAL CARE GIVEN. PATIENT TOLERATED WELL
[2018-02-12] MEDS: NACL 0.9% 1,000 ML IV SCH (10:18)
--- NOTE | 2018-02-12 10:57 | NUR ---
PATIENT GIVEN BED BATH. PATIENT TURNED AND REPOSITIONED FOR COMFORT. SACRAL WOUND DRESSING CHANGED. PATIENT TOLERATED WELL
--- NOTE | 2018-02-12 11:05 | NUR ---
WOUND CARE RE-EVALUATION NOTE: SKIN ASSESSMENT DONE WITH PRIMARY RN WITH NEW DISCOVERY OF ABSCESS LIKED SKIN TO RIGHT POSTERIOR LOWER BACK WITH DARK PURPLE DENUDED SKIN 4X4CM AND INDURATION ABOUT 1 CM TALL, TJ-WOUND SKIN MERGED WITH SACRALCOCCYX WOUND, WARM TO TOUCH, INTEGUMENTARY FROM PREVIOUS ASSESSMENT: -TRACH SITE TJ STOMA SKIN EROSION WITH PARTIAL THICKNESS LOSS DERMIS, 2.X1.8X0.1CM, WOUND BED IS RED, MOIST, NO ODOR. RESPONDING TO TREATMENT - GT SITE TJ STOMA WITH SKIN INTACT, NO DRAINAGE -INCONTINENT ASSOCIATE DERMATITIS (IAD) REDNESS TO: HEAD OF PENIS, B/L GROINS EXTENDED TO POSTERIOR SCROTUM HAS RESOLVED -PRESSURE INJURY STAGE 3 TO SACROCOCCYX 8X5X0.2 CM, WOUND BED PALE PINK, TJ WOUND SKIN DENUDED, WITH MULTIPLE SKIN EROSIONS, AREAS MOIST, NO ODOR. -IAD TO RIGHT AND LEFT INNER BUTTOCKS EXTENDED TO PERIANAL PARTIAL THICKNESS SKIN EROSIONS WITH LARGEST SIZE ON LEFT BUTTOCK 1.5X4X0.2 CM TO PERIANAL, WOUND BED IS PINK, CLEAN AND MOIST. NO ODOR AREAS RESPONDING TO TX. -IAD TO LEFT POSTERIOR THIGH WITH MULTIPLE SMALL PARTIAL THICKNESS SKIN EROSIONS AREAS RESOLVED -PRESSURE INJURY STAGE 2 TO RIGHT LATERAL THIGH CLOSE TO HIP AREA RESOLVED WITH EPITHELIUM TISSUE -RIGHT LOWER LEG TJ ANKLE AREA PARTIAL THICKNESS SKIN LOSS, AREA HEALED. RECOMMENDATIONS: -CONTINUE RECTAL TUBE AND NOT TO EXCESS 30 DAYS, MAY CONSIDER RECTAL BAG ONCE THE PERIANAL IAD HAS HEALED -ULTRA SOUND TO RIGHT POSTERIOR LOWER BACK POSSIBLE ABSCESS -APPLY HYDRAGUARD TO GT-SITE TJ-STOMA SKIN AND COVER WITH SPLIT DRESSING , PLEASE CHANGE SPLIT GAUZE DRESSING PRN IS SOILING. -APPLY Z-GUARD TO IAD RIGHT AND LEFT INNER BUTTOCKS EXTENDED TO PERIANAL BID AND PRN IF SOILING - CLEANSE TRACH SITE TJ STOMA SKIN EROSION WITH NS AND APPLY HYDRAGEL TO WOUND BED AND COVER WITH DRY DRESSING QD AND PRN IF SOILING - CLEANSE SACRALCOCCYX WITH NS AND APPLY HYDRAGEL TO WOUND BED AND Z-GUARD TO PERIWOUND COVER WITH DRY DRESSING QD AND PRN IF SOILING -APPLY FORM DRESSING TO RIGHT LATERAL THIGH/ HIP AND LEFT LOWER LEG BKA CHANGE Q5 DAYS AND PRN IF SOILING PREVENTION -OFFLOAD BILATERAL EARS AND LOWER EXTREMITIES BY PLACING PILLOWS UNLESS OTHERWISE CONTRAINDICATED -PRESSURE REDISTRIBUTION SURFACE THERAPY -TURN AND REPOSITION Q2H, OFFLOAD SACRALCOCCYX AND BUTTOCKS BY TURNING RIGHT AND LEFT -KEEP SKIN DRY AND CLEAN AT ALL TIMES, PLEASE CHECK Q2H AND PRN FOR MEDICAL DEVICES TUBING POSITIONING -CONTINUE TO FOLLOW RD RECOMMENDATIONS
--- NOTE | 2018-02-12 11:09 | NUR ---
SPOKE WITH DR HART AND INFORMED HIM ABOUT THE ABSCESS PALPATED ON THE PATIENT'S RIGHT FLANK. DR SAUCEDO SEE THE PATIENT
--- NOTE | 2018-02-12 11:42 | NUR ---
PT ASLEEP AT THIS TIME NO DISTRESS NOTED. WILL CONTINUE TO MONITOR.
[2018-02-12] MEDS: FLUCONAZOLE 100 MG TAB PO SCH (12:20)
--- NOTE | 2018-02-12 13:00 | NUR ---
PATIENT EVALUATED BY DR HART
[2018-02-12] MEDS: SKINTEGRITY HYDROGEL TP SCH (13:17)
--- NOTE | 2018-02-12 16:45 | NUR ---
PATIENT ASLEEP IN BED. NO S/S OF DISTRESS NOTED
--- NOTE | 2018-02-12 17:14 | NUR ---
PT REMAINS ON DOCUMENTED VENT SETTINGS. PT IS NOT IN ANY DISTRESS AT THIS TIME. VENT ALARMS REMAIN ON AND FUNCTIONING. TRACH REMAINS SECURE WITH A PATENT AIRWAY. Addendum: 02/12/18 at 1717 by Junito Joseph RT PT SUCTIONED OBTAINED SMALL AMOUNT OF THICK PALE YELLOW SECRETIONS.
--- NOTE | 2018-02-12 19:15 | NUR ---
RECEIVED BEDSIDE REPORT FROM DAY SHIFT RN MAL. 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 PATIENT HAS UTI AND PNEUMONIA. TRACT TO VENTILATOR, VENT SETTINGS AT: FIO2 24, VT 650, RR 18, PEEP 3, FLOW 55, P MAX 45. LUNG SOUNDS CLEAR BILATERALLY, TRAC DRESSING IS CLEAN AND INTACT, SPUTUM COLLECTION CONTAINER IS AT 1100 ML, LIGHT GREEN, FOAMY SPUTUM. NOTED DRESSING ON UPPER CHEST, LAST CHANGED 02/12. LEFT CENTRAL LINE, DOUBLE LUMEN, DRESSING INTACT, INFUSING NS AT 10 ML/HR. G-TUBE DRESSING INTACT, 90 ML RESIDUES ASPIRATED AND RETURNED. FORMULA FEEDING AT 65 ML/HR. RECTAL TUBE IN PLACE, DRAINING DARK BROWN, LIQUID STOOL, PATIENT HAS SACRAL WOUND, ON WOUND BED, UNDERWOOD CATH IN PLACE DRAINING YELLOW URINE AT 150 ML. UPDATED BOARD, CALL LIGHT WITHIN REACH. WILL CONTINUE TO MONITOR.
--- NOTE | 2018-02-12 19:15 | NUR ---
PATIENT REPORT GIVEN TO CERAMICS ENGINEER NURSE. PATIENT ENDORSED IN STABLE CONDITION
--- NOTE | 2018-02-12 19:32 | NUR ---
Received pt stable on vent support at documented settings, suctioned scant amounts of thick white secretions, hhn tx given, tolerated well, no resp distress or SOB noted at this time, Portex 8 trach secured/patent/midline, alarms set and audible, ambu bag at bedside, vent plugged into red outlet, pulse ox on, will cont to monitor.
--- NOTE | 2018-02-12 20:00 | NUR ---
PHONE CALL FROM FAMILY MEMBER, SPOKE WITH BROTHER SUZY TO GIVE UPDATE, QUESTIONS ANSWERED.
--- NOTE | 2018-02-12 20:30 | NUR ---
DR MARTINEZ AT BEDSIDE, NOTIFIED OF GREEN DISCHARGE FROM [place]ERWOOD. NO NEW ORDERS AT THIS TIME. Addendum: 02/12/18 at 2216 by Belle Waite RN AWARE OF FEVER 100.7 F.
--- NOTE | 2018-02-12 20:31 | NUR ---
PT TEMP 100.7 F. MEDICATED WITH ACETAMINOPHEN ACCORDING TO MD ORDER. WILL CONTINUE TO MONITOR.
--- NOTE | 2018-02-12 22:11 | NUR ---
SUCTIONED PATIENT X1 FOR HIGH PRESSURE ALARM. HR 120 RR 20 O2SAT 100%. WILL CONTINUE TO MONITOR.
[2018-02-13] VITALS: BP 111/72
--- NOTE | 2018-02-13 | NUR ---
FEVER RESOLVED 99.0 F. WILL CONTINUE TO MONITOR.
[2018-02-13] MEDS: IPRATROPIUM 0.02% 0.5 MG/2.5 ML NEBU IH SCH ×4 (00:58→19:29)
[2018-02-13] MEDS: ALBUTEROL 0.083% 2.5 MG/3 ML NEBU IH SCH ×4 (00:58→19:29)
[2018-02-13] MEDS: Z-GUARD PASTE TP SCH ×2 (01:02→13:49)
[2018-02-13] MEDS: HYDRAGUARD CREAM TP SCH ×2 (01:02→13:49)
--- NOTE | 2018-02-13 01:04 | NUR ---
SUCTIONED PATIENT X1 THROUGH TRAC AND X1 THROUGH MOUTH DUE TO HIGH PRESSURE ALARM. R/T AT BEDSIDE WILL CONTINUE TO MONITOR.
--- NOTE | 2018-02-13 02:30 | NUR ---
PATIENT REFUSED TO WEAR TELE MONITOR.
--- NOTE | 2018-02-13 03:50 | NUR ---
PATIENT REFUSES TO WEAR TELE MONITOR, CHARGE NURSE AWARE. Addendum: 02/13/18 at 0351 by Belle Waite RN WRONG PT
[2018-02-13 04:00] VITALS: BP 110/70
[2018-02-13] MEDS: VALPROIC ACID 250 MG/5 ML UDC GT SCH ×3 (05:57→21:13)
[2018-02-13] MEDS: MEROPENEM 1,000 MG in NACL 0.9% 100 ML IV SCH ×2 (05:58→12:49)
[2018-02-13] MEDS: METOCLOPRAMIDE 10 MG/2 ML INJ VIAL IVP SCH ×3 (05:58→21:12)
[2018-02-13] MEDS: levETIRAcetam 100 MG/ML ORASYR GT SCH ×3 (05:58→21:13)
--- NOTE | 2018-02-13 06:18 | NUR ---
PATIENT REFUSED BLOOD GLUCOSE CHECK Addendum: 02/13/18 at 0632 by Belle Waite RN WRONG PT
--- NOTE | 2018-02-13 06:33 | NUR ---
DUE MEDICATIONS GIVEN PT TOLERATED WELL
[2018-02-13] MEDS: BLOOD GLUCOSE MONITORING 1 DEV DEV FS SCH ×4 (06:34→21:13)
[2018-02-13] MEDS: INSULIN LISPRO SLIDING SCALE 100 UNITS/ML VIAL SUBQ PRN ×3 (06:52→17:54)
[2018-02-13 07:06] LABS: MEAN CORPUSCULAR HEMOGLOBIN 30 pg (27-31); MEAN CORPUSCULAR HGB CONC 32 g/dL (33-37); MEAN CORPUSCULAR VOLUME 93.8 fL (80-94); PLATELET COUNT (AUTO) 194 K/uL (140-450); RED BLOOD CELL COUNT(AUTO) 2.35 MIL/uL (4.20-6.10); RED CELL DISTRIBUTION WIDTH 22.5 % (11.6-13.7); WHITE BLOOD COUNT (AUTO) 25.9 K/uL (4.8-10.8)
--- NOTE | 2018-02-13 07:20 | NUR ---
RECEIVED BEDSIDE REPORT FROM PM SHIFT NURSE. PT IN BED, TRACH TO VENT IN PLACE, RT AT BEDSIDE PROVIDING CARE. RESPIRATIONS EVEN & UNLABORED, HOB ELEVATED TO 30DEG. LEFT UPPER ARM PICC LINE IN PLACE, ASYMPTOMATIC. CONTACT ISOLATION PRECAUTIONS IN PLACE.
[2018-02-13 07:35] LABS: ANION GAP 12.9 (8-16); CARBON DIOXIDE 19.2 mmol/L (21-32); CREATININE 1.1 mg/dL (0.7-1.3); POTASSIUM 4.1 mmol/L (3.5-5.1)
--- NOTE | 2018-02-13 07:45 | NUR ---
DR HART PAGED RE: ADONIS H&H.
[2018-02-13 08:00] VITALS: BP 98/63
--- NOTE | 2018-02-13 08:00 | NUR ---
PAGED DR CONTRERAS, HAND BRAILLE TRANSCRIBER FOR DR. HART RE: LAB RESULTS.
[2018-02-13 08:13] LABS: BASOPHILS % (MANUAL) 0 % (0-2); EOSINOPHILS % (MANUAL) 1 % (0-4); LYMPHOCYTES % (MANUAL) 6 % (20-46); METAMYELOCYTES % 1 % (0-0); MONOCYTES % (MANUAL) 5 % (5-12); MYELOCYTES % 4 % (0-0)
[2018-02-13] MEDS: FERROUS SULFATE 300 MG/5 ML UDC GT SCH ×2 (08:57→21:13)
[2018-02-13] MEDS: PANTOPRAZOLE 40 MG INJ VIAL IVP SCH (08:58)
[2018-02-13] MEDS: CALCITRIOL 0.25 MCG CAPLF PO SCH (08:59)
[2018-02-13] MEDS: LACTOBACILLUS RHAMNOSUS GG 1 EACH CAP PO SCH (08:59)
[2018-02-13] MEDS: ENOXAPARIN 40 MG/0.4 ML SYR SUBQ SCH (09:05)
[2018-02-13] MEDS: ACETAMINOPHEN 650 MG/20.3 ML UDC GT PRN (09:09)
--- NOTE | 2018-02-13 09:09 | NUR ---
ACETAMINOPHEN ADMINISTERED FOR TEMP 101F. COOL WEST WASHCLOTH APPLIED TO FOREHEAD, REMOVED BLANKET, ROOM KEPT COOL. GT FEEDING RATE INCREASED TO 75ML/HR D/T LOW RESIDUAL OF 25ML. PT ASLEEP, RESPIRATIONS EVEN & UNLABORED, RESPONSIVE TO VOICE & TOUCH. CALL LIGHT WITHIN REACH.
--- NOTE | 2018-02-13 10:00 | NUR ---
CURRENT AXILLARY TEMP IS 99.8F. COOLING MEASURES IN PLACE. PT AWAKE, UNABLE TO MAKE NEEDS KNOWN OR FOLLOW COMMANDS. TRACH TO VENT IN PLACE, RESPIRATIONS EVEN & UNLABORED.
--- NOTE | 2018-02-13 10:40 | NUR ---
PT'S RECTAL TUBE LEAKING FROM ANAL AREA. PERICARE PROVIDED. WOUND ASSESSMENT & CARE PROVIDED AT THIS TIME FOR SACRAL & BUTTOCK ULCERS. PT REPOSITIONED. UNDERWOOD CATH IN PLACE & DRAINING WELL INTO COLLECTION BAG. PT PARRISH CARE WELL. RESPIRATIONS EVEN & UNLABORED. TRACH TO VENT IN PLACE. LEFT UPPER ARM PICC LINE IN PLACE & ASYMPTOMATIC.
[2018-02-13] MEDS: VANCOMYCIN HCL 750 MG in NACL 0.9% 250 ML IV SCH (10:45)
[2018-02-13] MEDS: NACL 0.9% 1,000 ML IV SCH (10:45)
--- NOTE | 2018-02-13 11:58 | NUR ---
VENT CHECK COMPLETED PT SUCTIONED OBTAINED SMALL AMOUNT OF THICK WHITE SECRETIONS,AIRWAY IS PATENT AND TRACH IS SECURE. WILL CONTINUE TO MONITOR.
[2018-02-13 12:00] VITALS: BP 104/63
[2018-02-13] MEDS: FLUCONAZOLE 100 MG TAB PO SCH (12:48)
--- NOTE | 2018-02-13 12:52 | NUR ---
02/13/18 RD FOLLOW UP COMPLETED PLEASE REFER TO NUTRITION PROGRESS NOTE UNDER CARE ACTIVITY FOR ESTIMATED NUTRITION NEEDS. RD RECOMMENDATIONS: 1. CONTINUE GLUCERNA 1.2 AT 75 ML/HR VIA G TUBE WITH 250 ML OF FREE WATER FLUSH Q8H. -THIS WILL PROVIDE 1800 ML OF VOLUME, 2160 KCAL, 108 GM OF PROTEIN, WHICH MEETS 108% OF ESTIMATED KCAL AND 100% OF ESTIMATED PROTEIN NEEDS 2. RECOMMEND ORDERING 500 MG OF VITAMIN C BID AND 220 MG OF ZINC SULFATE DAILY TO PROMOTE WOULD HEALING. -NOTE PT WITH MULTIPLE OPEN WOUNDS AND SKIN EROSIONS PER WOUND CARE NOTE (REFER TO WOUND CARE NOTE ON 02/12/18). 3. RD TO FOLLOW-UP 2-3 DAYS, HIGH RISK CHACORTA CERDA, RD
[2018-02-13] MEDS: SKINTEGRITY HYDROGEL TP SCH (13:49)
--- NOTE | 2018-02-13 13:54 | NUR ---
PT SUCTIONED OBTAINED SMALL AMOUNT OF THICK WHITE SECRETIONS, AIRWAY REMAINS PATENT AND TRACH REMAINS SECURE. PT NOT IN ANY DISTRESS AT THIS TIME. WILL CONTINUE TO MONITOR.
[2018-02-13 15:14] LABS: HEMATOCRIT 21.3 % (36-52)
[2018-02-13 15:23] LABS: HEMOGLOBIN 6.7 g/dL (12.0-18.0)
--- NOTE | 2018-02-13 15:30 | NUR ---
DR CONTRERAS ARRIVED AT BEDSIDE TO SEE PT. NOTIFIED OF LAB RESULTS & ELEVATED TEMPS. PHYSICIAN TO INPUT ORDERS.
[2018-02-13 16:00] VITALS: BP 122/60
--- NOTE | 2018-02-13 16:00 | NUR ---
DR MARTINEZ CAME IN TO ASSESS PT.
--- NOTE | 2018-02-13 17:35 | NUR ---
PT REMAINS ON DOCUMENTED VENT SETTINGS. TRACH REMAINS SECURE WITH A PATENT AIRWAY. VENT ALARMS REMAIN ON AND FUNCTIONING. PT IS NOT IN ANY DISTRESS AT THIS TIME.
--- NOTE | 2018-02-13 18:08 | NUR ---
LEFT PICC LINE PATENT & ASYMPTOMATIC, INFUSING NS @ 25ML/HR VIA Y-SITE BLOOD TUBING. OBTAINED 1UNIT PRBC FROM BLOOD BANK, VERIFIED WITH MEDIA TECHNICIAN.
--- NOTE | 2018-02-13 18:25 | NUR ---
INITIATED PRBC INFUSION. PT ASLEEP, RESPIRATIONS EVEN & UNLABORED. LEFT UPPER ARM PICC LINE INTACT & PATENT. WILL REMAIN AT BEDSIDE FOR CLOSE MONITORING OF ADVERSE REACTIONS.
--- NOTE | 2018-02-13 19:15 | NUR ---
BEDSIDE REPORT GIVEN TO PM SHIFT NURSE. PT IN BED, ASLEEP, RESPIRATIONS EVEN & UNLABORED. BLOOD TRANSFUSING INTO LEFT UPPER ARM PICC LINE. NO SIGNS OF ADVERSE REACTIONS.
--- NOTE | 2018-02-13 19:16 | NUR ---
RECEIVED REPORT FROM DAY SHIFT RN, FOR CONTINUITY OF CARE. PT IS APHASIC ON TRACH TO VENT WITH FOLLOWING SETTINGS: FIO2 24%, VT 650, RATE 18, FLOW 55, AND PEEP 3. PT IS UNABLE TO MAKE NEEDS KNOWN, UNABLE TO FOLLOW COMMANDS. PT BREATHS EQUAL AND UNLABORED. PT HAS MULTIPLE SKIN PROBLEMS, SEE WOUND ASSESSMENT. PT IS BEDBOUND. DOUBLE LUMEN PICC LINE TO LEFT UPPER ARM, ASYMPTOMATIC AND INTACT WITH GOOD BLOOD RETURN FROM BOTH PORTS. PT CURRENTLY RECEIVING BLOOD TRANSFUSION. VITAL SIGNS WITHIN NORMAL LIMITS. PT STABLE, NO SIGNS OF DISTRESS NOTED AT THIS TIME. BED IN LOWEST POSITION, BED ALARM ON. CALL LIGHT WITHIN REACH, WILL CONTINUE TO MONITOR.
[2018-02-13 20:00] VITALS: BP 112/69
[2018-02-13] MEDS: CEFEPIME 2,000 MG in DEXTROSE 5% 100 ML IV SCH (21:14)
--- NOTE | 2018-02-13 21:25 | NUR ---
ADMINISTERED SCHEDULED MEDICATIONS, PT TOLERATED WELL.
[2018-02-13 23:22] LABS: HEMATOCRIT 22.2 % (36-52); HEMOGLOBIN 7.1 g/dL (12.0-18.0)
[2018-02-14] VITALS: BP 110/73
--- NOTE | 2018-02-14 | NUR ---
VITAL SIGNS WITHIN NORMAL LIMITS. PT STABLE, NO SIGNS OF DISTRESS NOTED AT THIS TIME. BED IN LOWEST POSITION, BED ALARM ON. CALL LIGHT WITHIN REACH, WILL CONTINUE TO MONITOR.
[2018-02-14] MEDS: ALBUTEROL 0.083% 2.5 MG/3 ML NEBU IH SCH ×4 (01:18→19:48)
[2018-02-14] MEDS: IPRATROPIUM 0.02% 0.5 MG/2.5 ML NEBU IH SCH ×4 (01:18→19:48)
[2018-02-14] MEDS: Z-GUARD PASTE TP SCH ×2 (01:24→13:22)
[2018-02-14] MEDS: HYDRAGUARD CREAM TP SCH ×2 (01:24→13:23)
[2018-02-14 04:00] VITALS: BP 125/69
[2018-02-14] MEDS: METOCLOPRAMIDE 10 MG/2 ML INJ VIAL IVP SCH ×3 (05:54→20:35)
[2018-02-14] MEDS: VALPROIC ACID 250 MG/5 ML UDC GT SCH ×3 (05:56→20:31)
[2018-02-14] MEDS: levETIRAcetam 100 MG/ML ORASYR GT SCH ×3 (05:56→20:33)
[2018-02-14] MEDS: INSULIN LISPRO SLIDING SCALE 100 UNITS/ML VIAL SUBQ PRN ×3 (06:18→16:58)
[2018-02-14] MEDS: BLOOD GLUCOSE MONITORING 1 DEV DEV FS SCH ×4 (06:19→20:31)
[2018-02-14 06:31] LABS: HEMATOCRIT 22.3 % (36-52); MEAN CORPUSCULAR HEMOGLOBIN 30 pg (27-31); MEAN CORPUSCULAR HGB CONC 32 g/dL (33-37); MEAN CORPUSCULAR VOLUME 93.7 fL (80-94); PLATELET COUNT (AUTO) 213 K/uL (140-450); RED BLOOD CELL COUNT(AUTO) 2.38 MIL/uL (4.20-6.10); RED CELL DISTRIBUTION WIDTH 20.5 % (11.6-13.7); WHITE BLOOD COUNT (AUTO) 21.5 K/uL (4.8-10.8)
[2018-02-14 06:58] LABS: ANION GAP 11.1 (8-16); CARBON DIOXIDE 21.7 mmol/L (21-32); POTASSIUM 3.8 mmol/L (3.5-5.1)
--- NOTE | 2018-02-14 07:08 | NUR ---
RECEIVED ON A GE CARESCAPE R860 PLUGGED INTO RED OUTLET TOLERATING WELL WITHOUT ADVERSE REACTIONS NOTED TO A PORTEX DCT #8 AIRWAY SECURED WITH A AMOS TRACH TIE CUFF PRESSURE CHECKED NOTED VCÍTOR BASURTO-Yani CONTINUOS PULSE OXIMETER AT BEDSIDE ON AN FUNCTIONING WELL LOW SATURATION ALARM SET AT 92% AMBU BAG AT [facility] AWAKE STABLE GOOD CHEST RISE DEEP TRACHEAL SUCTION FOR MODERATE THICK PALE YELLOW SECRETIONS AIRWAY PATENT
--- NOTE | 2018-02-14 07:10 | NUR ---
RECEIVED BEDSIDE REPORT FROM PM SHIFT NURSE. PT ASLEEP IN BED, RESPIRATIONS EVEN & UNLABORED, FLACC 0. TRACH TO VENT IN PLACE. CALL LIGHT WITHIN REACH.
[2018-02-14 07:41] LABS: BASOPHILS % (MANUAL) 0 % (0-2); EOSINOPHILS % (MANUAL) 2 % (0-4); LYMPHOCYTES % (MANUAL) 6 % (20-46); METAMYELOCYTES % 2 % (0-0); MONOCYTES % (MANUAL) 3 % (5-12); MYELOCYTES % 4 % (0-0)
[2018-02-14 08:00] VITALS: BP 115/63
[2018-02-14] MEDS: CEFEPIME 2,000 MG in DEXTROSE 5% 100 ML IV SCH ×2 (08:36→20:36)
[2018-02-14] MEDS: FERROUS SULFATE 300 MG/5 ML UDC GT SCH ×2 (08:36→20:33)
[2018-02-14] MEDS: CALCITRIOL 0.25 MCG CAPLF PO SCH (08:37)
[2018-02-14] MEDS: PANTOPRAZOLE 40 MG INJ VIAL IVP SCH (08:37)
[2018-02-14] MEDS: ACETAMINOPHEN 650 MG/20.3 ML UDC GT PRN ×3 (08:38→23:22)
[2018-02-14] MEDS: LACTOBACILLUS RHAMNOSUS GG 1 EACH CAP PO SCH (08:38)
--- NOTE | 2018-02-14 08:38 | NUR ---
ACETAMINOPEN ADMINISTERED FOR TEMP 101.0F. COOL WET WASHCLOTH APPLIED TO FOREHEAD, ROOM KEPT COOL, SHEET COVER REMOVED.
--- NOTE | 2018-02-14 09:00 | NUR ---
OBTAINED 200ML GT RESIDUAL AT THIS TIME. GT FEEDING HELD, HOB MAINTAINED ELEVATED AT 30DEG. BOWEL SOUNDS HYPOACTIVE ON ALL QUADS, ABD ROUND & SOFT, NON-TENDER. RECTAL TUBE IN PLACE WITH MIN AMT WATERY BROWN STOOL. ALL DUE MEDS GIVEN. TRACH TO VENT IN PLACE.
[2018-02-14] MEDS: ENOXAPARIN 40 MG/0.4 ML SYR SUBQ SCH (09:16)
--- NOTE | 2018-02-14 09:38 | NUR ---
REASSESSED TEMP, OBTAINED 100.2F. COOLING MEASURES KEPT IN PLACE. PT AWAKE, APHASIC, UNABLE TO FOLLOW COMMANDS.
--- NOTE | 2018-02-14 09:55 | NUR ---
STABLE NO APPARENT PULMONARY DISTRESS NOTED DEEP TRACHEAL SUCTION FOR SMALL THICK YELLOW SECRETIONS
--- NOTE | 2018-02-14 10:10 | NUR ---
REASSESSED GT RESIDUAL & OBTAINED 50ML. RE-INTIATED GT FEEDING GLUCERNA 1.2 @ 75ML/HR. PT AWAKE, FOLLOWS NURSE WITH HIS EYES, UNABLE TO FOLLOW SIMPLE COMMANDS. RESPIRATIONS EVEN & UNLABORED.
[2018-02-14] MEDS: NACL 0.9% 1,000 ML IV SCH (10:18)
--- NOTE | 2018-02-14 10:38 | NUR ---
TEMPORAL TEMP IS 100.0F AT THIS TIME. PT ASLEEP, RESPIRATIONS EVEN & UNLABORED, TRACH TO VENT IN PLACE. AM CARE PROVIDED VIA 3-PERSON TOTAL ASSIST. PT REPOSITIONED. RECTAL TUBE & UNDERWOOD CATH IN PLACE.
[2018-02-14] MEDS: VANCOMYCIN HCL 750 MG in NACL 0.9% 250 ML IV SCH (10:40)
--- NOTE | 2018-02-14 11:14 | NUR ---
RESTING COMFORTABLY NO DISTRESS NOTED GOOD CHEST RISE AND AERATION THROUGHOUT BILATERAL LUNG REDDY AIRWAY PATENT
[2018-02-14 12:00] VITALS: BP 110/62
[2018-02-14] MEDS: FLUCONAZOLE 100 MG TAB PO SCH (13:22)
[2018-02-14] MEDS: SKINTEGRITY HYDROGEL TP SCH (13:23)
--- NOTE | 2018-02-14 13:42 | NUR ---
STABLE NO SOB NOTED GOOD CHEST RISE
--- NOTE | 2018-02-14 14:11 | NUR ---
OBTAINED 1UNIT PRBC FROM BLOOD BANK.
--- NOTE | 2018-02-14 14:25 | NUR ---
INITIATED BLOOD TRANSFUSION AT THIS TIME. PT ASLEEP, RESPIRATIONS EVEN & UNLABORED, TRACH TO VENT. WILL REMAIN AT BEDSIDE FOR CLOSE MONITORING OF ADVERSE REACTIONS.
[2018-02-14 16:00] VITALS: BP 104/60
--- NOTE | 2018-02-14 16:00 | NUR ---
RESTING WELL NO EVIDENCE OF RESPIRATORY DISTRESS NOTED GOOD CHEST RISE AND AERATION THROUGHOUT LUNG REDDY
--- NOTE | 2018-02-14 16:40 | NUR ---
BLOOD TRANSFUSION COMPLETED AT THIS TIME. PT LYING IN BED, AWAKE, NO SIGNS OF BLOOD TRANSFUSION REACTION, RESPIRATIONS EVEN & UNLABORED. LEFT ARM PICC INTACT, NO S/SX OF COMPLICATIONS, FLUSHED WITH 10ML NS & REINITIATED NS INFUSION @ 10ML/HR TKVO. TRACH TO VENT IN PLACE. CALL LIGHT WITHIN REACH.
--- NOTE | 2018-02-14 17:03 | NUR ---
NO APPARENT DISTRESS NOTED AT THIS TIME DEEP TRACHEAL SUCTION FOR SMALL THICK YELLOW SECRETIONS AIRWAY PATENT
--- NOTE | 2018-02-14 19:50 | NUR ---
SET RATE IS 18, NOT 19. ENTERED WRONG NUMBER IN VENTILATOR FLOW SHEET AND COULD NOT EDIT.
--- NOTE | 2018-02-14 19:50 | NUR ---
PATIENT RESTING COMFORTABLY. FAMILY AT BEDSIDE. VENT PLUGGED INTO RED OUTLET. ALARMS ON AND AUDIBLE. AMBU BAG AT BEDSIDE. TRACH CLEAN AND PATENT. VENT AT ORDERED SETTINGS: AC, 18, 650, +3, 24%. VITALS STABLE: 100%, PULSE 101, RATE 19. SXNED X3 FOR MODERATE AMOUNT OF THINK CLEAR SECRETIONS. TREATMENT GIVEN WITH NO ADVERSE EFFECTS. WILL CONTINUE TO MONITOR.
--- NOTE | 2018-02-14 19:51 | NUR ---
RECEIVED REPORT FROM DAY SHIFT RN, FOR CONTINUITY OF CARE. PT IS APHASIC ON TRACH TO VENT WITH FOLLOWING SETTINGS: FIO2 24%, VT 650, RATE 18, FLOW 55, AND PEEP 3. PT IS UNABLE TO MAKE NEEDS KNOWN, UNABLE TO FOLLOW COMMANDS. PT BREATHS EQUAL AND UNLABORED. PT HAS MULTIPLE SKIN PROBLEMS, SEE WOUND ASSESSMENT. PT IS BEDBOUND. DOUBLE LUMEN PICC LINE TO LEFT UPPER ARM, ASYMPTOMATIC AND INTACT WITH GOOD BLOOD RETURN FROM BOTH PORTS. VITAL SIGNS WITHIN NORMAL LIMITS. PT STABLE, NO SIGNS OF DISTRESS NOTED AT THIS TIME. BED IN LOWEST POSITION, BED ALARM ON. CALL LIGHT WITHIN REACH, WILL CONTINUE TO MONITOR.
[2018-02-14 20:00] VITALS: BP 132/75
--- NOTE | 2018-02-14 20:43 | NUR ---
ADMINISTERED SCHEDULED MEDICATIONS, PT TOLERATED WELL.
--- NOTE | 2018-02-14 23:22 | NUR ---
PT HAS 100.5 FEVER. ADMINISTERED TYLENOL ORDERED, PT TOLERATED WELL. Addendum: 02/15/18 at 0339 by Iza Gomez RN DISREGARD
--- NOTE | 2018-02-14 23:25 | NUR ---
PT HAS 100.5 FEVER. ADMINISTERED TYLENOL ORDERED, PT TOLERATED WELL. INITIATED COOLING MEASURES. REMOVED BLANKET AND PLACED ICE PACKS ON BOTH SIDES OF PT. WILL REASSESS.
[2018-02-15] VITALS (9 sets, daily range): BP systolic 122–148; BP diastolic 67–83
--- NOTE | 2018-02-15 00:55 | NUR ---
TEMPERATURE IS NOW 99.8. COOLING MEASURES STILL IN PLACE. WILL CONTINUE TO MONITOR.
[2018-02-15] MEDS: Z-GUARD PASTE TP SCH ×2 (01:00→12:40)
[2018-02-15] MEDS: HYDRAGUARD CREAM TP SCH ×2 (01:00→12:40)
[2018-02-15] MEDS: IPRATROPIUM 0.02% 0.5 MG/2.5 ML NEBU IH SCH ×4 (01:29→19:07)
[2018-02-15] MEDS: ALBUTEROL 0.083% 2.5 MG/3 ML NEBU IH SCH ×4 (01:29→19:07)
[2018-02-15] MEDS: ACETAMINOPHEN 650 MG/20.3 ML UDC GT PRN (03:13)
--- NOTE | 2018-02-15 03:13 | NUR ---
PT HAS 102.7 FEVER. ADMINISTERED TYLENOL ORDERED AGAIN, AND APPLIED MORE ICE PACKS. WILL CONTINUE TO MONITOR.
--- NOTE | 2018-02-15 03:45 | NUR ---
TEMPERATURE NOW 99.9. COOLING MEASURES STILL IN PLACE. Addendum: 02/15/18 at 0351 by Iza Gomez RN WRONG TEMPERATURE. TEMPERATURE IS ACTUALLY 101.9 AT THIS TIME.
[2018-02-15] MEDS ORDERED: IBUPROFEN 400 MG TAB GT SCH (04:40)
--- NOTE | 2018-02-15 04:40 | NUR ---
PT TEMPERATURE IS 102.[address] PUENTE ABOUT PT HAVING FEVER EVEN AFTER TYLENOL WAS ADMINISTERED. SAID TO ORDER 400MG IBUPROFEN.
[2018-02-15] MEDS: VALPROIC ACID 250 MG/5 ML UDC GT SCH ×3 (05:40→20:11)
[2018-02-15] MEDS: levETIRAcetam 100 MG/ML ORASYR GT SCH ×3 (05:40→20:11)
[2018-02-15] MEDS ORDERED: IBUPROFEN 400 MG TAB ONE (05:56)
[2018-02-15] MEDS: METOCLOPRAMIDE 10 MG/2 ML INJ VIAL IVP SCH ×3 (06:02→20:12)
[2018-02-15] MEDS: INSULIN LISPRO SLIDING SCALE 100 UNITS/ML VIAL SUBQ PRN ×4 (06:41→20:29)
[2018-02-15] MEDS: BLOOD GLUCOSE MONITORING 1 DEV DEV FS SCH ×4 (06:52→20:28)
--- NOTE | 2018-02-15 07:24 | NUR ---
ENDORSED PT TO DAY SHIFT RN FOR CONTINUITY OF CARE. PT IN STABLE CONDITION.
--- NOTE | 2018-02-15 07:25 | NUR ---
RECEIVED ON A [employer] Access CARESCAPE R860 VENTILATOR PLUGGED INTO RED OUTLET TOLERATING WELL WITHOUT INCIDENT TO A PORTEX DCT #8 AIRWAY SECURED WITH A AMOS TRACH TIE CUFF PRESSURE CHECKED NOTED RADICAL-7 CONTINUOS PULSE OXIMETER AT BEDSIDE ON AND FUNCTIONING WELL LOW SATURATION ALARM SET AT 92% AMBU BAG AT HOB LOC QUIET BREATH SOUNDS RHONCHI BILATERAL WITH GOOD CHEST RISE DEEP TRACHEAL SUCTION FOR MODERATE THICK YELLOW SECRETIONS AIRWAY PATENT
--- NOTE | 2018-02-15 07:25 | NUR ---
RECEIVED SBAR REPORT FROM NIGHT RN AT PT BEDSIDE. PATIENT IS APHASIC. EYES OPENING TO NAME, DOES NOT FOLLOW COMMANDS, QUAD. PATIENT UNABLE TO MAKE NEEDS KNOWN. CHRONIC TRACH TO VENT, NO ACUTE RESPIRATORY DISTRESS NOTED. PICC LINE NOTED ABRAN, PATENT AND INTACT. UNDERWOOD CATH IN PLACE TO GRAVITY IN MODERATE AMOUNT, PREM IN COLOR. G-TUBE FEEDING, GLUCERNA @ GOAL 75ML/HR, MINIMAL RESIDUAL NOTED. RECTAL TUBE IN PLACE TO GRAVITY, LOOSE GREENISH BROWN STOOL NOTED. OFFLOADED PRESSURE AREAS. SKIN KEPT CLEAN AND DRY.
--- NOTE | 2018-02-15 08:10 | NUR ---
PATIENT ASSISTED IN CHANGING OF POSITIONS. OFFLOADED PRESSURE AREAS. RECTAL TUBE FLUSHED FOR PATENCY. NO ACUTE DISTRESS.
--- NOTE | 2018-02-15 09:10 | NUR ---
RESTING COMFORTABLY NO EVIDENCE OF RESPIRATORY DISTRESS NOTED DEEP TRACHEAL SUCTION FOR MODERATE THIN YELLOW SECRETIONS AIRWAY PATENT
[2018-02-15] MEDS: FERROUS SULFATE 300 MG/5 ML UDC GT SCH ×2 (09:54→20:12)
[2018-02-15] MEDS: PANTOPRAZOLE 40 MG INJ VIAL IVP SCH (09:56)
[2018-02-15] MEDS: CEFEPIME 2,000 MG in DEXTROSE 5% 100 ML IV SCH (09:56)
[2018-02-15] MEDS: LACTOBACILLUS RHAMNOSUS GG 1 EACH CAP PO SCH (09:56)
[2018-02-15] MEDS: VANCOMYCIN HCL 750 MG in NACL 0.9% 250 ML IV SCH (09:57)
[2018-02-15] MEDS: CALCITRIOL 0.25 MCG CAPLF PO SCH (09:57)
[2018-02-15] MEDS: ENOXAPARIN 40 MG/0.4 ML SYR SUBQ SCH (09:58)
[2018-02-15] MEDS: NACL 0.9% 1,000 ML IV SCH (10:18)
--- NOTE | 2018-02-15 11:26 | NUR ---
PATIENT OFFLOADED PRESSURE AREAS. SKIN CLEAN AND DRY, WOUND DRESSINGS CHANGED.
--- NOTE | 2018-02-15 11:58 | NUR ---
NO APPARENT DISTRESS NOTED GOOD CHEST RISE DEEP TRACHEAL SUCTION FOR SMALL THIN PALE YELLOW SECRETIONS AIRWAY PATENT
[2018-02-15] MEDS: SKINTEGRITY HYDROGEL TP SCH (12:40)
[2018-02-15] MEDS: FLUCONAZOLE 100 MG TAB PO SCH (12:40)
[2018-02-15] MEDS ORDERED: PIPERACILLIN/TAZOBACTAM 4.5 GM in DEXTROSE 5% 100 ML IV SCH (12:45)
--- NOTE | 2018-02-15 13:32 | NUR ---
Concurrent review faxed to [facility].
--- NOTE | 2018-02-15 13:49 | NUR ---
BREATHING TX AND VENT CHECK COMPLETED. VENT ALARMS REMAIN ON AND FUNCTIONING. TRACH REMAINS SECURE WITH A PATENT AIRWAY. PT NOT IN ANY DISTRESS AT THIS TIME.
--- NOTE | 2018-02-15 14:20 | NUR ---
PATIENT ASSISTED IN CHANGING OF POSITIONS Q2H DURING SHIFT. SKIN KEPT CLEAN AND DRY. DRESSINGS CLEAN DRY AND INTACT. FLEXISEAL PATENT. IV SITE PATENT. NO ACUTE DISTRESS NOTED.
--- NOTE | 2018-02-15 16:04 | NUR ---
NO INDICATION OF PULMONARY DISTRESS NOTED AT THIS TIME GOOD CHEST RISE
[2018-02-15] MEDS: SKINTEGRITY HYDROGEL TP PRN (17:28)
[2018-02-15] MEDS: Z-GUARD PASTE TP PRN (17:28)
--- NOTE | 2018-02-15 17:37 | NUR ---
ADEQUATE CHEST RISE DEEP TRACHEAL SUCTION FOR SMALL THIN PALE YELLOW SECRETIONS AIRWAY PATENT
[2018-02-15] MEDS: PIPERACILLIN/TAZOBACTAM 4.5 GM in DEXTROSE 5% 100 ML IV SCH ×2 (17:42→23:13)
--- NOTE | 2018-02-15 19:15 | NUR ---
SBAR REPORT GIVEN TO NIGHT RN AT PT BEDSIDE. RT AT BEDSIDE, NO ACUTE DISTRESS NOTED.
--- NOTE | 2018-02-15 19:15 | NUR ---
RECEIVED BEDSIDE REPORT FROM DAY SHIFT RN OLIMPIA. 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 TRACT TO VENTILATOR, VENT SETTINGS AT: FIO2 24, VT 650, RR 18, PEEP 3, FLOW 60, P MAX 55. LUNG SOUNDS COARSE CRACKLES BILATERALLY, TRAC DRESSING IS CLEAN AND INTACT, SPUTUM COLLECTION CONTAINER IS AT 500 ML, LIGHT GREEN, FOAMY SPUTUM. NOTED DRESSING ON UPPER CHEST INTACT. LEFT CENTRAL LINE, DOUBLE LUMEN, DRESSING INTACT, INFUSING NS AT 10 CC/HR. G-TUBE DRESSING CHANGED ON 02/15, 50 ML RESIDUES ASPIRATED AND RETURNED, FEEDING AT 75 ML/HR. RECTAL TUBE IN PLACE, DRAINING DARK BROWN, LIQUID STOOL, PATIENT HAS SACRAL WOUND, ON WOUND BED, UNDERWOOD CATH IN PLACE DRAINING YELLOW URINE AT 250 ML. UPDATED BOARD, CALL LIGHT WITHIN REACH. R/T AT BEDSIDE GIVING BREATHING TREATMENT, WILL CONTINUE TO MONITOR AND GIVE DUE MEDICATIONS.
--- NOTE | 2018-02-15 19:59 | NUR ---
TEMP 100.2 F HR 97 WILL CONTINUE TO MONITOR.
--- NOTE | 2018-02-15 22:35 | NUR ---
DUE MEDICATIONS GIVEN, PT TOLERATED WELL, 2 UNITS INSULIN GIVEN FOR BLOOD GLUCOSE 163. PATIENT RESTING IN BED, NO SIGNS OF DISTRESS, WILL CONTINUE TO MONITOR.
--- NOTE | 2018-02-15 23:31 | NUR ---
V/S TAKEN ALL WITHIN BASELINE. DUE ZOSYN GIVEN. WILL CONTINUE TO MONITOR.
[2018-02-16] VITALS: BP 143/78
--- NOTE | 2018-02-16 | NUR ---
V/S TAKEN ALL WITHIN BASELINE, SUCTIONED PATIENT X 1 VIA TRACH AND MOUTH DUE TO HIGH PRESSURE ALARM. RESOLVED, WILL CONTINUE TO MONITOR.
[2018-02-16] MEDS: IPRATROPIUM 0.02% 0.5 MG/2.5 ML NEBU IH SCH ×4 (01:11→19:03)
[2018-02-16] MEDS: ALBUTEROL 0.083% 2.5 MG/3 ML NEBU IH SCH ×4 (01:11→19:03)
[2018-02-16] MEDS: HYDRAGUARD CREAM TP SCH ×2 (01:38→12:53)
[2018-02-16] MEDS: Z-GUARD PASTE TP SCH ×2 (01:38→12:54)
--- NOTE | 2018-02-16 02:36 | NUR ---
SUCTIONED PATIENT X1 VIA TRACH DUE TO HIGH PRESSURE ALARM. RESOLVED WILL CONTINUE TO MONITOR.
[2018-02-16 04:00] VITALS: BP 140/75
[2018-02-16] MEDS: ACETAMINOPHEN 650 MG/20.3 ML UDC GT PRN ×3 (04:08→17:29)
[2018-02-16] MEDS: VALPROIC ACID 250 MG/5 ML UDC GT SCH ×3 (04:08→20:47)
[2018-02-16] MEDS: levETIRAcetam 100 MG/ML ORASYR GT SCH ×3 (04:09→20:47)
[2018-02-16] MEDS: METOCLOPRAMIDE 10 MG/2 ML INJ VIAL IVP SCH ×3 (04:09→20:48)
--- NOTE | 2018-02-16 04:43 | NUR ---
DUE MEDICATIONS GIVEN PATIENT TOLERATED WELL. V/S TAKEN, TEMP 100.5 F HR 105. GAVE ACETAMINOPHEN ACCORDING TO DRS ORDER FOR TEMP 100.4 F OR ABOVE. CATHETER CARE PROVIDED, NOTED GREEN/WHITE DISCHARGE FROM PENIS TIP. WILL CONTINUE TO MONITOR.
[2018-02-16] MEDS: PIPERACILLIN/TAZOBACTAM 4.5 GM in DEXTROSE 5% 100 ML IV SCH ×3 (05:28→17:10)
[2018-02-16] MEDS: BLOOD GLUCOSE MONITORING 1 DEV DEV FS SCH ×4 (06:18→20:47)
[2018-02-16] MEDS: INSULIN LISPRO SLIDING SCALE 100 UNITS/ML VIAL SUBQ PRN ×4 (06:20→21:04)
--- NOTE | 2018-02-16 06:22 | NUR ---
REC'D PT ON CARESCAPE VENT SETTINGS AC18 VT 650 PEEP 3 FIO2 24% ALARMS ON AND AUDIBLE AND I\L TX GIVEN WITH ALBUTEROL 2.5MG AND ATROVENT 0.5MG WITH NO ADVERSE REACTION POST TX, B\S ARE COARSE BILATERALLY, SXN PT MODERATE AMT OF FROTHY WHITE SECRETIONS, PT IS TRACH WITH PORTEX DCT #8 AND SKIN INTEGRITY IS INTACT, PT IS RESTING WITH NO SIGNS OF DISTRESS NOTED AT THIS TIME
--- NOTE | 2018-02-16 06:37 | NUR ---
DUE INSULIN GIVEN, WILL CONTINUE TO MONITOR.
--- NOTE | 2018-02-16 07:20 | NUR ---
RECEIVED PT FROM DIRECTOR BUSINESS INTELLIGENCE NURSE, SUMMER, PT IS ASLEEP, WITH FALL AND SEIZURE PRECAUTIONS ENFORCED, ON A TRACH TO VENT WITH FIO2 AT 24%, RATE AT18 AND PEEK AT 3, NO SOB NOTED.DRESSING NOTED BELOW THE TRACH. UNDERWOOD CATHETER AND RECTAL TUBE WERE PLACED. PT IS ON CONTINUOUS FEEDING OF GLUCERNA 1.2 AT 75ML/HR WITH H2O FLUSHING OF [id number]. PT HAS A CENTRAL DOUBLE LUMEN LINE IN PLACE WITH NS AT 10ML/HR, INFUSING.PT HAS A G-TUBE INTACT. O2 SATURATION IS AT 99% AND PT IS ON ST IN THE MONITOR WITH A HR OF 115. NO SIGN OF DISTRESS NOTED AND RESPIRATION EVEN. WILL CONTINUE TO MONITOR PT.
[2018-02-16 08:00] VITALS: BP 119/78
[2018-02-16 08:13] LABS: HEMATOCRIT 24.7 % (36-52); MEAN CORPUSCULAR HEMOGLOBIN 30 pg (27-31); MEAN CORPUSCULAR HGB CONC 32 g/dL (33-37); PLATELET COUNT (AUTO) 267 K/uL (140-450); RED BLOOD CELL COUNT(AUTO) 2.66 MIL/uL (4.20-6.10); RED CELL DISTRIBUTION WIDTH 20.8 % (11.6-13.7); WHITE BLOOD COUNT (AUTO) 14.5 K/uL (4.8-10.8)
[2018-02-16 08:35] LABS: ANION GAP 11.4 (8-16); CARBON DIOXIDE 18.4 mmol/L (21-32); CREATININE 1.1 mg/dL (0.7-1.3); POTASSIUM 3.8 mmol/L (3.5-5.1); TOTAL BILIRUBIN 0.2 mg/dL (0.0-1.0)
--- NOTE | 2018-02-16 08:38 | NUR ---
VENT CHECK, NO SXN NEEDED AIRWAY IS PATENT AND PT IS SLEEPING
[2018-02-16] MEDS: ASCORBIC ACID 500 MG/5 ML ORASYR GT SCH (09:13)
[2018-02-16] MEDS: ENOXAPARIN 40 MG/0.4 ML SYR SUBQ SCH (09:17)
[2018-02-16 09:18] LABS: EOSINOPHILS % (MANUAL) 7 % (0-4); LYMPHOCYTES % (MANUAL) 10 % (20-46); MONOCYTES % (MANUAL) 6 % (5-12)
[2018-02-16] MEDS: CALCITRIOL 0.25 MCG CAPLF PO SCH (09:18)
[2018-02-16] MEDS: LACTOBACILLUS RHAMNOSUS GG 1 EACH CAP PO SCH (09:18)
[2018-02-16] MEDS: ZINC SULF 220 MG CAP GT SCH (09:19)
[2018-02-16] MEDS: PANTOPRAZOLE 40 MG INJ VIAL IVP SCH (09:19)
[2018-02-16] MEDS: FERROUS SULFATE 300 MG/5 ML UDC GT SCH ×2 (09:20→20:47)
[2018-02-16] MEDS: VANCOMYCIN HCL 750 MG in NACL 0.9% 250 ML IV SCH (09:20)
--- NOTE | 2018-02-16 10:03 | NUR ---
VENT CHECK, SXN PT SMALL AMT OF FROTHY WHITE SECRETIONS, AIRWAY IS PATENT
[2018-02-16] MEDS: NACL 0.9% 1,000 ML IV SCH (10:18)
--- NOTE | 2018-02-16 11:00 | NUR ---
DR. CONTRERAS TO THE PT'S ROOM AND CHECKED ON THE PT. DRESSING CHANGE WAS DONE TO PT, WAS REPOSITIONED AND CLEANED, TEMP. WAS TAKEN AND IS 99.2, PT SHOWS NO SIGN OF DISTRESS. WILL CONTINUE TO MONITOR PT.
[2018-02-16 12:00] VITALS: BP 126/74
--- NOTE | 2018-02-16 12:34 | NUR ---
PT'S TEMP WAS CHECKED NOW AND RESULT IS 102.1, GAVE TYLENOL TO PT AND COOLING MEASURES WAS DONE. WILL CONTINUE TO MONITOR PT.
[2018-02-16] MEDS: SKINTEGRITY HYDROGEL TP SCH (12:53)
--- NOTE | 2018-02-16 13:35 | NUR ---
RECEIVED ON A [employer] CARESCAPE R860 VENTILATOR PLUGGED INTO RED OUTLET TOLERATING WELL WITHOUT INCIDENT TO A PORTEX DCT #8 AIRWAY SECURED WITH A AMOS TRACH TIE MASIMO-7 CONTINUOS PULSE OXIMETER AT BEDSIDE ON AND FUNCTIONING WELL LOW SATURATION ALARM SET AT 92% AMBU BAG NOTED AT HOB LOC QUIET GOOD CHEST RISE AIRWAY PATENT
--- NOTE | 2018-02-16 15:20 | NUR ---
RESTING COMFORTABLY NO APPARENT PULMONARY DISTRESS NOTED GOOD CHEST RISE DEEP TRACHEAL SUCTION FOR SMALL THICK PALE YELLOW SECRETIONS AIRWAY PATENT
--- NOTE | 2018-02-16 15:47 | NUR ---
02/16/18 RD FOLLOW UP COMPLETED PLEASE REFER TO NUTRITION ASSESSMENT UNDER CARE ACTIVITY FOR ESTIMATED NUTRITIONAL NEEDS. 1. CONTINUE GLUCERNA 1.2 AT 75 ML/HR -THIS WILL PROVIDE 1800 ML OF VOLUME, 2160 KCAL, 108 GM OF PROTEIN, WHICH MEETS 108% OF ESTIMATED KCAL AND 100% OF ESTIMATED PROTEIN NEEDS 2. CONTINUE FLUSH 250 ML Q8H 3. CONTINUE VITAMIN C AND ZINC SUPPLEMENTS FOR WOUND HEALING 4. RD TO FOLLOW-UP 2-3 DAYS, HIGH RISK SHAY ESCOBEDO RD
[2018-02-16 16:00] VITALS: BP 131/73
--- NOTE | 2018-02-16 16:58 | NUR ---
NO RESPIRATORY DISTRESS NOTED AT THIS TIME GOOD CHEST RISE
--- NOTE | 2018-02-16 17:00 | NUR ---
PT WAS REPOSITIONED AND CREAM BARRIERS WERE APPLIED. NO SIGN OF DISTRESS NOTED. WILL CONTINUE TO MONITOR PT.
--- NOTE | 2018-02-16 17:33 | NUR ---
PT IS ASLEEP AND V/S WERE TAKEN BP 13/73/ PULSE IS 108, TEMP IS 100.6, O2 SATURATION AT 99% RESPIRATION IS AT 20. TYLENOL WAS GIVEN VIA G-TUBE FOR ELEVATED TEMP. WILL CONTINUE TO MONITOR PT.
--- NOTE | 2018-02-16 19:30 | NUR ---
ENDORSED PT TO CONSTRUCTION MGR NURSE, MAE FOR CONTINUITY OF CARE AND TO MONITOR TEMPERATURE OF PT.
--- NOTE | 2018-02-16 19:31 | NUR ---
RECEIVED REPORT FROM DAY SHIFT RN, FOR CONTINUITY OF CARE. PT IS APHASIC ON TRACH TO VENT WITH FOLLOWING SETTINGS: FIO2 24%, VT 650, RATE 18, FLOW 55, AND PEEP 3. PT IS UNABLE TO MAKE NEEDS KNOWN, UNABLE TO FOLLOW COMMANDS. PT BREATHS EQUAL AND UNLABORED. PT HAS MULTIPLE SKIN PROBLEMS, SEE WOUND ASSESSMENT. PT IS BEDBOUND. DOUBLE LUMEN PICC LINE TO LEFT UPPER ARM, ASYMPTOMATIC AND INTACT. TEMPERATURE IS 99.7, COOLING MEASURES IN PLACE. OTHER VITAL SIGNS WITHIN NORMAL LIMITS. PT STABLE, NO SIGNS OF DISTRESS NOTED AT THIS TIME. BED IN LOWEST POSITION, BED ALARM ON. CALL LIGHT WITHIN REACH, WILL CONTINUE TO MONITOR.
[2018-02-16 20:00] VITALS: BP 118/63
--- NOTE | 2018-02-16 20:50 | NUR ---
ADMINISTERED SCHEDULED MEDICATIONS VIA G-TUBE, FLUSHED WITH 10ML WATER IN BETWEEN EACH MED AND FLUSHED WITH 60ML WATER AFTER LAST MEDICATION WAS ADMINISTERED. ALSO ADMINISTERED 4UNITS OF HUMALOG TO COVER PT BLOOD SUGAR AT 206. PT TOLERATED WELL.
--- NOTE | 2018-02-16 22:39 | NUR ---
DRAINED RECTAL TUBE BAG, AND APPLIED NEW SECUREMENT FOR UNDERWOOD CATHETER.
[2018-02-17] VITALS (7 sets, daily range): BP systolic 111–162; BP diastolic 60–88
[2018-02-17] MEDS: PIPERACILLIN/TAZOBACTAM 4.5 GM in DEXTROSE 5% 100 ML IV SCH ×4 (00:40→17:20)
[2018-02-17] MEDS: IPRATROPIUM 0.02% 0.5 MG/2.5 ML NEBU IH SCH ×3 (00:45→13:08)
[2018-02-17] MEDS: ALBUTEROL 0.083% 2.5 MG/3 ML NEBU IH SCH ×3 (00:45→13:08)
--- NOTE | 2018-02-17 00:45 | NUR ---
PT HAS TEMPERATURE OF 102.4, WILL ADMINISTER TYLENOL ORDERED. OTHER VITAL SIGNS WITHIN NORMAL LIMITS. PT STABLE, NO SIGNS OF DISTRESS NOTED AT THIS TIME. BED IN LOWEST POSITION, BED ALARM ON. CALL LIGHT WITHIN REACH, WILL CONTINUE TO MONITOR.
[2018-02-17] MEDS: Z-GUARD PASTE TP SCH ×2 (00:48→13:12)
[2018-02-17] MEDS: HYDRAGUARD CREAM TP SCH ×2 (00:48→13:12)
[2018-02-17] MEDS: ACETAMINOPHEN 650 MG/20.3 ML UDC GT PRN (01:03)
--- NOTE | 2018-02-17 01:15 | NUR ---
ADMINISTERED TYLENOL ORDERED FOR FEVER AND FLUSHED WITH 50ML WATER. PT TOLERATED WELL. GAVE PT BED BATH AND PUT MORE ICE PACKS ON HIM.
--- NOTE | 2018-02-17 04:00 | NUR ---
PT TEMPERATURE IS NOW 99.9, OTHER VITAL SIGNS WITHIN NORMAL LIMITS. PT STABLE, NO SIGNS OF DISTRESS NOTED AT THIS TIME. BED IN LOWEST POSITION, BED ALARM ON. CALL LIGHT WITHIN REACH, WILL CONTINUE TO MONITOR.
[2018-02-17] MEDS: METOCLOPRAMIDE 10 MG/2 ML INJ VIAL IVP SCH ×2 (05:03→13:11)
[2018-02-17] MEDS: VALPROIC ACID 250 MG/5 ML UDC GT SCH ×2 (05:03→13:10)
[2018-02-17] MEDS: levETIRAcetam 100 MG/ML ORASYR GT SCH ×2 (05:03→13:11)
[2018-02-17] MEDS: INSULIN LISPRO SLIDING SCALE 100 UNITS/ML VIAL SUBQ PRN ×3 (05:39→17:28)
[2018-02-17] MEDS: BLOOD GLUCOSE MONITORING 1 DEV DEV FS SCH ×3 (06:10→17:04)
--- NOTE | 2018-02-17 06:32 | NUR ---
RECEIVED PT ON CARESCAPE ON DOCUMENTED SETTINGS PTS TRACH PORTEX 8 IS SECURE BS COARSE PT IN HF QUIET HHN GIVEN WITH 2.5 MG ALBUTEROL AND 0.5 MG ATROVENT VENT PLUGGED INTO RED OUTLET CONT POX IN PLACE BMV HOB
--- NOTE | 2018-02-17 07:42 | NUR ---
PT TEMPERATURE IS NOW 99.9, OTHER VITAL SIGNS WITHIN NORMAL LIMITS. PT STABLE, NO SIGNS OF DISTRESS NOTED AT THIS TIME. BED IN LOWEST POSITION, BED ALARM ON. CALL LIGHT WITHIN REACH, WILL CONTINUE TO MONITOR. Addendum: 02/17/18 at 0743 by Iza Gomez RN WRONG NOTE, DISREGARD.
--- NOTE | 2018-02-17 07:42 | NUR ---
ENDORSED PT IN STABLE CONDITION TO DAY SHIFT RN FOR CONTINUITY OF CARE, PT IN STABLE CONDITION.
--- NOTE | 2018-02-17 07:43 | NUR ---
RECEIVED BEDSIDE REPORT FROM SECURITY COMPLIANCE SPECIALIST NURSE. PATIENT IS AWAKE. HE IS APHASIC. TRACH TO VENT. VENT SETTINGS FIO2 24 VT 650 RR 18 FLOW 40 PEEP 3 PMAX 55. PATIENT IS BEDBOUND. RECTAL BAG IN PLACE. UNDERWOOD IN PLACE. BOTH DRAINING WELL. ABRAN PICC LINE INFUSING NS AT 10. CLEAN, DRY AND INTACT. GTUBE INTACT. INFUSING GLUCERNIA AT 75ML W H20 FLUSH AT 250 Q8HRS. SKIN HAS R BACK REDNESS, SACRAL PRESSURE ULCER, OPTIFORM IN PLACE. R FOOT HAS ALL TOES AMPUTATED, L BKA. HEEL PROTECTORS IN PLACE. WOUND BED IN PLACE. BELOW THE TRACH HAS SKIN TEAR, DRESSING INTACT. SEIZURE, FALL, ASP AND CONTACT PRECAUTIONS IN PLACE. BED IN LOW POSITION. BED ALARM ON. WILL CONTINUE TO MONITOR THE PATIENT.
--- NOTE | 2018-02-17 09:00 | NUR ---
PATIENT SITTING IN BED SLEEPING. NO SIGNS OF DISTRESS
[2018-02-17] MEDS: ASCORBIC ACID 500 MG/5 ML ORASYR GT SCH (10:01)
[2018-02-17] MEDS: FERROUS SULFATE 300 MG/5 ML UDC GT SCH (10:01)
[2018-02-17] MEDS: CALCITRIOL 0.25 MCG CAPLF PO SCH (10:01)
[2018-02-17] MEDS: PANTOPRAZOLE 40 MG INJ VIAL IVP SCH (10:02)
[2018-02-17] MEDS: LACTOBACILLUS RHAMNOSUS GG 1 EACH CAP PO SCH (10:02)
[2018-02-17] MEDS: ZINC SULF 220 MG CAP GT SCH (10:02)
--- NOTE | 2018-02-17 10:10 | NUR ---
CHECKED GTUBE FOR PLACEMENT USING SWOOSH. 5ML RESIDUAL PLACED BACK. CRUSHED MEDS AND ADMINISTERED. FLUSHED EACH MED. PATIENT TOLERATED WELL. WILL CONTINUE TO MONITOR THE PATIENT
[2018-02-17] MEDS: VANCOMYCIN HCL 750 MG in NACL 0.9% 250 ML IV SCH (10:25)
[2018-02-17] MEDS: ENOXAPARIN 40 MG/0.4 ML SYR SUBQ SCH (10:26)
[2018-02-17 11:23] LABS: HEMATOCRIT 23.7 % (36-52); HEMOGLOBIN 7.6 g/dL (12.0-18.0); MEAN CORPUSCULAR HEMOGLOBIN 30 pg (27-31); MEAN CORPUSCULAR HGB CONC 32 g/dL (33-37); MEAN CORPUSCULAR VOLUME 93.6 fL (80-94); PLATELET COUNT (AUTO) 258 K/uL (140-450); RED BLOOD CELL COUNT(AUTO) 2.53 MIL/uL (4.20-6.10); RED CELL DISTRIBUTION WIDTH 20.9 % (11.6-13.7); WHITE BLOOD COUNT (AUTO) 15.3 K/uL (4.8-10.8)
--- NOTE | 2018-02-17 12:00 | NUR ---
VITALS WITHIN NORMAL LIMITS. WILL CONTINUE TO MONITOR
[2018-02-17 12:04] LABS: ANION GAP 11.6 (8-16); CARBON DIOXIDE 19.9 mmol/L (21-32); CREATININE 0.9 mg/dL (0.7-1.3); POTASSIUM 3.5 mmol/L (3.5-5.1)
[2018-02-17 12:14] LABS: EOSINOPHILS % (MANUAL) 4 % (0-4); LYMPHOCYTES % (MANUAL) 12 % (20-46); MONOCYTES % (MANUAL) 6 % (5-12)
[2018-02-17] MEDS: NACL 0.9% 1,000 ML IV SCH (13:11)
[2018-02-17] MEDS: SKINTEGRITY HYDROGEL TP SCH (13:12)
--- NOTE | 2018-02-17 13:26 | NUR ---
ADMINISTERED MEDS. PATIENT TOLERATING WELL. RT JUST FINISHED BREATHING TX. WILL CONTINUE TO MONITOR Addendum: 02/17/18 at 1429 by Naomi Boles RN 35ML RESIDUAL, PLACED BACK
--- NOTE | 2018-02-17 14:20 | NUR ---
PATIENT IS SLEEPING. NO SIGNS OF DISTRESS. WILL CONTINUE TO MONITOR
--- NOTE | 2018-02-17 15:23 | NUR ---
Concurrent Review faxed to [facility].
[2018-02-17] MEDS ORDERED: VANC750S IV (15:46)
[2018-02-17] MEDS ORDERED: ZIN220 GT (15:46)
--- NOTE | 2018-02-17 16:15 | NUR ---
PATIENT GETTING CLEANED BY DEVELOPMENT LEAD. PATIENT TOLERATING WELL. WILL CONTINUE TO MONITOR THE PATIENT
--- NOTE | 2018-02-17 16:39 | NUR ---
Spoke to Santos in [facility]. They have an isolation bed available. Room No. is 26A and it will be available at 6 pm. will be the physician. They have asked for the nurse to send the report with the patient and ask for the RN Senior Mobile Developer in subacute. Nurse Coombs has been updated with this information.
--- NOTE | 2018-02-17 17:00 | NUR ---
PLACED ICE PACKS TO HELP W TEMP. RECHECKS TEMP AND IT IS NOW 99.6
--- NOTE | 2018-02-17 17:30 | NUR ---
ADMINISTERED ANTIBIOTIC. ADMINISTERED HUMALOG ON LEFT UPPER ARM. PATIENT TOLERATED WELL. WILL CONTINUE TO MONITOR PATIENT.
--- NOTE | 2018-02-17 18:50 | NUR ---
GAVE TELEPHONE REPORT TO ELLEN. GAVE CALL BACK NUMBER. ANSWERED ALL QUESTIONS AT THIS TIME. EDUCATED PATIENT ON DISEASE PROCESS, ABNORMAL SIGNS AND SYMPTOMS, MEDS, FOLLOW UP WITH DOCTOR. EDUCATED ON WOUND CARE. PATIENT IS NONVERBAL. PNEUMONIA AND FLU VACCINE UP TO DATE. ID BANDS REMOVED. TELE MONITOR REMOVED. PATIENT WILL LEAVE WITH RECTAL TUBE, UNDERWOOD AND PICC LINE. CONTACTED BROTHER. LEFT MESSAGE. NO ANSWER. LEFT CALL BACK NUMBER.
--- NOTE | 2018-02-17 19:11 | NUR ---
PATIENT ON GURNEY WITH MEDICS, AND RESPIRATORY THERAPIST BEING TRANSFERRED TO [facility]
--- NOTE | 2018-02-17 19:15 | NUR ---
AT 1915 GAVE BEDSIDE REPORT TO [facility] STAFF. PATIENT LEFT ON [facility] IN STABLE CONDITION TO [facility].
== END 2018-02-17 19:15 | DRG 720 ==
LOC: MED 09:29 → MIC 11:19 → MTU 02-08 05:48
PROVIDERS: ADMIT Internal Medicine; ATTEND Internal Medicine
PROC: 5A1955Z Respiratory Ventilation, Greater than 96 Consecutive Hours (ICD-10-PCS; principal; 2018-02-02)
PROC: 30233N1 Transfusion of Nonautologous Red Blood Cells into Peripheral Vein, Percutaneous Approach (ICD-10-PCS; 2018-02-02)
PROC: 02HV33Z Insertion of Infusion Device into Superior Vena Cava, Percutaneous Approach (ICD-10-PCS; 2018-02-10)
PROC: B548ZZA Ultrasonography of Superior Vena Cava, Guidance (ICD-10-PCS; 2018-02-10)
DX: A41.9 Sepsis, unspecified organism (principal); J96.20 Acute and chronic respiratory failure, unspecified whether with hypoxia or hypercapnia; G93.40 Encephalopathy, unspecified; Z99.11 Dependence on respirator [ventilator] status; G93.41 Metabolic encephalopathy; J18.9 Pneumonia, unspecified organism; J15.1 Pneumonia due to Pseudomonas; L89.154 Pressure ulcer of sacral region, stage 4; R53.2 Functional quadriplegia; G40.909 Epilepsy, unspecified, not intractable, without status epilepticus; E66.9 Obesity, unspecified; B37.49 Other urogenital candidiasis; D64.9 Anemia, unspecified; E11.51 Type 2 diabetes mellitus with diabetic peripheral angiopathy without gangrene; E88.09 Other disorders of plasma-protein metabolism, not elsewhere classified; K52.9 Noninfective gastroenteritis and colitis, unspecified; E87.6 Hypokalemia; B95.2 Enterococcus as the cause of diseases classified elsewhere; I12.9 Hypertensive chronic kidney disease with stage 1 through stage 4 chronic kidney disease, or unspecified chronic kidney disease; N18.9 Chronic kidney disease, unspecified; E11.22 Type 2 diabetes mellitus with diabetic chronic kidney disease; Y95 Nosocomial condition; R13.10 Dysphagia, unspecified; E83.51 Hypocalcemia; Z89.431 Acquired absence of right foot; B96.5 Pseudomonas (aeruginosa) (mallei) (pseudomallei) as the cause of diseases classified elsewhere; Z93.0 Tracheostomy status; Z89.512 Acquired absence of left leg below knee; Z68.34 Body mass index [BMI] 34.0-34.9, adult; Z22.322 Carrier or suspected carrier of Methicillin resistant Staphylococcus aureus; Z86.73 Personal history of transient ischemic attack (TIA), and cerebral infarction without residual deficits; Z79.4 Long term (current) use of insulin; Z79.899 Other long term (current) drug therapy; Z93.1 Gastrostomy status
CPT/HCPCS: 36415; 36600; 71045; 74018; 80048; 80053; 80202; 81001; 82272; 82330; 82550; 82553; 82607; 82728; 82746; 82803; 82948; 83540; 83605; 83880; 84484; 85018; 85025; 85610; 85730; 86886; 86900; 86901; 86920; 87040; 87070; 87081; 87086; 87186; 87205; 89220; 93005; 94002; 94003; 94640; 96361; 96365; 99291; A4330; A6248; C1751; C1758; C9113; J0692; J1650; J1815; J1940; J1956; J2060; J2185; J2270; J2543; J2765; J3370; J7030; J7060; J7613; J7620; J7644; P9016; Q0092

== ENCOUNTER 2018-02-26 19:14 | Inpatient (IN) | payer OTHER ==
[~2018-02-26] VITALS: Ht 177.8 cm; Wt 105.2 kg
[~2018-02-26 19:14] MED LIST changes: +ACET650S53 GT; +ALBU3SOL83 IH; +ASCO500T45 GT; -CLON0.2T16 GT; -DIAZ5TAB7 GT; -FLUC200T GT; +HYDGEL TP; +LACT10CA PO; -NOVR IM; +SLIDE SUBQ; +VANC750S IV; +ZIN220 GT; +ZOS3.375I IV
[2018-02-26 19:15] VITALS: BP 102/62
--- NOTE | 2018-02-26 19:15 | NUR ---
PT BIBA ALS TO BED 5
--- NOTE | 2018-02-26 19:15 | NUR ---
52/M BIBA FROM [facility] FOR ABRNORMAL LABS: HGB 6.7/HCT 21. NO OTHER COMPLAINTS REPORTED FROM FACILITY. PT IS TRACH TO VENT, NO RESPIRATORY DISTRESS. GTUBE AND UNDERWOOD IN PLACED. LEFT BKA NOTED. ALL RIGHT TOES AMPUTATED. PICC LINE TO LT UPPER ARM NOTED. Addendum: 02/26/18 at 2133 by RENETTA NO OBVIOUS SIGNS OF HEMORRHAGE NOTED. ABD ROUND, DISTENDED , BS ACTIVE X 4. URINE YELLOW AND CLOUDY. PT ARRIVED WITH DIARRHEA, NO BLOOD NOTED.
--- NOTE | 2018-02-26 19:15 | NUR ---
Janna hahn in ED - 02/26/18 at 1957 by RENETTA 52/M [place] FROM [facility] FOR Mobile Health ConsumerNOOOT[facility]: HGB 6./HCT 21
--- NOTE | 2018-02-26 19:15 | NUR ---
Pt BIBA, in chronic PVS, BVM to trach per EMS, Skin warm and moist, Noted constant shake of right arm, No purposeful movement noted, PICC line in place to left upper arm, Zepeda in place, G-tube in place, noted left BKA. Placed in bed 5, RT called to bedside. Dr Acevedo made aware of arrival.
--- NOTE | 2018-02-26 19:15 | NUR ---
Patient noted to have existing wounds upon arrival to ER. Photos taken of wound and placed in chart. Wound covered with dressing. Physician informed.
[2018-02-26] MEDS ORDERED: NACL 0.9% 500 ML IV SCH (19:17)
[2018-02-26 19:20] VITALS: BP 131/71
--- NOTE | 2018-02-26 19:33 | NUR ---
analytical laboratory technician at bedside.
--- NOTE | 2018-02-26 19:39 | NUR ---
Dr. Acevedo evaluating patient at bedside.
[2018-02-26 20:05] LABS: BASOPHILS # (AUTO) 0.1 K/uL (0.00-0.22); BASOPHILS % (AUTO) 0.7 % (0.0-2.0); EOSINOPHILS # (AUTO) 0.2 K/uL (0-0.4); EOSINOPHILS % (AUTO) 2.2 % (0.0-4.0); HEMATOCRIT 21.8 % (36-52); LYMPHOCYTES % (AUTO) 11.9 % (20.5-51.1); MEAN CORPUSCULAR HEMOGLOBIN 31 pg (27-31); MEAN CORPUSCULAR HGB CONC 32 g/dL (33-37); MONOCYTES # (AUTO) 0.5 K/uL (0.8-1.0); MONOCYTES % (AUTO) 6.2 % (1.7-9.3); NEUTROPHILS # (AUTO) 6.6 K/uL (1.8-7.7); PLATELET COUNT (AUTO) 206 K/uL (140-450); RED BLOOD CELL COUNT(AUTO) 2.29 MIL/uL (4.20-6.10); RED CELL DISTRIBUTION WIDTH 20.4 % (11.6-13.7); WHITE BLOOD COUNT (AUTO) 8.3 K/uL (4.8-10.8)
--- NOTE | 2018-02-26 20:08 | NUR ---
qa tech at bedside for CXR.
[2018-02-26 20:31] LABS: PROTHROMBIN TIME 10.9 secs (10.8-13.4)
[2018-02-26 20:38] LABS: APPEARANCE,URINE SLIGHTLY HAZY (CLEAR); COLOR,URINE YELLOW (YELLOW); PH,URINE 7.5 (5.0-9.0)
[2018-02-26 20:39] LABS: BILIRUBIN,URINE NEGATIVE (NEGATIVE); BLOOD, URINE 3+ (NEGATIVE); LEUKOCYTE ESTERASE ,URINE 2+ (NEGATIVE); NITRITE, URINE NEGATIVE (NEGATIVE); UGLUCOSE NEGATIVE (NEGATIVE)
[2018-02-26 20:43] LABS: ANION GAP 11.6 (8-16); CARBON DIOXIDE 27.8 mmol/L (21-32); POTASSIUM 4.4 mmol/L (3.5-5.1)
[2018-02-26 20:48] LABS: RBC,URINE TOO NUMEROUS TO COUN /HPF (0-5)
[2018-02-26 20:49] LABS: WBC,URINE TOO MANY TO COUNT /HPF (0-5)
[2018-02-26 20:49] LABS: ALBUMIN 1.2 g/dL (3.4-5.0); TOTAL BILIRUBIN 0.2 mg/dL (0.0-1.0)
[2018-02-26] MEDS ORDERED: LEVOFLOXACIN 500 MG/D5W PREMIX 100 ML IV ONE (20:50)
[2018-02-26] MEDS ORDERED: PIPERACILLIN/TAZOBACTAM 3.375 GM in DEXTROSE 5% 50 ML IV ONE (20:50)
[2018-02-26] MEDS ORDERED: NACL 0.9% 1,000 ML IV ONE (20:55)
[2018-02-26] MEDS ORDERED: PIPERACILLIN/TAZOBACTAM 3.375 GM VIAL IV ONE (21:06)
[2018-02-26 21:22] VITALS: BP 136/69
--- NOTE | 2018-02-26 21:53 | NUR ---
RECEIVED PT FROM ER VIA MEJIA. PT AFEBRILE. NONVERBAL. TRACH TO VENT. LUNG SOUNDS DIMINISHED BILAT. FIO2 [address] ON MONITOR. GTUBE TO LUQ. BLADDER NONDISTENDED. F/C IN PLACE. PICC LINE ABRAN. PRESSURE INJURY TO SACRUM NOTED. HOB 30. LEFT BKA. RIGHT TOES AMPUTATED. BED IN LOWEST POSITION. CALL LIGHT WITHIN REACH. WILL CONTINUE TO MONITOR.
--- NOTE | 2018-02-26 21:53 | NUR ---
Patient will be admitted to [facility]. Admited to ICU. Will go to room 5. Belongings list completed. Report to MELYSSA APODACA.
--- NOTE | 2018-02-26 21:59 | NUR ---
Transferred to ICU-5 with Елена APODACA with no incidence.
[2018-02-26 22:00] VITALS: BP 129/78
--- NOTE | 2018-02-26 22:35 | NUR ---
RECEIVED CONSENT FOR BLOOD TRANSFUSION FROM SON (SUZY HENSON) 2 NURSE CONFIRMATION.
[2018-02-26] MEDS ORDERED: VANCOMYCIN PER PHARMACY MC PRN (22:45)
[2018-02-26 23:00] VITALS: BP 121/94
[2018-02-26] MEDS ORDERED: NACL 0.9% 1,000 ML IV SCH (23:00)
--- NOTE | 2018-02-26 23:31 | NUR ---
PAGED DR. LOPEZ (FABRICATION SPECIALIST FOR DR. GOYAL) AT THIS TIME REGARDING ADDITIONAL ORDERS AND CLARIFICATION
[2018-02-26] MEDS ORDERED: VANCOMYCIN 1,000 MG VIAL ONE (23:38)
--- NOTE | 2018-02-26 23:39 | NUR ---
CLARIFIED ORDERS WITH DR. LOPEZ. PT TO RECEIVE 2 UNIT PRBC. ATIVAN 1MG Q 6H PRN, TYLENOL 650 MG Q 6 PRN, ZOFRAN Q6H PRN, NPO STATUS, BLOOD SUGAR ACHS, HUMALOG VIA SLIDING SCALE
[2018-02-27] VITALS (23 sets, daily range): BP systolic 96–155; BP diastolic 47–94
[2018-02-27] MEDS ORDERED: ONDANSETRON 4 MG/2 ML VIAL IVP PRN
[2018-02-27] MEDS ORDERED: VANCOMYCIN 1,500 MG in DEXTROSE 5% 500 ML IV SCH ×2
[2018-02-27] MEDS ORDERED: ACETAMINOPHEN 325 MG TAB PO PRN
--- NOTE | 2018-02-27 00:30 | NUR ---
STARTED BLOOD TRANSFUSION OF 1 UNIT PRBC. NO ADVERSE REACTIONS NOTED.
--- NOTE | 2018-02-27 01:20 | NUR ---
RT AT BEDSIDE AT THIS TIME TO EVALUATE PATIENT. NO SIGNS OF ACUTE DISTRESS NOTED.
--- NOTE | 2018-02-27 02:31 | NUR ---
PAGED DR. LOPEZ FOR CLARIFICATION REGARDING FLUIDS AND THERAPEUTIC RIDING INSTRUCTOR. WILL WAIT FOR CALL BACK.
--- NOTE | 2018-02-27 02:55 | NUR ---
RT AT BEDSIDE AT THIS TIME TO EVALUATE PATIENT. NO SIGNS OF ACUTE DISTRESS NOTED. WILL CONTINUE TO MONITOR.
--- NOTE | 2018-02-27 03:30 | NUR ---
1 UNIT PRBC INFUSED. NO ADVERSE REACTIONS NOTED.
--- NOTE | 2018-02-27 03:45 | NUR ---
INFUSING 1 UNIT PRBC AT THIS TIME. CONTINUOUS MONITORING FOR 15 MINUTES TO MONITOR FOR ADVERSE REACTIONS.
[2018-02-27] MEDS ORDERED: PIPERACILLIN/TAZOBACTAM 3.375 GM VIAL IV ONE (05:21)
[2018-02-27] MEDS: PIPER/TAZO 3.375GM/D5W PREMIX 50 ML IV SCH ×4 (05:33→23:04)
--- NOTE | 2018-02-27 06:39 | NUR ---
CALLED LAB, SPOKE WITH XIOMY, CLARIFIED TO WHEN THEY WANT TO DRAW BLOOD FOR [facility] POST BLOOD TRANSFUSION. THEY SAID TO CALL IN 2 HRS. WILL ENDORSE TO THE NEXT SHIFT.
--- NOTE | 2018-02-27 07:00 | NUR ---
SPOKE TO DR. LOPEZ. NOTIFIED OF BLOOD SUGAR 177 MG/DL. HOLD INSULIN. FLUIDS SWITCHED FROM 0.9%NaCl TO D5W AT 75ML/HR.
--- NOTE | 2018-02-27 07:16 | NUR ---
recived pt on vent with settings as charted breath sounds present bilat coarse sxn pt with min amt off white secs trach site secure ambu bag at bedside vent plugged into red outlet will continue to monitor pt on vent
--- NOTE | 2018-02-27 07:21 | NUR ---
ENDORSED CARE TO INCOMING SHIFT FOR CONTINUITY OF CARE. PT IN STABLE CONDTION. NO SIGNS OF ACUTE DISTRESS AT THIS TIME. BED IN LOWEST POSITION. CALL LIGHT WITHIN REACH.
--- NOTE | 2018-02-27 07:30 | NUR ---
RECEIVED PT FROM PM NURSE, PT SLEEPING, NONVERBAL, UNABLE TO FOLLOW COMMANDS. BEDSIDE MONITOR SHOWS ST,TRACH TO VENT WITH SETTING FIO2 =36%, VT 650, PEEP 5, NO S/S OF RESPIRATORY DISTRESS NOTED. PT HAS PICC LINE TO LEFT UPPER ARM RUNNING D5W AT 75 MLS/HR. PT RIGHT HAND SHAKING CONSISTENTLY ONCE IN A WHILE. SKIN NOT INTACT ( SEE WOUND ASSESSMENT), SAFETY MEASURE IN PLACE, HOB ELEVATED 30 DEGREES WITH LOW BED POSITION.WILL CONTINUE TO MONITOR PT.
[2018-02-27] MEDS: BLOOD GLUCOSE MONITORING 1 DEV DEV FS SCH ×4 (07:44→20:40)
[2018-02-27] MEDS ORDERED: DEXTROSE 5% 1,000 ML IV SCH (08:00)
--- NOTE | 2018-02-27 08:15 | NUR ---
TURNED AND REPOSITIONED WITH CHARGE NURSE. PT HAD LARGE AMOUNT OF SOFT BM. CLEANED PT. TJ CARE GIVEN. ORAL CARE GIVEN. PT HAS AMPUTATION TO BOTH LOWER EXTREMITIES, NO TOES TO RIGHT FOOT. OFF LOAD PRESSURE AREA.
[2018-02-27 09:06] LABS: BASOPHILS # (AUTO) 0.1 K/uL (0.00-0.22); BASOPHILS % (AUTO) 0.7 % (0.0-2.0); EOSINOPHILS # (AUTO) 0.1 K/uL (0-0.4); EOSINOPHILS % (AUTO) 1.5 % (0.0-4.0); HEMATOCRIT 26.8 % (36-52); HEMOGLOBIN 8.7 g/dL (12.0-18.0); LYMPHOCYTES % (AUTO) 10.8 % (20.5-51.1); MEAN CORPUSCULAR HEMOGLOBIN 30 pg (27-31); MEAN CORPUSCULAR HGB CONC 33 g/dL (33-37); MEAN CORPUSCULAR VOLUME 91.6 fL (80-94); MONOCYTES # (AUTO) 0.7 K/uL (0.8-1.0); MONOCYTES % (AUTO) 7.5 % (1.7-9.3); NEUTROPHILS # (AUTO) 7.4 K/uL (1.8-7.7); NEUTROPHILS % (AUTO) 79.5 % (42.2-75.2); PLATELET COUNT (AUTO) 186 K/uL (140-450); RED BLOOD CELL COUNT(AUTO) 2.92 MIL/uL (4.20-6.10); RED CELL DISTRIBUTION WIDTH 20.7 % (11.6-13.7); WHITE BLOOD COUNT (AUTO) 9.4 K/uL (4.8-10.8)
[2018-02-27 09:49] LABS: ANION GAP 13.6 (8-16); CARBON DIOXIDE 25.2 mmol/L (21-32); POTASSIUM 3.8 mmol/L (3.5-5.1); TOTAL BILIRUBIN 0.3 mg/dL (0.0-1.0)
[2018-02-27 09:50] LABS: ALBUMIN 1.2 g/dL (3.4-5.0)
[2018-02-27] MEDS ORDERED: Z-GUARD PASTE TP PRN (10:10)
[2018-02-27] MEDS ORDERED: THERAHONEY GEL 42.5 GM TP PRN (10:10)
[2018-02-27] MEDS ORDERED: FOAM DRESSING TP PRN (10:20)
[2018-02-27] MEDS: LORazepam 2 MG/ML VIAL IVP PRN (11:13)
--- NOTE | 2018-02-27 11:15 | NUR ---
PATIENT HAS BEEN SCREENED AND CATEGORIZED HIGH NUTRITION RISK. PATIENT WILL BE SEEN WITHIN 1-2 DAYS OF ADMISSION. 02/27/18 02/28/18 SAGRARIO SCHMIDT MBA, RD
--- NOTE | 2018-02-27 11:22 | NUR ---
PT HAD SEIZURE FOR 30 SECONDS, DURING SEIZURE, PT UNRESPONSIVE, MAKING SOUNDS FROM HIS MOUTH.ATIVAN 1 MG [address]IVEN [address] NOT[address] GOYAL, CHARGE NURSE MADE AWARE. PER , CONTINUE HOME MEDS KEPPRA AND VALPROIC ACID THE SAME DOSE AT [facility].
[2018-02-27] MEDS: INSULIN LISPRO SLIDING SCALE 100 UNITS/ML VIAL SUBQ PRN ×3 (11:42→20:41)
[2018-02-27] MEDS ORDERED: VANCOMYCIN 1,500 MG in NACL 0.9% 500 ML IV SCH (12:00)
[2018-02-27] MEDS: VANCOMYCIN 1GM/DEXT 5% PREMIX 200 ML IV SCH ×2 (12:20→23:39)
[2018-02-27] MEDS ORDERED: levETIRAcetam 100 MG/ML ORASYR GT SCH (13:00)
[2018-02-27] MEDS ORDERED: VALPROIC ACID 250 MG/5 ML UDC GT SCH (13:00)
--- NOTE | 2018-02-27 13:54 | NUR ---
WHEELED BACK TO UNIT FROM CT. PATIENT IN STABLE CONDITION.
[2018-02-27] MEDS ORDERED: INSULIN LISPRO SLIDING SCALE 100 UNITS/ML VIAL SUBQ PRN (13:55)
[2018-02-27] MEDS: Z-GUARD PASTE TP SCH (15:00)
[2018-02-27] MEDS: THERAHONEY GEL 42.5 GM TP SCH (15:00)
--- NOTE | 2018-02-27 15:30 | NUR ---
LARGE AMOUNT OF BROWN LOOSE STOOLS NOTED. WOUND DRESSING CHANGED. RECTAL BAG APPLIED. TURNED AND REPOSITIONED AT THIS TIME. PATIENT TOLERATED WELL.
--- NOTE | 2018-02-27 16:12 | NUR ---
TAKEN TO CT.
[2018-02-27] MEDS ORDERED: BLOOD GLUCOSE MONITORING 1 DEV DEV FS SCH (16:30)
--- NOTE | 2018-02-27 16:54 | NUR ---
PT MANUALLY VENTILATED FROM CT BACK TO ICU WITHOUT INCIDENT. PT PLACED BACK ON VENT WITH DOCUMENTED VENT SETTINGS. TRACH REMAINS SECURE WITH A PATENT AIRWAY. PT IS NOT IN ANY DISTRESS AT THIS TIME. NURSE IS BEDSIDE.
--- NOTE | 2018-02-27 17:20 | NUR ---
CONTINE TO MNITOR PT ON VENT WITH SETTINGS CHARTED BREATH SOUNDS PRESENT BILAT COARSE SXN PT WITH MIN AMT OFF WHITE SECS TRACH SITE SECURE VENT PLUGGED INTO RED OUTLET AMBU BAG AT BEDSIDE
--- NOTE | 2018-02-27 19:03 | NUR ---
RECEIVED REPORT FROM AM NURSE. PT AFEBRILE. NONVERBAL. TRACH TO VENT. VENT SETTINGS FIO2 36 VT 650 RATE 18 PEEP 5. SR ON MONITOR. S1 AND S2 PRESENT. GT TO FEED. GLUCERNA 1.2 @ 20 ML/HR WITH 250ML H20 FLUSH Q 4H. BOWEL AND BLADDER INCONTINENCE. PICC ABRAN. 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 DRESSING SITE TO ANTERIOR CHEST DRY INTACT. DRESSING TO SACRAL COCCYX INTACT. F/C PATENT. RECTAL BAG PATENT. BED IN LOWEST POSITION. SR UP X 4. WILL CONTINUE TO MONITOR.
--- NOTE | 2018-02-27 19:04 | NUR ---
REPORT GIVEN TO NOC RN FOR CONTINUITY OF CARE. PATIENT IN STABLE CONDITION.
--- NOTE | 2018-02-27 19:10 | NUR ---
PATIENT RESTING CALMLY. NO SOB OR DISTRESS NOTED. VENT SETTINGS: 18, 650, +5, 36%. VENT PLUGGED INTO RED OUTLET. AMBU BAG AT BEDSIDE. ALARMS ON AND AUDIBLE WITHIN ACCEPTABLE PARAMETERS. VITALS STABLE: 100%, PULSE 97, RATE 18, BREATH SOUNDS COARSE. SXNED X1 FOR SCANT AMOUNT OF CREAMY, THICK SECRETIONS. MOUTH SUCTIONED FOR COPIOUS AMOUNTS. TRACH PATENT, CLEAN AND DRY.
[2018-02-27] MEDS: FAMOTIDINE 20 MG/2 ML VIAL IV SCH (20:08)
[2018-02-27] MEDS: NACL 0.9% 1,000 ML IV SCH (20:09)
[2018-02-27] MEDS: levETIRAcetam 100 MG/ML ORASYR GT SCH (20:09)
[2018-02-27] MEDS: VALPROATE SODIUM 1,000 MG in NACL 0.9% 100 ML IV SCH (20:10)
--- NOTE | 2018-02-27 20:16 | NUR ---
[facility] AND SPOKE WITH DR. ALLAN. FLUIDS CHANGED FROM D5 TO 0.9%NS 1000 ML WITH RATE OF 75 ML.
--- NOTE | 2018-02-27 20:32 | NUR ---
PT TURNED AT REPOSITIONED AT THIS TIME.
[2018-02-27] MEDS ORDERED: VANCOMYCIN 1,000 MG VIAL ONE (23:34)
--- NOTE | 2018-02-27 23:46 | NUR ---
RT AT BEDSIDE AT THIS TIME
[2018-02-28] VITALS (21 sets, daily range): BP systolic 104–149; BP diastolic 64–96
--- NOTE | 2018-02-28 01:13 | NUR ---
PT HAD LARGE BM AT THIS TIME. WOUND CARE PROVIDED. AND PATIENT REPOSITIONED. NO SIGNS OF ACUTE DISTRESS AT THIS TIME.
--- NOTE | 2018-02-28 01:24 | NUR ---
RT AT BEDSIDE AT THIS TIME.
[2018-02-28] MEDS: Z-GUARD PASTE TP SCH ×2 (01:27→12:37)
--- NOTE | 2018-02-28 01:32 | NUR ---
INCREASED FEEDING RATE TO 40ML/HR. WILL MONITOR RESIDUALS.
--- NOTE | 2018-02-28 02:13 | NUR ---
RESIDUALS AT 160 ML. TUBE FEEDING HELD AT THIS TIME.
--- NOTE | 2018-02-28 02:57 | NUR ---
RT AT BEDSIDE AT THIS TIME.
[2018-02-28] MEDS: levETIRAcetam 100 MG/ML ORASYR GT SCH ×3 (04:03→21:43)
[2018-02-28] MEDS: VALPROATE SODIUM 1,000 MG in NACL 0.9% 100 ML IV SCH ×3 (04:03→21:20)
--- NOTE | 2018-02-28 04:23 | NUR ---
PT TURNED AND REPOSITIONED. FEEDING RESUMED AT 40 ML/HR. <10ML RESIDUAL NOTED.
--- NOTE | 2018-02-28 04:53 | NUR ---
RT AT BEDSIDE AT THIS TIME
[2018-02-28] MEDS: PIPER/TAZO 3.375GM/D5W PREMIX 50 ML IV SCH ×3 (05:10→17:27)
[2018-02-28 05:25] LABS: BASOPHILS # (AUTO) 0.1 K/uL (0.00-0.22); BASOPHILS % (AUTO) 0.7 % (0.0-2.0); EOSINOPHILS # (AUTO) 0.3 K/uL (0-0.4); EOSINOPHILS % (AUTO) 3.4 % (0.0-4.0); HEMOGLOBIN 8.4 g/dL (12.0-18.0); LYMPHOCYTES # (AUTO) 1.3 K/uL (2.0-11.5); LYMPHOCYTES % (AUTO) 12.4 % (20.5-51.1); MEAN CORPUSCULAR HEMOGLOBIN 30 pg (27-31); MEAN CORPUSCULAR HGB CONC 32 g/dL (33-37); MEAN CORPUSCULAR VOLUME 91.8 fL (80-94); MONOCYTES # (AUTO) 0.7 K/uL (0.8-1.0); MONOCYTES % (AUTO) 6.8 % (1.7-9.3); NEUTROPHILS # (AUTO) 7.8 K/uL (1.8-7.7); NEUTROPHILS % (AUTO) 76.7 % (42.2-75.2); PLATELET COUNT (AUTO) 161 K/uL (140-450); RED BLOOD CELL COUNT(AUTO) 2.83 MIL/uL (4.20-6.10); RED CELL DISTRIBUTION WIDTH 20.1 % (11.6-13.7); WHITE BLOOD COUNT (AUTO) 10.2 K/uL (4.8-10.8)
[2018-02-28 06:07] LABS: ANION GAP 12.3 (8-16); CARBON DIOXIDE 25.8 mmol/L (21-32); POTASSIUM 3.1 mmol/L (3.5-5.1)
[2018-02-28] MEDS: BLOOD GLUCOSE MONITORING 1 DEV DEV FS SCH ×4 (06:42→21:20)
[2018-02-28] MEDS: INSULIN LISPRO SLIDING SCALE 100 UNITS/ML VIAL SUBQ PRN ×4 (06:43→21:27)
[2018-02-28] MEDS ORDERED: KCL 20 MEQ/WATER INJ PREMIX 200 ML IV ONE (06:50)
--- NOTE | 2018-02-28 06:52 | NUR ---
PAGED DR. ALLAN TO REPORT K 3.1. NEW ORDERS RECEIVED. K-RIDER 40 MEQ. WILL CONTINUE TO MONITOR.
--- NOTE | 2018-02-28 07:10 | NUR ---
RECEIVED PATIENT TRACH TO VENT ON SETTINGS: AC 18, 650, +5, 36%. TRACH PORTEX 8. AIRWAY SECURE AND PATENT. SUCTIONED SCANT AMOUNT OF THICK WHITE SECRETIONS. VENT CHECK DONE. VENT ALARMS ON AND AUDIBLE. VENT PLUGGED INTO RED OUTLET. AMBU BAG AT BEDSIDE. NO RESPIRATORY DISTRESS NOTED AT THIS TIME. WILL CONTINUE TO MONITOR.
--- NOTE | 2018-02-28 07:30 | NUR ---
RECEIVED BEDSIDE REPORT FROM NIGHT NURSE. PT IS NONVERBAL, UNABLE TO FOLLOW COMMANDS AND UNABLE TO MAKE NEEDS KNOWN. SINUS RHYTHM ON MONITOR. S1 S2 HEARD. PT IS TRACH TO VENT W/ SETTINGS: AC 18, FIO2 36%, VT 650, PEEP 5. NO SIGNS OF SOB OR RESPIRATORY DISTRESS NOTED. BREATHING EVEN AND UNLABORED. PICC LINE TO LEFT UPPER ARM ASYMPTOMATIC, PATENT AND INTACT, PT IS RECEIVING IV FLUID 0.9%NS AT 75 MLS/HR. UNDERWOOD CATH IN PLACE DRAINING URINE TO GRAVITY DRAINAGE BAG. SCD IN PLACE FOR VTE PROPHYLAXIS. SKIN IS NON INTACT (SEE WOUND ASSESSMENT). LEFT BKA AND RIGHT TOES AMPUTATED. NO S/SX OF ACUTE DISTRESS NOTED. AFEBRILE AND FLACC 0. HOB 30 DEGREES, BED IN LOWEST POSITION AND CALL LIGHT WITHIN REACH. WILL CONTINUE TO MONITOR. Addendum: 02/28/18 at 1302 by Orin Cruz RN PICC LINE PURPLE PORT IS NOT FLUSHING AND NO BLOOD RETURN NOTED. RED PORT IS PATENT W/ GOOD BLOOD RETURN.
--- NOTE | 2018-02-28 07:35 | NUR ---
PT SEEN AND EXAMINED BY DR. SCOTT. DR. SCOTT MADE AWARE OF H&H OF 8.4 AND 26.0. WILL FOLLOW UP WITH NEW ORDERS.
[2018-02-28] MEDS: PANTOPRAZOLE 40 MG INJ VIAL IVP SCH (08:41)
[2018-02-28] MEDS: FAMOTIDINE 20 MG/2 ML VIAL IV SCH ×2 (08:41→21:21)
[2018-02-28] MEDS: ASCORBIC ACID 500 MG/5 ML ORASYR GT SCH (08:41)
[2018-02-28] MEDS: LACTOBACILLUS RHAMNOSUS GG 1 EACH CAP PO SCH (08:41)
[2018-02-28] MEDS: ZINC SULF 220 MG CAP GT SCH (08:41)
[2018-02-28] MEDS: CALCITRIOL 0.25 MCG CAPLF PO SCH (08:41)
[2018-02-28] MEDS: ATORVASTATIN 20 MG TAB GT SCH (08:41)
--- NOTE | 2018-02-28 09:00 | NUR ---
MEDICATIONS ADMINISTERED ORDERED. PT TOLERATED WELL.
--- NOTE | 2018-02-28 09:10 | NUR ---
PT HAD MODERATE AMOUNT OF BOWEL MOVEMENT. CLEANED AND REPOSITIONED PT. STOOL COLLECTED FOR OCCULT BLOOD. PT TOLERATED WELL. NO S/SX OF DISTRESS NOTED.
[2018-02-28] MEDS: NACL 0.9% 1,000 ML IV SCH ×2 (09:20→15:25)
--- NOTE | 2018-02-28 09:27 | NUR ---
VENT CHECK DONE. NO RESPIRATORY DISTRESS NOTED AT THIS TIME. WILL CONTINUE TO MONITOR.
--- NOTE | 2018-02-28 11:10 | NUR ---
VENT CHECK DONE. SUCTIONED SMALL AMOUNT OF THICK WHITE SECRETIONS. NO DISTRESS NOTED AT THIS TIME. WILL CONTINUE TO MONITOR.
--- NOTE | 2018-02-28 11:30 | NUR ---
NO CHANGE IN CONDITION AT THIS TIME. VITAL SIGNS STABLE. NO ACUTE DISTRESS NOTED. WILL CONTINUE TO MONITOR.
--- NOTE | 2018-02-28 12:30 | NUR ---
TUBE FEEDING RESIDUALS 20 ML. PT IS RECEIVING TF AT GOAL RATE OF 63 ML/HR AT THIS TIME. WILL CONTINUE TO MONITOR.
[2018-02-28] MEDS: THERAHONEY GEL 42.5 GM TP SCH (12:37)
[2018-02-28] MEDS ORDERED: SKINTEGRITY HYDROGEL TP SCH (13:00)
--- NOTE | 2018-02-28 13:00 | NUR ---
VENT CHECK DONE. NO RESPIRATORY DISTRESS NOTED AT THIS TIME. WILL CONTINUE TO MONITOR.
--- NOTE | 2018-02-28 13:35 | NUR ---
DR. SCOTT NOTIFIED OF POSITIVE OCCULT BLOOD RESULT. HE WILL NOTIFY DR. CARTER OF CONSULT.
--- NOTE | 2018-02-28 14:15 | NUR ---
DR. CARTER IN TO SEE AND EXAMINE PT. WILL FOLLOW UP WITH NEW ORDERS.
--- NOTE | 2018-02-28 14:17 | NUR ---
PT SEEN AND EXAMINED BY DR. HANSON. WILL FOLLOW UP ON ORDERS.
--- NOTE | 2018-02-28 15:25 | NUR ---
DR. GOYAL IN TO SEE AND EXAMINE PT. DR. GOYAL MADE AWARE OF PT'S SWOLLEN ARM AND THAT ONE PORT OF PICC LINE IS NOT PATENT. ORDER RECEIVED. WILL FOLLOW UP WITH ANY NEW ORDERS.
--- NOTE | 2018-02-28 15:26 | NUR ---
02/28/18 RD INITIAL ASSESSMENT COMPLETED PLEASE REFER TO NUTRITION ASSESSMENT UNDER CARE ACTIVITY FOR ESTIMATED NUTRITIONAL NEEDS. RD RECOMMENDATIONS: 1. CONTINUE CURRENT TF GLUCERNA 1.2@63 MLS/HR (PROVIDES 1814 KCALS, 91 G PROTEIN; SUFFICIENT TO MEET PT DAILY ESTIMATED NUTRITIONAL NEEDS) 2. RD F/U 2-3 DAYS; HIGH RISK SAGRARIO SCHMIDT MBA, RD
--- NOTE | 2018-02-28 17:00 | NUR ---
TOLERATING TUBE FEEDING WELL. RESIDUAL 20 ML.
--- NOTE | 2018-02-28 17:10 | NUR ---
US VENOUS L UPPER EXTREMITY BEING DONE AT THIS TIME. PT TOLERATING WELL. VSS. NO S/SX OF ACUTE DISTRESS NOTED.
--- NOTE | 2018-02-28 18:05 | NUR ---
PT HAD A SMALL AMOUNT OF BOWEL MOVEMENT. CLEANED AND REPOSITIONED. NO S/SX OF ACUTE DISTRESS NOTED. VSS. SAFETY PRECAUTIONS IN PLACE.
--- NOTE | 2018-02-28 19:23 | NUR ---
REPORT GIVEN TO NIGHT NURSE FOR CONTINUITY OF CARE. PT IS IN STABLE CONDITION.
--- NOTE | 2018-02-28 19:30 | NUR ---
RECEIVED REPORT FROM MORNING RN FOR CONTINUITY OF CARE. VS STABLE AT THIS TIME. UNABLE TO MAKE NEEDS KNOWN. FLACC 0. S1+S2 HEARD. PULSES ARE PALPABLE IN ALL EXTREMITIES. LUNG SOUNDS COARSE. TRACH TO VENT WITH SETTINGS: FIO2 35%, TV 650, R18, AND PEEP 5. NO SIGNS OF RESPIRATORY DISTRESS NOTED. ABDOMEN ROUND, SOFT AND NONDISTENDED. GTUBE TO FEEDING WITH RESIDUAL AT 10ML. NO BM NOTED AT THIS TIME. UNDERWOOD CATHETER IN PLACE AND DRAINING CLEAR AND YELLOW URINE. PT STILL HAS ABRAN PICC LINE. RECEIVED PT WITH NS AT 75ML/HR. ALL SAFETY PRECAUTIONS ARE IN PLACE. WILL CONTINUE TO MONITOR PT.
[2018-02-28] MEDS: VANCOMYCIN 750 MG in NACL 0.9% 250 ML IV SCH (21:20)
[2018-02-28] MEDS ORDERED: levETIRAcetam 100 MG/ML VIAL IV ONE (21:20)
--- NOTE | 2018-02-28 21:40 | NUR ---
VS STILL STABLE AT THIS TIME. BG 173 AND INSULIN COVERAGE GIVEN. PT STILL ON GTUBE FEEDING. SCD IN PLACE. WILL CONTINUE TO MONITOR
[2018-02-28] MEDS ORDERED: levETIRAcetam 100 MG/ML ORASYR ONE (21:42)
--- NOTE | 2018-02-28 23:25 | NUR ---
NO CHANGE IN PT CONDITION AT THIS TIME. ALL SAFETY PRECAUTIONS ARE IN PLACE. GTUBE RESIDUAL AT THIS TIME WAS 30ML. TOLERATING FEEDING WELL.
[2018-03-01] VITALS (14 sets, daily range): BP systolic 94–148; BP diastolic 43–94
[2018-03-01] MEDS: PIPER/TAZO 3.375GM/D5W PREMIX 50 ML IV SCH ×5 (00:30→20:36)
[2018-03-01] MEDS: Z-GUARD PASTE TP SCH ×2 (01:43→13:13)
--- NOTE | 2018-03-01 02:01 | NUR ---
RESPIRATIONS EVEN AN UNLABORED. SINUS TACHYCARDIA AT THIS TIME ON MONITOR. COUGHS OCCASIONALLY BUT NO SIGNS OF RESPIRATORY DISTRESS NOTED.
--- NOTE | 2018-03-01 04:10 | NUR ---
MORNING CARE PROVIDED TO PT. CATHETER AND VAP ORAL CARE PROVIDED. VS STABLE AT THIS TIME. FLACC 0. NO SIGNS OF ANY DISCOMFORT AT THIS TIME. PT TOLERATED BEING TURNED AND REPOSITIONED. PT HAD 1 LARGE BM THAT IS BROWNISH GREEN IN COLOR.
[2018-03-01] MEDS: levETIRAcetam 100 MG/ML ORASYR GT SCH ×3 (04:41→20:39)
[2018-03-01] MEDS: VALPROATE SODIUM 1,000 MG in NACL 0.9% 100 ML IV SCH ×3 (04:41→21:12)
[2018-03-01] MEDS: BLOOD GLUCOSE MONITORING 1 DEV DEV FS SCH ×4 (06:58→20:36)
[2018-03-01] MEDS: INSULIN LISPRO SLIDING SCALE 100 UNITS/ML VIAL SUBQ PRN ×3 (06:59→16:39)
[2018-03-01 07:10] LABS: BASOPHILS % (AUTO) 0.4 % (0.0-2.0); EOSINOPHILS # (AUTO) 0.3 K/uL (0-0.4); HEMATOCRIT 24.6 % (36-52); HEMOGLOBIN 8.1 g/dL (12.0-18.0); LYMPHOCYTES # (AUTO) 1.2 K/uL (2.0-11.5); LYMPHOCYTES % (AUTO) 12.7 % (20.5-51.1); MEAN CORPUSCULAR HEMOGLOBIN 31 pg (27-31); MEAN CORPUSCULAR HGB CONC 33 g/dL (33-37); MEAN CORPUSCULAR VOLUME 92.7 fL (80-94); MONOCYTES # (AUTO) 0.6 K/uL (0.8-1.0); MONOCYTES % (AUTO) 6.7 % (1.7-9.3); NEUTROPHILS # (AUTO) 7.1 K/uL (1.8-7.7); NEUTROPHILS % (AUTO) 77.2 % (42.2-75.2); PLATELET COUNT (AUTO) 151 K/uL (140-450); RED BLOOD CELL COUNT(AUTO) 2.65 MIL/uL (4.20-6.10); RED CELL DISTRIBUTION WIDTH 20.1 % (11.6-13.7); WHITE BLOOD COUNT (AUTO) 9.2 K/uL (4.8-10.8)
--- NOTE | 2018-03-01 07:20 | NUR ---
REPORT GIVEN TO MORNING RN FOR CONTINUITY OF CARE. VS STABLE AT THIS TIME.
--- NOTE | 2018-03-01 07:21 | NUR ---
RECEIVED REPORT FROM FUEL SYSTEM MAINTENANCE WORKER RN AT BEDSIDE, PT IS LETHARGIC, APHASIC, NOT ABLE TO FOLLOW COMMAND AND MAKE NEEDS KNOWN. VSS, FLACC 0. TRACH TO VENT WITH SETTING FIO2 35, TV 650, R 18, PEEP 5, NO S/S SOB/DISTRESS, CLEAR LUNG SOUNDS EMERSON. ST ON SPORTS PSYCHOLOGIST, SOFT ABDOMEN WITH ACTIVE BOWEL SOUNDS, GT IN PLACE FEEDING WITH GLUCERNA AT 63 ML/HR, TOLERATED WELL, 0ML RESIDUALS, CONTINENT, UNDERWOOD CATHETER IN PLACE WITH CLEAR YELLOW URINE VIA GRAVITY, SEVERE WEAKNESS TO ALL EXTREMITIES, SKIN IS WARM AND DRY TO TOUCH, OPEN WOUND NOTED, (SEE WOUND ASSESSMENT), LEFT BKA, RIGHT TOES AMPUTATION NOTED. PICC LINE TO ABRAN, PATENT, RUNNING NS AT 75ML/HR, POSITION CHANGED FOR OFF LOAD PRESSURE, HOB ELEVATED 30 DEGREES, SAFETY MEASURES IN PLACE, WILL CONTINUE TO MONITOR.
--- NOTE | 2018-03-01 07:27 | NUR ---
RECEIVED TRACH PT ON VENT WITH A PORTEX 8 TRACH. SETTINGS AC 18, VT 650, PEEP 5 AND FIO2 35%. PT SUCTIONED OBTAINED SMALL AMOUNT OF THICK WHITE SECRETIONS, AIRWAY IS PATENT AND TRACH IS SECURE. PT IS NOT AWAKE AT THIS TIME BUT IS NOT IN ANY DISTRESS. VENT IS PLUGGED INTO A RED OUTLET WITH ALARMS ON AND FUNCTIONING. AMBU BAG IS PRESENT AT BEDSIDE. WILL CONTINUE TO MONITOR.
[2018-03-01 07:29] LABS: ANION GAP 13.5 (8-16); CARBON DIOXIDE 23.9 mmol/L (21-32); POTASSIUM 3.4 mmol/L (3.5-5.1); TOTAL BILIRUBIN 0.2 mg/dL (0.0-1.0)
[2018-03-01] MEDS: VANCOMYCIN 750 MG in NACL 0.9% 250 ML IV SCH ×2 (07:58→22:56)
[2018-03-01] MEDS: ASCORBIC ACID 500 MG/5 ML ORASYR GT SCH (08:10)
[2018-03-01] MEDS: PANTOPRAZOLE 40 MG INJ VIAL IVP SCH (08:10)
[2018-03-01] MEDS: ZINC SULF 220 MG CAP GT SCH (08:10)
[2018-03-01] MEDS: ATORVASTATIN 20 MG TAB GT SCH (08:10)
[2018-03-01] MEDS: FAMOTIDINE 20 MG/2 ML VIAL IV SCH ×2 (08:10→20:38)
[2018-03-01] MEDS: LACTOBACILLUS RHAMNOSUS GG 1 EACH CAP PO SCH (08:10)
[2018-03-01] MEDS: CALCITRIOL 0.25 MCG CAPLF PO SCH (08:11)
--- NOTE | 2018-03-01 08:45 | NUR ---
SCHEDULED MEDICATION GIVEN VIA GT, PT TOLERATED WELL.
--- NOTE | 2018-03-01 10:00 | NUR ---
NO S/S OF DISTRESS, VSS, FLACC 0, POSITION CHANGED FOR OFF LOAD PRESSURE.
--- NOTE | 2018-03-01 11:33 | NUR ---
PT SUCTIONED OBTAINED SMALL AMOUNT OF THICK WHITE SECRETIONS, AIRWAY IS PATENT AND TRACH IS SECURE. PT IS AWAKE BUT NOT ALERT. PT IS NOT IN ANY DISTRESS AT THIS TIME. WILL CONTINUE TO MONITOR.
[2018-03-01] MEDS: NACL 0.9% 1,000 ML IV SCH (11:54)
--- NOTE | 2018-03-01 12:00 | NUR ---
NO S/S OF DISTRESS, VSS, FLACC 0, ORAL CARE PROVIDED, POSITION CHANGED FOR OFF LOAD PRESSURE.
--- NOTE | 2018-03-01 12:05 | NUR ---
WOUND CARE EVALUATION PENDING, DR. CARTER IS AT BED SIDE, CHARGE NURSE FRANCES REPORT THE COCCYX WOUND IS RESPONDING TO TREATMENT WELL. WILL VISIT PT. LATER.
--- NOTE | 2018-03-01 12:10 | NUR ---
DR. CARTER CAME IN TO SEE PT, NO NEW ORDER AT THIS TIME.
--- NOTE | 2018-03-01 13:08 | NUR ---
FIO2 TITRATED TO 30%. PT NOT IN ANY DISTRESS OR SOB AT THIS TIME. WILL CONTINUE TO MONITOR.
[2018-03-01] MEDS: THERAHONEY GEL 42.5 GM TP SCH (13:13)
[2018-03-01] MEDS ORDERED: PROBIOTIC SCREEN 1 EA MISC MC PRN (13:25)
[2018-03-01] MEDS: LORazepam 2 MG/ML VIAL IVP PRN (13:36)
--- NOTE | 2018-03-01 14:40 | NUR ---
DR. GOYAL CAME IN TO SEE PT, INFORMED US TO ASK DR. SCOTT IF IT IS OK TO DISCHARGE PT BACK TO NURSE HOME, PAGED DR. SCOTT, THE DISABILITY HEARING OFFICER SAID DR. PUENTE IS MOTOR BUS DRIVER TODAY, PAGED DR. PUENTE, WAITING FOR CALL BACK.
--- NOTE | 2018-03-01 15:53 | NUR ---
ADMISSION CHART REVIEW DONE SPOKE WITH MEDARDO FROM [facility]. INFORMED HER THAT I HAD ORDER FOR DISCHARGE TO SNF. [place] CALL[place] [facility] [place] FA[place] INFORMATION TO HER INCLUDING THE MICROS. I SPOKE WITH MEDARDO FROM [facility]. FAXED HER THE ER REPORT, H&P, CONSULT, PROGRESS NOTE. AND MED SHEETS TO HER AT [phone]. MEDARDO SAID FOR TRANSPORT BY [facility], AUTH NUMBER IS [id number].
--- NOTE | 2018-03-01 16:00 | NUR ---
NO S/S OF DISTRESS, VSS, FLACC 0, PM CARE AND UNDERWOOD CARE PROVIDED, ORAL CARE PROVIDED, POSITION CHANGED FOR OFF LOAD PRESSURE.
--- NOTE | 2018-03-01 16:13 | NUR ---
I TOLD BRADF[place] [facility] [place] GET [place] BED TO CALL ICU.
--- NOTE | 2018-03-01 17:00 | NUR ---
PT TRANSFERRED TO TELE ROOM 122B VIA BED WITH RN AND RT, VSS, FLACC 0, ALL BELONGINGS GOES WITH PT.
--- NOTE | 2018-03-01 17:12 | NUR ---
PT MANUALLY VENTILATED TO TELEMETRY UNIT WITHOUT INCIDENT. PT PLACED BACK ON VENTILATOR WITH DOCUMENTED VENT SETTINGS. PT IS NOT IN ANY DISTRESS AT THIS TIME. VENT CHECK COMPLETED. VENT ALARMS REMAIN ON AND FUNCTIONING.
--- NOTE | 2018-03-01 17:15 | NUR ---
CRITICAL LAB RESULT OBTAINED FOR MDRO/STEAM PLANT OPERATOR SPUTUM, ECOLI/ESBL WOUND, YEAST URINE, DR. HART COVER DR. GOYAL AT THIS TIME, WAITING FOR CALL BACK.
--- NOTE | 2018-03-01 18:19 | NUR ---
DR. HART CALLED BACK, REPORT OF CRITICAL LAB OF MDRO SPUTUM, ECOLI/ESBL WOUND, NO CHANGE OF ORDER AT THIS TIME.
[2018-03-01] MEDS ORDERED: POTASSIUM CHLORIDE 20% 40 MEQ/15 ML UDC GT SCH (18:30)
--- NOTE | 2018-03-01 19:23 | NUR ---
REPORT GIVEN TO LAW ENFORCEMENT DIRECTOR RN AT BEDSIDE FOR CONTINUE OF CARE, PT IS IN STABLE CONDITION AT THIS TIME.
--- NOTE | 2018-03-01 19:23 | NUR ---
RCV'D PT ON MECHANICAL VENTILATION WITH CHARTED SETTINGS. PT IS TRACHED WITH PORTEX 8. TRACH IS IN PLACE AND SECURED. THERE IS A WOUND UNDER TRACH SITE BUT NOT IN STOMA SITE THAT IS COVERED WITH GUAZE. PT IS ASLEEP COMFORTABLY. SXN'D SMALL AMT OF WHITE THIN SECRETIONS. COARSE BREATH SOUNDS. AMBU BAG AT BEDSIDE. VENT IS CONNECTED TO RED OUTLET. ALARMS AUDIBLE. DECREASED FIO2 TO 24% SPO2 STILL 100%. NO SOB OR DISTRESS NOTED. CONSTANZA AGUILERA AT BEDSIDE. WILL CONTINUE TO MONITOR.
--- NOTE | 2018-03-01 19:30 | NUR ---
RECEIVED REPORT FROM DAYSHIFT NURSE AT BEDSIDE FOR CONTINUITY OF CARE.ISOLATION: URINE=YEAST. SPUTUM = MDRO+INTRAOPERATIVE NEURO TECH. WOUND = E-COLI + ESBL. PT SLEEPING NON VERBAL/ APHASIC. IV NOTED ABRAN PICC LINE DOUBLE LUMEN, ONLY ONE PORT FLUSHES NS AT 75ML/INFUSING. NO SOB NO S/S OF DISTRESS ON [id number] 24% VT 650 PEEP 5. TUBE FEEDING GLUCERNA 1.2 RATE 63 ML/HR AND H2O 250ML/HR. UNDERWOOD IN PLACE. BED LOWERED, BED PADDED FOR SEIZURE PRECAUTION. CALL LIGHT WITHIN REACH WILL CONTINUE TO MONITOR.
--- NOTE | 2018-03-01 20:30 | NUR ---
PT TUBE FEEDING TOLERATING WELL RESIDUAL 5ML. WILL CONTINUE TO MONITOR.
[2018-03-01] MEDS ORDERED: VANCOMYCIN 1,000 MG VIAL ONE (20:35)
[2018-03-01] MEDS ORDERED: PIPERACILLIN/TAZOBACTAM 3.375 GM VIAL IV ONE (20:35)
--- NOTE | 2018-03-01 21:00 | NUR ---
PT IN NEED OF SUCTIONING. WILL SUCTION SPUTUM WHITE. WILL CONTINUE TO MONITOR.
--- NOTE | 2018-03-01 23:00 | NUR ---
NO SOB NO S/S OF DISTRESS ON TRACH TO VENT WILL CONTINUE TO MONITOR.
[2018-03-02] VITALS: BP 117/70
[2018-03-02] MEDS: LORazepam 2 MG/ML VIAL IVP PRN ×2 (01:19→16:05)
[2018-03-02] MEDS: NACL 0.9% 1,000 ML IV SCH ×2 (01:20→14:40)
[2018-03-02] MEDS: Z-GUARD PASTE TP SCH ×3 (01:36→23:04)
--- NOTE | 2018-03-02 02:20 | NUR ---
ADMIN ADIVAN 1 HR FOR AGITATION. PT MORE RELAXED AND IS SLEEPING WILL CONTINUE TO MONITOR.
[2018-03-02 04:00] VITALS: BP 98/58
[2018-03-02] MEDS: levETIRAcetam 100 MG/ML ORASYR GT SCH ×3 (04:09→20:25)
[2018-03-02] MEDS: VALPROATE SODIUM 1,000 MG in NACL 0.9% 100 ML IV SCH ×2 (04:16→13:47)
[2018-03-02] MEDS: PIPER/TAZO 3.375GM/D5W PREMIX 50 ML IV SCH ×4 (05:38→23:03)
[2018-03-02] MEDS: BLOOD GLUCOSE MONITORING 1 DEV DEV FS SCH ×4 (05:38→20:13)
[2018-03-02] MEDS: INSULIN LISPRO SLIDING SCALE 100 UNITS/ML VIAL SUBQ PRN ×2 (05:39→18:06)
--- NOTE | 2018-03-02 06:29 | NUR ---
RECEIVED PT ON [place] ON DOCUMENTED SETTINGS PTS TRACH PORTEX 8 IS SECURE PT IN HF ASLEEP BS COARSE SX COPIOUS WHITE SECRETIONS BMV HOB VENT PLUGGED INTO RED OUTLET CONT. POX IN PLACE Addendum: 03/02/18 at 0732 by Valarie Mora RT ALARMS ARE ON AND AUDIBLE
--- NOTE | 2018-03-02 07:49 | NUR ---
ENDORSED REPORT TO DAYSMEFT NURSE FOR CONTINUITY OF CARE.
--- NOTE | 2018-03-02 07:49 | NUR ---
RECEIVED REPORT FRO TACTICAL INTELLIGENCE OFFICER. PT RESTING IN BED. SPONTANEOUS EYES OPENING, NON-VERBAL, RESPONSE TO PAIN STIMULI. SKIN DRY AND WARM TO TOUCH. ON TRACH TO VENT AC 18 FIO2 24% TV 650 PEEP 5. LUNGS CLEAR ON AUSCULTATION. OPEN SKIN ON MID UPPER CHEST, COVERED WITH FOAM DRESSING. PICC LINE ON MARCIAL DOUBLE LUMEN FLUSHES WELL. NS RUNNING AT 75 ML/HR. G-TUBE NOTED ON LUQ. 0 RESIDUAL. ABDOMEN SOFT, ROUND AND NON-TENDER. ACTIVE BOWEL SOUND. PT ON G-TUBE FEEDING GLUCERNA 1.2 RUNNING AT 63 ML/HR. RIGHT FOOT ALL FINGERS AMPUTEE. BKA ON LEFT LEG, REDNESS PRESENT ON THE SITE. EDEMA PRESENT ON BOTH UPPER AND LOWER EXTREMITIES. KEPT EXTREMITIES ELEVATED. KEPT HOB ELEVATED. BED IN LOW POSITION LOCKED. WILL CONTINUE TO MONITOR.
[2018-03-02 08:00] VITALS: BP 134/65
[2018-03-02] MEDS ORDERED: FOAM DRESSING TP SCH (09:00)
[2018-03-02] MEDS: ASCORBIC ACID 500 MG/5 ML ORASYR GT SCH (10:03)
[2018-03-02] MEDS: ATORVASTATIN 20 MG TAB GT SCH (10:03)
[2018-03-02] MEDS: ZINC SULF 220 MG CAP GT SCH (10:04)
[2018-03-02] MEDS: FAMOTIDINE 20 MG/2 ML VIAL IV SCH ×2 (10:04→20:22)
[2018-03-02] MEDS: PANTOPRAZOLE 40 MG INJ VIAL IVP SCH (10:05)
[2018-03-02] MEDS: CALCITRIOL 0.25 MCG CAPLF PO SCH (10:05)
[2018-03-02] MEDS: LACTOBACILLUS RHAMNOSUS GG 1 EACH CAP PO SCH (10:05)
--- NOTE | 2018-03-02 10:05 | NUR ---
RESIDUAL 0. ADMINISTERED MEDICINE PER SCHEDULE. TOLERATING WELL.
--- NOTE | 2018-03-02 10:33 | NUR ---
CALLED FABIOLA AT [facility] [place]. NO ISO BED TODAY, MAYBE END OF WEEK,.
--- NOTE | 2018-03-02 11:20 | NUR ---
WOUND DRESSING DONE. ORAL CARE PROVIDED. REPOSITIONED. KEPT PT CLEAN AND DRY. VS WNL. WILL CONTINUE TO MONITOR.
--- NOTE | 2018-03-02 11:57 | NUR ---
RESTING IN BED. NO CHANGE IN LOC. VS WNL. WILL CONTINUE TO MONITOR.
[2018-03-02 12:00] VITALS: BP 136/86
[2018-03-02] MEDS: THERAHONEY GEL 42.5 GM TP SCH (12:10)
--- NOTE | 2018-03-02 13:50 | NUR ---
ADMINISTERED MEDICINE PER SCHEDULE. PT SLEEPING IN BED COMFORTABLY. NO ACUTE RESP DISTRESS NOTED. WILL CONTINUE TO MONITOR.
--- NOTE | 2018-03-02 14:51 | NUR ---
RECEIVED ORDER THAT PATIENT CAN GO BACK TO [facility], NO ISOLATION, PATIENT COLONIZED. I INFORMED BRADFORD AT [facility] AND FAXED ORDER.
--- NOTE | 2018-03-02 14:59 | NUR ---
VENT CHECK, NO SXN NEEDED AIRWAY PATENT AND PT IS SLEEPING
--- NOTE | 2018-03-02 15:44 | NUR ---
SPOKE WITH [place] [facility] [place] SHE SAID THE PATIENT CAN GO TO ROOM 26A UNDER DR. SAL AFTER 7P.M. I INFORMED MEDARDO AT [facility]. THE AUTH FOR [facility] TRANSPORT IS [id number]. I INFORMED KAROLINE RESPIRATORY CARE FACULTY NURSE AND SHE WILL ARRANGE TRANSPORT.
--- NOTE | 2018-03-02 15:58 | NUR ---
[facility] TRANSPORT ARRANGED FOR 2230 MEDIA ASSISTANT.
[2018-03-02 16:00] VITALS: BP 145/74
--- NOTE | 2018-03-02 16:15 | NUR ---
RESTING IN BED COMFORTABLY. SEIZURE STOPPED.
--- NOTE | 2018-03-02 16:16 | NUR ---
PT HAD EPISODE OF SEIZURE LASTING MORE THAN 10 MINS, ADMINISTERED ATIVAN ORDERED. DR. GOYAL MADE AWARE. PAGED DR. HANSON. Addendum: 03/02/18 at 1621 by Sabrina Michel RN WAITING FOR CALL BACK.
--- NOTE | 2018-03-02 17:02 | NUR ---
DR HANSON CALLED AT [phone], NOTIFIED OF PT'S SZ ACTIVITY, DEPACON DOSE INCREASED TO 1250MG Q8H IVPB, PT MUST BE SZ FREE FOR 24 HRS BEFORE DC BACK TO [facility] [place].
--- NOTE | 2018-03-02 17:07 | NUR ---
[facility] TRANSPORT CANCELLED, PLACED ON WILL CALL.
--- NOTE | 2018-03-02 17:10 | NUR ---
REPORT GIVEN TO CONSTANZA KIM FOR CONTINUITY OF CARE. PT ON STABLE CONDITION.
--- NOTE | 2018-03-02 17:11 | NUR ---
RECEIVED REPORT FROM CONSTANZA ANDERS. PATIENT LYING DOWN IN BED IN STABLE CONDITION. WILL CONTINUE TO MONITOR.
--- NOTE | 2018-03-02 17:12 | NUR ---
CALLED BROTHER NATIVIDAD DECKER TO UPDATE PT DISCHARGE STATUS LEFT MESSAGE TO CALL BACK. WAITING FOR CALL.
--- NOTE | 2018-03-02 17:30 | NUR ---
PATIENT'S BROTHER CALLED. NOTIFIED HIM OF PATIENT'S DISCHARGE TO [facility] HAS BEEN CANCELLED DUE TO PATIENT HAVING [address] HANSON ORDERS[address] BROTHER VERBALIZED UNDERSTANDING. WILL CONTINUE TO MONITOR.
--- NOTE | 2018-03-02 19:30 | NUR ---
GAVE REPORT TO ORTHOPEDIC RN NURSE FOR CONTINUITY OF CARE. PATIENT IN STABLE CONDITION.
--- NOTE | 2018-03-02 19:31 | NUR ---
RECEIVED REPORT FROM CONSTANZA KIM. PT RESTING COMFORTABLY IN BED. PT IS ON TRACH TO VENT :FIO2 24%, 650VT, RR18, PEEP 5. PT HAS A UNDERWOOD CATH IN PLACE DRAINING YELLOW URINE. PT WITH GTUBE FEEDING GLUCERNA AT 65ML/HR. PT WITH LEFT BKA AND R FOOT ALL TOES AMPUTEE, PT HAS EDEMA ON BLE AND BUE. PT WITH LEFT PICC LINE DOUBLE LUMEN. INFUSING NS AT 75ML/HR. PT HAS SKIN TEAR ON ANTERIOR CHEST. AND WOUND ON SACRAL. BED ALARM IS ON AND ON LOWEST POSITION. PT ON CONTACT ISOLATION. ASPIRATION, SEIZURE, FALL PROTOCOL IN PLACE.
[2018-03-02 19:54] VITALS: BP 118/65
--- NOTE | 2018-03-02 20:40 | NUR ---
DUE MEDICATIONS GIVEN PT TOLERATED WELL. PT HAD 40ML OF RESIDUAL. PROVIDED ORAL CARE AND SUCTION PT. PT TOLERATED WELL. HOB ELEVATED. SAFETY MEASURES IN PLACE.
[2018-03-02] MEDS ORDERED: VANCOMYCIN 1GM/DEXT 5% PREMIX 200 ML IV SCH (21:00)
[2018-03-02] MEDS ORDERED: VANCOMYCIN 1,250 MG in DEXTROSE 5% 250 ML IV SCH (21:00)
[2018-03-02] MEDS: NACL 0.9% IV SCH (21:49)
[2018-03-02] MEDS: VALPROATE SODIUM IV SCH (21:49)
--- NOTE | 2018-03-02 22:48 | NUR ---
PT RESTING COMFORTABLY IN BED. NO DISTRESS NOTED AT THIS TIME. SAFETY MEASURES IN PLACE.
[2018-03-03] VITALS (7 sets, daily range): BP systolic 119–138; BP diastolic 67–81
--- NOTE | 2018-03-03 02:00 | NUR ---
ORAL CARE DONE AND SUCTION PT. PT TOLERATED WELL. NO SIGNS OF DISTRESS. ALL SAFETY MEASURES ARE IN PLACE WILL CONTINUE TO MONITOR.
--- NOTE | 2018-03-03 04:00 | NUR ---
DUE MEDICATIONS GIVEN. PT WAS CLEANED AND LINEN CHANGED AND WOUND CARE PROVIDED. PT TOLERATED WELL. SAFETY MEASURES IN PLACE WILL CONTINUE TO MONITOR.
[2018-03-03] MEDS: NACL 0.9% 1,000 ML IV SCH (04:55)
[2018-03-03] MEDS: NACL 0.9% IV SCH ×2 (04:56→14:33)
[2018-03-03] MEDS: VALPROATE SODIUM IV SCH ×2 (04:56→14:33)
[2018-03-03] MEDS: levETIRAcetam 100 MG/ML ORASYR GT SCH ×2 (04:56→12:33)
[2018-03-03] MEDS: PIPER/TAZO 3.375GM/D5W PREMIX 50 ML IV SCH ×2 (05:33→12:32)
[2018-03-03] MEDS: BLOOD GLUCOSE MONITORING 1 DEV DEV FS SCH ×2 (06:23→12:25)
--- NOTE | 2018-03-03 07:28 | NUR ---
ENDORSED PT TO ARISTEO RN. PT IN STABLE CONDITION. SAFETY MEASURES IN PLACE.
--- NOTE | 2018-03-03 07:29 | NUR ---
RECEIVED BEDSIDE REPORT FROM TAX RECORD CLERK NURSE. PATIENT IS SLEEPING. HE IS APHASIC. PATIENT IS BEDBOUND. TRACH TO VENT. SETTINGS AT FIO2 24, VT 650, RR 18 FLOW 50, PEEP 5. GTUBE FEEDING AT GLUCERNIA 1.2 63ML H20 FLUSH 250 ML Q4HRS. UNDERWOOD CATH IN PLACE. PICC LINE ABRAN, L ARM SHOWS SIGNS OF INFILTRATION. STOPPED THE IVF. SEIZURE, FALL, ASPIRATION PRECAUTIONS IN PLACE. PATIENT HAS L BKA, R FOOT ALL TOES AMPUTATED. PATIENT HAS PRESSURE WOUNDS, SACRAL AND CHEST SKIN TEAR. DRESSINGS ARE INTACT, CLEAN AND DRY. BED IN LOW POSITION. BED ALARM ON. WILL CONTINUE TO MONITOR THE PATIENT.
--- NOTE | 2018-03-03 07:36 | NUR ---
PATIENT RESTING CALMLY. NURSE AT BEDSIDE. VENT SETTINGS ORDERED: 12, 650, +5, 24%. VENT ALARMS ON AND AUDIBLE. VENT PLUGGED INTO RED OUTLET. TRACH PATENT, CLEAN AND DRY. BREATH SOUNDS CLEAR AND PEAK PRESSURES AT 25- NO INDICATION FOR SUCTIONING. VITALS STABLE AT 99%, PULSE 85, RATE 18.
[2018-03-03] MEDS: ATORVASTATIN 20 MG TAB GT SCH (08:56)
[2018-03-03] MEDS: ASCORBIC ACID 500 MG/5 ML ORASYR GT SCH (08:57)
[2018-03-03] MEDS: CALCITRIOL 0.25 MCG CAPLF PO SCH (08:58)
[2018-03-03] MEDS: ZINC SULF 220 MG CAP GT SCH (08:59)
[2018-03-03] MEDS: LACTOBACILLUS RHAMNOSUS GG 1 EACH CAP PO SCH (09:00)
--- NOTE | 2018-03-03 09:07 | NUR ---
CHECKED FOR PLACEMENT USING SWOOSH. 50ML RESIDUAL PLACED BACK IN PATIENT. CRUSHED AND ADMINISTERED MEDS. FLUSHED. PATIENT TOLERATED WELL. WILL CONTINUE TO MONITOR THE PATIENT. BED IN LOW POSITION. BED ALARM IS ON
--- NOTE | 2018-03-03 10:05 | NUR ---
WOUND CARE EVALUATION NOTE: REASON FOR EVALUATION: LOW BRENNA SCORE AND PRESSURE INJURY WOUNDS SKIN ASSESSMENT DONE WITH THIS 52 Y/O MALE PT AD[place] [facility] [place] [facility] WITH INITIAL DX ANEMIA. PT. ADMITTED WITH SACRALCOCCYX PRESSURE INJURY. PAST MEDICAL HX INCLUDES HTN, DM, AND CHRONIC TRACH WITH VENT, G-TUBE AND SEIZURE. ALL ABOVE INFORMATION OBTAINED FROM ADMISSION H&P. LABS ARE WBC 9.2, H/H 8.1/24.6, GLUCOSE 197 AND ALBUMIN 1.0. PT SKIN IS WARM AND DRY, RIGHT AND LEFT UPPER EXTREMITIES EDEMA. HX OF LEFT BKA AND RIGHT TMA .INCONTINENT OF BOWEL AND F/C PATENT WITH MODERATE AMOUNT PREM COLOR URINE OUTPUT. PLAN OF CARE DISCUSSED WITH PRIMARY RN. INTEGUMENTARY: -TRACH SITE TJ STOMA SKIN NEW THIN SCAR FORMATION 2X2CM, AREA IS DRY, PINK IN COLOR - GT SITE TJ STOMA SKIN WITH SKIN INTACT. -ABDOMEN DISTENDED WITH HEALED OLD SCAR -INCONTINENT ASSOCIATE DERMATITIS (IAD) REDNESS TO: R/L GROINS EXTENDED TO POSTERIOR SCROTUM, SKIN INTACT -RIGHT LOWER BACK (ABOVE SACRALCOCCYX) PRESSURE INJURY UN-STAGEABLE 2X3 CM WOUND BED 100% YELLOW SLOUGH, TJ-WOUND DENUDED, SURROUNDING REDNESS AREA 4X5 CM FURTHER DAMAGE INDICATED, TJ-WOUND SKIN MAY DIFFUSED WITH SACRALCOCCYX JT-WOUND DENUDED SKIN. -PRESSURE INJURY STAGE 3 TO SACROCOCCYX EXTENDED TO LEFT/ RIGHT BUTTOCKS, BUTTERFLY SHAPE WITH TJ-WOUND DENUDED SKIN AREA MEASURE 8X12X0.3 CM, FURTHER DAMAGE INDICATED WOUND BED LIGHT YELLOW, TJ WOUND SKIN DENUDED, WITH MULTIPLE SKIN EROSIONS, AREAS MOIST, NO ODOR. -LEFT BKA STUMP OLD HEALED SCAR -RIGHT TMA OLD HEALED SCAR RECOMMENDATIONS: -RECTAL BAG FOR MOISTURE CONTROL AND WOUND CARE -KEEP SKIN DRY AND CLEAN AT ALL TIMES, PLEASE CHECK Q2H AND PRN FOR MEDICAL DEVICES TUBING POSITIONING -APPLY Z-GUARD TO IAD R/L GROINS EXTENDED TO POSTERIOR SCROTUM BID AND PRN IF SOILING - TRACH SITE TJ STOMA SKIN COVER WITH DRY DRESSING QD AND PRN IF SOILING - CLEANSE SACRALCOCCYX WITH NS AND APPLY THERAHONEY TO WOUND BED AND Z-GUARD TO PERIWOUND COVER WITH DRY DRESSING QD AND PRN IF SOILING -APPLY HEEL PROTECTOR TO LEFT BKA STUMP AND RIGHT TMA -OFFLOAD BILATERAL LOWER EXTREMITIES BY PLACING PILLOWS UNDER CALVES UNLESS OTHERWISE CONTRAINDICATED -PRESSURE REDISTRIBUTION SURFACE THERAPY -TURN AND REPOSITION Q2H, OFFLOAD SACRALCOCCYX AND BUTTOCKS BY TURNING RIGHT AND LEFT -CONTINUE TO FOLLOW RD RECOMMENDATIONS ALL ABOVE RECOMMENDATIONS DISCUSSED WITH PRIMARY RN. WILL FOLLOW UP PT Q7-10 DAYS. PLEASE CONTACT WOUND CARE NURSE FOR ANY QUESTION AND CHANGE OF WOUND CONDITION.
--- NOTE | 2018-03-03 10:20 | NUR ---
PERFORMED WOUND CARE W WOUND CARE NURSETASH. ALL DRESSINGS CHANGED. CLEAN AND INTACT. RECTAL BAG PLACED
[2018-03-03] MEDS ORDERED: VANCOMYCIN PER PHARMACY MC PRN (10:40)
[2018-03-03] MEDS: FAMOTIDINE 20 MG/2 ML VIAL IV SCH (12:26)
[2018-03-03] MEDS: PANTOPRAZOLE 40 MG INJ VIAL IVP SCH (12:28)
--- NOTE | 2018-03-03 12:36 | NUR ---
CHECKED FOR GTUBE PLACEMENT USING SWOOSH. RESIDUAL 50. PLACED BACK TO PATIENT. ADMINISTERED MEDS. PATIENT TOLERATED WELL. WILL CONTINUE TO MONITOR THE PATIENT. BED IN LOW POSITION. BED ALARM ON
--- NOTE | 2018-03-03 13:18 | NUR ---
GAVE TELEPHONE REPORT TO ELLEN. PATIENT WILL BE GOING TO ROOM 26A. GAVE CALL BACK NUMBER
[2018-03-03] MEDS: THERAHONEY GEL 42.5 GM TP SCH (13:22)
[2018-03-03] MEDS: Z-GUARD PASTE TP SCH (13:22)
[2018-03-03] MEDS: LORazepam 2 MG/ML VIAL IVP PRN (13:43)
--- NOTE | 2018-03-03 13:43 | NUR ---
SEIZURE OF 40 SECONDS. GAVE ATIVAN. HR FROM 180S TO 90S AFTER ATIVAN. VITALS ARE WITHIN NORMAL LIMITS
[2018-03-03] MEDS ORDERED: VALP-22 GT (13:59)
--- NOTE | 2018-03-03 14:47 | NUR ---
TALKED TO DR GOYAL. SHE SAID IF DR HANSON SAID OK TO DISCHARGE WE CAN DISCHARGE HIM. WILL PAGE DR HANSON
--- NOTE | 2018-03-03 14:49 | NUR ---
DR HANSON SAID OK TO DISCHARGE THE PATIENT. LONG WE CONTINUE SEIZURE MEDS. AND SEIZURE WAS ONLY 40 SECONDS
--- NOTE | 2018-03-03 15:14 | NUR ---
CALLED [facility], TALKED TO ELLEN. TOLD HER ABOUT THE SEIZURE AND TO CONTINUE SEIZURE MEDS. SHE VERBALIZED UNDERSTANDING. PATIENT UNABLE TO VERBALIZED UNDERSTANDING W EDUCATION OF DISCHARGE, EDUCATED ON DISEASE PROCESS, ABN S/SX, WHEN TO GO TO THE ER, EDUCATED ON MEDS, EDUCATED ON WOUND CARE, AND FOLLOW UP W PCP. PATIENT APHASIC. ATTEMPTED TO CALL BROTHER FOR THE SECOND TIME, BROTHERS NAME IS SUZY. LEFT A MESSAGE TO TELL HIM HIS BROTHER IS GETTING DISCHARGED
--- NOTE | 2018-03-03 15:57 | NUR ---
PERFORMED WOUND CARE AGAIN. TOOK DISCHARGE PHOTOGRAPHS. RECTAL BAG NOT IN PLACE. [facility] AWARE THAT WOUND CARE NURSE SAID IF BM ARE LOOSE TO CONSIDER RECTAL TUBE D/T WOUNDS.
--- NOTE | 2018-03-03 16:20 | NUR ---
REMOVED ID BANDS, REMOVED TELE MONITOR. GAVE REPORT TO CONSTANZA SANDOVAL. VERBALIZED UNDERSTANDING. PATIENT LEFT IN STABLE CONDITION. BROTHER CALLED ME BACK. HE IS AWARE OF HIS DISCHARGE BACK TO [facility] [place].
== END 2018-03-03 16:20 | DRG 130 ==
LOC: MED 19:14 → MIC 21:31 → MTU 03-01 17:12
PROVIDERS: ADMIT Hospitalist; ATTEND Hospitalist
PROC: 5A1955Z Respiratory Ventilation, Greater than 96 Consecutive Hours (ICD-10-PCS; principal; 2018-02-26)
PROC: 30233N1 Transfusion of Nonautologous Red Blood Cells into Peripheral Vein, Percutaneous Approach (ICD-10-PCS; 2018-02-27)
DX: J15.6 Pneumonia due to other Gram-negative bacteria (principal); E43 Unspecified severe protein-calorie malnutrition; G93.41 Metabolic encephalopathy; R53.2 Functional quadriplegia; J96.10 Chronic respiratory failure, unspecified whether with hypoxia or hypercapnia; E11.22 Type 2 diabetes mellitus with diabetic chronic kidney disease; E87.0 Hyperosmolality and hypernatremia; J69.0 Pneumonitis due to inhalation of food and vomit; N18.9 Chronic kidney disease, unspecified; I12.9 Hypertensive chronic kidney disease with stage 1 through stage 4 chronic kidney disease, or unspecified chronic kidney disease; D63.8 Anemia in other chronic diseases classified elsewhere; L89.90 Pressure ulcer of unspecified site, unspecified stage; E78.5 Hyperlipidemia, unspecified; G40.909 Epilepsy, unspecified, not intractable, without status epilepticus; N39.0 Urinary tract infection, site not specified; Z86.73 Personal history of transient ischemic attack (TIA), and cerebral infarction without residual deficits; Z79.4 Long term (current) use of insulin; Z93.0 Tracheostomy status; Z79.899 Other long term (current) drug therapy; Z89.512 Acquired absence of left leg below knee; Z93.1 Gastrostomy status; Z68.33 Body mass index [BMI] 33.0-33.9, adult; Z83.3 Family history of diabetes mellitus; Z82.49 Family history of ischemic heart disease and other diseases of the circulatory system; Z82.5 Family history of asthma and other chronic lower respiratory diseases
CPT/HCPCS: 36415; 70450; 71045; 80048; 80053; 80173; 80202; 81001; 82272; 82948; 83540; 83605; 83880; 84484; 85025; 85610; 85730; 86886; 86900; 86901; 86920; 87040; 87070; 87081; 87086; 87186; 87205; 93005; 93971; 94002; 94003; 96365; 96367; 99285; A4371; C9113; J1815; J1953; J1956; J2060; J2543; J3370; J3480; J3490; J7030; J7060; P9016; Q0092

== ENCOUNTER 2018-04-15 13:18 | Inpatient (IN) | payer OTHER ==
[2018-04-15] VITALS (7 sets, daily range): BP systolic 88–99; BP diastolic 54–80
[~2018-04-15] VITALS: Ht 175.3 cm; Wt 124.3 kg
[2018-04-15] MEDS ORDERED: NACL 0.9% 1,000 ML IV ONE (13:35)
[2018-04-15 14:28] LABS: MEAN CORPUSCULAR HEMOGLOBIN 30 pg (27-31); MEAN CORPUSCULAR HGB CONC 32 g/dL (33-37); PLATELET COUNT (AUTO) 83 K/uL (140-450); RED CELL DISTRIBUTION WIDTH 18.4 % (11.6-13.7); WHITE BLOOD COUNT (AUTO) 6.4 K/uL (4.8-10.8)
[2018-04-15 14:45] LABS: HEMATOCRIT 11.5 % (36-52); HEMOGLOBIN 3.6 g/dL (12.0-18.0)
[2018-04-15 14:59] LABS: CREATININE 0.8 mg/dL (0.7-1.3)
[2018-04-15 15:21] LABS: LYMPHOCYTES % (MANUAL) 12 % (20-46); MONOCYTES % (MANUAL) 3 % (5-12)
[2018-04-15 15:23] LABS: ALBUMIN 0.3 g/dL (3.4-5.0); ANION GAP 13.1 (8-16); CARBON DIOXIDE 12.7 mmol/L (21-32); TOTAL BILIRUBIN 0.1 mg/dL (0.0-1.0)
[2018-04-15 15:31] LABS: POTASSIUM 1.8 mmol/L (3.5-5.1)
[2018-04-15] MEDS ORDERED: POTASSIUM CHL 20 MEQ/NACL 0.9% 1,000 ML IV ONE (15:45)
[2018-04-15] MEDS ORDERED: NON-FORMULARY ITEM (Acetaminophen (Tylenol) 650 MG) GT PRN (16:30)
[2018-04-15] MEDS ORDERED: ACETAMINOPHEN 650 MG/20.3 ML UDC GT PRN (16:30)
[2018-04-15] MEDS ORDERED: HYDROcodone/APAP 5/325 MG 1 TAB TAB GT PRN ×2 (16:30)
[2018-04-15] MEDS ORDERED: INSULIN HUMAN REGULAR SUBQ SCH (16:30)
[2018-04-15] MEDS ORDERED: DEXTROSE 50% 50 ML SYR IVP PRN (18:40)
[2018-04-15 19:14] LABS: HEMATOCRIT 27.3 % (36-52); HEMOGLOBIN 8.6 g/dL (12.0-18.0); MEAN CORPUSCULAR HEMOGLOBIN 28 pg (27-31); MEAN CORPUSCULAR HGB CONC 32 g/dL (33-37); MEAN CORPUSCULAR VOLUME 89.9 fL (80-94); PLATELET COUNT (AUTO) 173 K/uL (140-450); RED BLOOD CELL COUNT(AUTO) 3.04 MIL/uL (4.20-6.10); RED CELL DISTRIBUTION WIDTH 17.4 % (11.6-13.7); WHITE BLOOD COUNT (AUTO) 14.7 K/uL (4.8-10.8)
[2018-04-15 19:33] LABS: ANION GAP 13.5 (8-16); CARBON DIOXIDE 23.6 mmol/L (21-32); CREATININE 1.8 mg/dL (0.7-1.3); POTASSIUM 4.1 mmol/L (3.5-5.1)
[2018-04-15 20:15] LABS: EOSINOPHILS % (MANUAL) 1 % (0-4); LYMPHOCYTES % (MANUAL) 5 % (20-46); MONOCYTES % (MANUAL) 4 % (5-12)
[2018-04-15] MEDS: DEXT 5% / NACL 0.45% 1,000 ML IV SCH (20:48)
[2018-04-15] MEDS: VALPROIC ACID 250 MG/5 ML UDC GT SCH (20:49)
[2018-04-15] MEDS: FERROUS SULFATE 300 MG/5 ML UDC GT SCH (20:49)
[2018-04-15] MEDS: levETIRAcetam 100 MG/ML ORASYR GT SCH (20:49)
[2018-04-15] MEDS ORDERED: FERROUS SULFATE 220 MG GT SCH (21:00)
[2018-04-15 21:05] LABS: BILIRUBIN,URINE NEGATIVE (NEGATIVE); BLOOD, URINE 3+ (NEGATIVE); COLOR,URINE YELLOW (YELLOW); LEUKOCYTE ESTERASE ,URINE 3+ (NEGATIVE); NITRITE, URINE NEGATIVE (NEGATIVE); UGLUCOSE NEGATIVE (NEGATIVE)
[2018-04-15 21:12] LABS: APPEARANCE,URINE CLOUDY (CLEAR); RBC,URINE 80-100 /HPF (0-5); WBC,URINE TOO MANY TO COUNT /HPF (0-5)
[2018-04-15] MEDS: BLOOD GLUCOSE MONITORING 1 DEV DEV FS SCH (23:58)
[2018-04-16] VITALS (22 sets, daily range): BP systolic 93–141; BP diastolic 56–83
[2018-04-16] MEDS: INSULIN LISPRO SLIDING SCALE 100 UNITS/ML VIAL SUBQ PRN ×4 (00:01→23:55)
[2018-04-16] MEDS: LORazepam 2 MG/ML VIAL IVP PRN (00:04)
[2018-04-16] MEDS ORDERED: NACL 0.9% 1,000 ML IV ONE (00:50)
[2018-04-16 01:23] LABS: ANION GAP 15.6 (8-16); CREATININE 1.8 mg/dL (0.7-1.3); POTASSIUM 3.6 mmol/L (3.5-5.1)
[2018-04-16] MEDS ORDERED: cefTRIAXone 1,000 MG VIAL ONE (01:31)
[2018-04-16] MEDS ORDERED: HYDRAGUARD CREAM TP ONE (01:47)
[2018-04-16] MEDS ORDERED: Z-GUARD PASTE TP ONE (01:47)
[2018-04-16] MEDS: DEXT 5% / NACL 0.45% 1,000 ML IV SCH (05:00)
[2018-04-16 05:34] LABS: HEMATOCRIT 27.2 % (36-52); HEMOGLOBIN 8.8 g/dL (12.0-18.0); MEAN CORPUSCULAR HEMOGLOBIN 29 pg (27-31); MEAN CORPUSCULAR HGB CONC 32 g/dL (33-37); MEAN CORPUSCULAR VOLUME 89.3 fL (80-94); PLATELET COUNT (AUTO) 164 K/uL (140-450); RED BLOOD CELL COUNT(AUTO) 3.05 MIL/uL (4.20-6.10); RED CELL DISTRIBUTION WIDTH 18.1 % (11.6-13.7); WHITE BLOOD COUNT (AUTO) 10.9 K/uL (4.8-10.8)
[2018-04-16 05:59] LABS: MAGNESIUM 2.1 mg/dL (1.8-2.4); PHOSPHORUS 3.4 mg/dL (2.5-4.9)
[2018-04-16] MEDS: BLOOD GLUCOSE MONITORING 1 DEV DEV FS SCH ×4 (05:59→23:53)
[2018-04-16] MEDS: levETIRAcetam 100 MG/ML ORASYR GT SCH ×3 (05:59→20:14)
[2018-04-16] MEDS: VALPROIC ACID 250 MG/5 ML UDC GT SCH ×3 (05:59→20:14)
[2018-04-16 06:04] LABS: ALBUMIN 0.8 g/dL (3.4-5.0); ANION GAP 11.7 (8-16); CARBON DIOXIDE 24.9 mmol/L (21-32); CREATININE 1.7 mg/dL (0.7-1.3); POTASSIUM 3.6 mmol/L (3.5-5.1); TOTAL BILIRUBIN 0.2 mg/dL (0.0-1.0)
[2018-04-16 06:43] LABS: EOSINOPHILS % (MANUAL) 2 % (0-4); LYMPHOCYTES % (MANUAL) 10 % (20-46); MONOCYTES % (MANUAL) 6 % (5-12)
[2018-04-16] MEDS ORDERED: LANSOPRAZOLE 30 MG CAPDR GT SCH (08:00)
[2018-04-16] MEDS: LACTOBACILLUS RHAMNOSUS GG 1 EACH CAP GT SCH (08:54)
[2018-04-16] MEDS: ATORVASTATIN 20 MG TAB GT SCH (08:54)
[2018-04-16] MEDS: CALCITRIOL 0.25 MCG CAPLF PO SCH (08:55)
[2018-04-16] MEDS: FERROUS SULFATE 300 MG/5 ML UDC GT SCH (08:55)
[2018-04-16] MEDS: ZINC SULF 220 MG CAP GT SCH (08:55)
[2018-04-16] MEDS: ASCORBIC ACID 500 MG/5 ML ORASYR GT SCH (08:55)
[2018-04-16] MEDS ORDERED: NON-FORMULARY ITEM (Lactobacillus Rhamnosus Gg (Culturelle Health & Wellness) 1 EACH) PO SCH (09:00)
[2018-04-16] MEDS: DEXT 5% / NACL 0.2% 1,000 ML IV SCH ×2 (10:25→20:08)
[2018-04-16] MEDS: HYDRAGUARD CREAM TP SCH (12:40)
[2018-04-16] MEDS: THERAHONEY GEL 42.5 GM TP SCH (12:40)
[2018-04-16] MEDS: SKINTEGRITY HYDROGEL TP SCH (12:40)
[2018-04-16] MEDS: HYDROCOLLOID DRESSING TP SCH (12:40)
[2018-04-16] MEDS: ALGINATE ROPE TP SCH (12:40)
[2018-04-16] MEDS: Z-GUARD PASTE TP SCH (12:41)
[2018-04-16] MEDS ORDERED: SKINTEGRITY HYDROGEL TP SCH (13:00)
[2018-04-16] MEDS ORDERED: PHYTONADIONE 10 MG/ML AMP SUBQ SCH (16:00)
[2018-04-16] MEDS: SODIUM FERRIC GLUCONATE 125 MG in NACL 0.9% 100 ML IV SCH (16:56)
[2018-04-16] MEDS: PANTOPRAZOLE 40 MG INJ VIAL IVP SCH (20:15)
[2018-04-16] MEDS: METOCLOPRAMIDE 10 MG/2 ML INJ VIAL IVP SCH (20:15)
[2018-04-17] VITALS (24 sets, daily range): BP systolic 109–140; BP diastolic 58–84
[2018-04-17] MEDS: HYDRAGUARD CREAM TP SCH ×2 (00:14→13:25)
[2018-04-17] MEDS: Z-GUARD PASTE TP SCH ×2 (00:14→13:25)
[2018-04-17] MEDS ORDERED: VALPROIC ACID 250 MG/5 ML UDC ONE (05:27)
[2018-04-17] MEDS: VALPROIC ACID 250 MG/5 ML UDC GT SCH ×3 (05:41→20:34)
[2018-04-17 05:42] LABS: HEMATOCRIT 26.9 % (36-52); HEMOGLOBIN 8.7 g/dL (12.0-18.0); MEAN CORPUSCULAR HEMOGLOBIN 29 pg (27-31); MEAN CORPUSCULAR HGB CONC 32 g/dL (33-37); MEAN CORPUSCULAR VOLUME 90.2 fL (80-94); PLATELET COUNT (AUTO) 154 K/uL (140-450); RED BLOOD CELL COUNT(AUTO) 2.98 MIL/uL (4.20-6.10); WHITE BLOOD COUNT (AUTO) 8.8 K/uL (4.8-10.8)
[2018-04-17] MEDS: METOCLOPRAMIDE 10 MG/2 ML INJ VIAL IVP SCH ×3 (05:42→20:35)
[2018-04-17] MEDS: levETIRAcetam 100 MG/ML ORASYR GT SCH ×3 (05:42→20:34)
[2018-04-17] MEDS: DEXT 5% / NACL 0.2% 1,000 ML IV SCH ×2 (05:42→15:59)
[2018-04-17] MEDS: BLOOD GLUCOSE MONITORING 1 DEV DEV FS SCH ×3 (05:57→18:30)
[2018-04-17] MEDS: INSULIN LISPRO SLIDING SCALE 100 UNITS/ML VIAL SUBQ PRN ×3 (05:57→18:30)
[2018-04-17 06:10] LABS: EOSINOPHILS % (MANUAL) 1 % (0-4); LYMPHOCYTES % (MANUAL) 6 % (20-46); MONOCYTES % (MANUAL) 4 % (5-12)
[2018-04-17 06:27] LABS: ALBUMIN 0.8 g/dL (3.4-5.0); ANION GAP 14.1 (8-16); CARBON DIOXIDE 22.2 mmol/L (21-32); CREATININE 1.4 mg/dL (0.7-1.3); POTASSIUM 3.3 mmol/L (3.5-5.1); TOTAL BILIRUBIN 0.2 mg/dL (0.0-1.0)
[2018-04-17 06:28] LABS: MAGNESIUM 1.8 mg/dL (1.8-2.4); PHOSPHORUS 3.2 mg/dL (2.5-4.9)
[2018-04-17] MEDS: ZINC SULF 220 MG CAP GT SCH (09:00)
[2018-04-17] MEDS: PANTOPRAZOLE 40 MG INJ VIAL IVP SCH ×2 (09:00→20:34)
[2018-04-17] MEDS: ATORVASTATIN 20 MG TAB GT SCH (09:00)
[2018-04-17] MEDS: LACTULOSE 20 GM/30 ML UDC PO SCH (09:00)
[2018-04-17] MEDS: ASCORBIC ACID 500 MG/5 ML ORASYR GT SCH (09:01)
[2018-04-17] MEDS: LACTOBACILLUS RHAMNOSUS GG 1 EACH CAP GT SCH (09:01)
[2018-04-17] MEDS: CALCITRIOL 0.25 MCG CAPLF PO SCH (09:01)
[2018-04-17] MEDS: KCL 20 MEQ/WATER INJ PREMIX 100 ML IV SCH ×2 (10:23→11:59)
[2018-04-17] MEDS: THERAHONEY GEL 42.5 GM TP SCH (13:28)
[2018-04-17] MEDS: SKINTEGRITY HYDROGEL TP SCH (13:30)
[2018-04-17] MEDS: ALGINATE ROPE TP SCH (13:37)
[2018-04-17] MEDS: SODIUM FERRIC GLUCONATE 125 MG in NACL 0.9% 100 ML IV SCH (15:52)
[2018-04-18] VITALS (24 sets, daily range): BP systolic 101–134; BP diastolic 47–78
[2018-04-18] MEDS: BLOOD GLUCOSE MONITORING 1 DEV DEV FS SCH ×5 (00:04→23:52)
[2018-04-18] MEDS: INSULIN LISPRO SLIDING SCALE 100 UNITS/ML VIAL SUBQ PRN ×5 (00:06→23:53)
[2018-04-18] MEDS: Z-GUARD PASTE TP SCH ×2 (01:02→13:09)
[2018-04-18] MEDS: HYDRAGUARD CREAM TP SCH ×2 (01:02→13:09)
[2018-04-18] MEDS: DEXT 5% / NACL 0.2% 1,000 ML IV SCH ×2 (02:36→13:27)
[2018-04-18] MEDS: VALPROIC ACID 250 MG/5 ML UDC GT SCH ×3 (04:38→21:38)
[2018-04-18] MEDS: levETIRAcetam 100 MG/ML ORASYR GT SCH ×3 (04:38→21:38)
[2018-04-18] MEDS: METOCLOPRAMIDE 10 MG/2 ML INJ VIAL IVP SCH (04:39)
[2018-04-18] MEDS ORDERED: VALPROIC ACID 250 MG/5 ML UDC ONE (04:42)
[2018-04-18 06:24] LABS: BASOPHILS % (AUTO) 0.1 % (0.0-2.0); EOSINOPHILS # (AUTO) 0.1 K/uL (0-0.4); EOSINOPHILS % (AUTO) 1.6 % (0.0-4.0); HEMATOCRIT 24.9 % (36-52); LYMPHOCYTES # (AUTO) 0.9 K/uL (2.0-11.5); LYMPHOCYTES % (AUTO) 10.8 % (20.5-51.1); MEAN CORPUSCULAR HEMOGLOBIN 29 pg (27-31); MEAN CORPUSCULAR HGB CONC 32 g/dL (33-37); MEAN CORPUSCULAR VOLUME 90.3 fL (80-94); MONOCYTES # (AUTO) 0.8 K/uL (0.8-1.0); MONOCYTES % (AUTO) 9.6 % (1.7-9.3); NEUTROPHILS # (AUTO) 6.7 K/uL (1.8-7.7); NEUTROPHILS % (AUTO) 77.9 % (42.2-75.2); PLATELET COUNT (AUTO) 133 K/uL (140-450); RED BLOOD CELL COUNT(AUTO) 2.76 MIL/uL (4.20-6.10); RED CELL DISTRIBUTION WIDTH 18.4 % (11.6-13.7); WHITE BLOOD COUNT (AUTO) 8.6 K/uL (4.8-10.8)
[2018-04-18 06:35] LABS: ANION GAP 12.9 (8-16); CARBON DIOXIDE 21.9 mmol/L (21-32); CREATININE 1.3 mg/dL (0.7-1.3); POTASSIUM 3.8 mmol/L (3.5-5.1)
[2018-04-18 06:41] LABS: ALBUMIN 0.7 g/dL (3.4-5.0); TOTAL BILIRUBIN 0.1 mg/dL (0.0-1.0)
[2018-04-18] MEDS: PANTOPRAZOLE 40 MG INJ VIAL IVP SCH (08:22)
[2018-04-18] MEDS: ZINC SULF 220 MG CAP GT SCH (08:23)
[2018-04-18] MEDS: LACTULOSE 20 GM/30 ML UDC PO SCH (08:23)
[2018-04-18] MEDS: ASCORBIC ACID 500 MG/5 ML ORASYR GT SCH (08:23)
[2018-04-18] MEDS: LACTOBACILLUS RHAMNOSUS GG 1 EACH CAP GT SCH (08:23)
[2018-04-18] MEDS: ATORVASTATIN 20 MG TAB GT SCH (08:24)
[2018-04-18] MEDS ORDERED: fentaNYL 0.05 MG/ML VIAL ONE (10:36)
[2018-04-18] MEDS ORDERED: MIDAZOLAM 2 MG/2 ML VIAL ONE (10:36)
[2018-04-18] MEDS ORDERED: diphenhydrAMINE 50 MG/ML VIAL ONE (10:37)
[2018-04-18] MEDS ORDERED: FUROSEMIDE 20 MG/2 ML VIAL IVP SCH (12:00)
[2018-04-18] MEDS: CALCITRIOL 0.25 MCG CAPLF PO SCH (12:41)
[2018-04-18] MEDS: ALGINATE ROPE TP SCH (13:09)
[2018-04-18] MEDS: SKINTEGRITY HYDROGEL TP SCH (13:09)
[2018-04-18] MEDS: THERAHONEY GEL 42.5 GM TP SCH (13:09)
[2018-04-18] MEDS ORDERED: AMIKACIN PER PHARMACY MC PRN (18:05)
[2018-04-18] MEDS ORDERED: FUROSEMIDE 40 MG/4 ML VIAL IVP SCH (18:30)
[2018-04-18] MEDS ORDERED: AMIKACIN 500 MG in DEXTROSE 5% 100 ML IV SCH (20:30)
[2018-04-18] MEDS ORDERED: PIPERACILLIN/TAZOBACTAM 3.375 GM VIAL IV ONE (21:16)
[2018-04-18] MEDS ORDERED: AMIKACIN 500 MG/2 ML VIAL IV ONE (21:16)
[2018-04-18] MEDS: PIPER/TAZO 3.375GM/D5W PREMIX 50 ML IV SCH (22:21)
[2018-04-19] VITALS (23 sets, daily range): BP systolic 92–144; BP diastolic 53–78
[2018-04-19] MEDS: HYDRAGUARD CREAM TP SCH ×2 (01:39→14:07)
[2018-04-19] MEDS: Z-GUARD PASTE TP SCH ×2 (01:39→14:09)
[2018-04-19] MEDS ORDERED: PIPERACILLIN/TAZOBACTAM 3.375 GM VIAL IV ONE (04:31)
[2018-04-19] MEDS ORDERED: VALPROIC ACID 250 MG/5 ML UDC ONE (04:33)
[2018-04-19] MEDS: PIPER/TAZO 3.375GM/D5W PREMIX 50 ML IV SCH ×3 (05:09→20:47)
[2018-04-19] MEDS: levETIRAcetam 100 MG/ML ORASYR GT SCH ×3 (05:09→20:48)
[2018-04-19] MEDS: VALPROIC ACID 250 MG/5 ML UDC GT SCH ×3 (05:09→20:48)
[2018-04-19 06:18] LABS: ALBUMIN 0.7 g/dL (3.4-5.0); CARBON DIOXIDE 20.9 mmol/L (21-32); CREATININE 1.4 mg/dL (0.7-1.3); POTASSIUM 3.9 mmol/L (3.5-5.1); TOTAL BILIRUBIN 0.1 mg/dL (0.0-1.0)
[2018-04-19 06:26] LABS: BASOPHILS % (AUTO) 0.1 % (0.0-2.0); EOSINOPHILS # (AUTO) 0.1 K/uL (0-0.4); EOSINOPHILS % (AUTO) 0.8 % (0.0-4.0); HEMATOCRIT 24.1 % (36-52); HEMOGLOBIN 7.7 g/dL (12.0-18.0); LYMPHOCYTES # (AUTO) 1.2 K/uL (2.0-11.5); LYMPHOCYTES % (AUTO) 13.4 % (20.5-51.1); MEAN CORPUSCULAR HEMOGLOBIN 29 pg (27-31); MEAN CORPUSCULAR HGB CONC 32 g/dL (33-37); MEAN CORPUSCULAR VOLUME 90.5 fL (80-94); MONOCYTES # (AUTO) 0.7 K/uL (0.8-1.0); MONOCYTES % (AUTO) 7.7 % (1.7-9.3); NEUTROPHILS # (AUTO) 7.2 K/uL (1.8-7.7); PLATELET COUNT (AUTO) 128 K/uL (140-450); RED BLOOD CELL COUNT(AUTO) 2.66 MIL/uL (4.20-6.10); RED CELL DISTRIBUTION WIDTH 18.8 % (11.6-13.7); WHITE BLOOD COUNT (AUTO) 9.2 K/uL (4.8-10.8)
[2018-04-19] MEDS: BLOOD GLUCOSE MONITORING 1 DEV DEV FS SCH ×3 (06:28→18:13)
[2018-04-19] MEDS: INSULIN LISPRO SLIDING SCALE 100 UNITS/ML VIAL SUBQ PRN ×3 (06:31→18:12)
[2018-04-19] MEDS: LACTOBACILLUS RHAMNOSUS GG 1 EACH CAP GT SCH (08:32)
[2018-04-19] MEDS: ZINC SULF 220 MG CAP GT SCH (08:33)
[2018-04-19] MEDS: ASCORBIC ACID 500 MG/5 ML ORASYR GT SCH (08:33)
[2018-04-19] MEDS: ATORVASTATIN 20 MG TAB GT SCH (08:33)
[2018-04-19] MEDS: CALCITRIOL 0.25 MCG CAPLF PO SCH (08:33)
[2018-04-19] MEDS: HYDROCOLLOID DRESSING TP SCH (09:07)
[2018-04-19] MEDS: AMIKACIN 500 MG in DEXTROSE 5% 100 ML IV SCH ×2 (10:10→22:00)
[2018-04-19] MEDS: FUROSEMIDE 40 MG/4 ML VIAL IVP SCH ×2 (10:11→22:25)
[2018-04-19] MEDS: ALBUMIN HUMAN 25% 50 ML IV SCH ×2 (12:22→23:22)
[2018-04-19] MEDS: DEXT 5% / NACL 0.2% 1,000 ML IV SCH (13:27)
[2018-04-19] MEDS: ALGINATE ROPE TP SCH (14:06)
[2018-04-19] MEDS: THERAHONEY GEL 42.5 GM TP SCH (14:08)
[2018-04-19] MEDS: SKINTEGRITY HYDROGEL TP SCH (14:08)
[2018-04-19] MEDS: LORazepam 2 MG/ML VIAL IVP PRN (18:20)
[2018-04-20] VITALS (17 sets, daily range): BP systolic 100–136; BP diastolic 56–87
[2018-04-20] MEDS: BLOOD GLUCOSE MONITORING 1 DEV DEV FS SCH ×4 (00:51→17:54)
[2018-04-20] MEDS: Z-GUARD PASTE TP SCH ×2 (01:28→12:49)
[2018-04-20] MEDS: HYDRAGUARD CREAM TP SCH ×2 (01:28→12:48)
[2018-04-20] MEDS: INSULIN LISPRO SLIDING SCALE 100 UNITS/ML VIAL SUBQ PRN ×4 (02:04→17:58)
[2018-04-20] MEDS: VALPROIC ACID 250 MG/5 ML UDC GT SCH ×3 (04:02→20:12)
[2018-04-20] MEDS: PIPER/TAZO 3.375GM/D5W PREMIX 50 ML IV SCH ×3 (04:02→20:13)
[2018-04-20] MEDS: levETIRAcetam 100 MG/ML ORASYR GT SCH ×3 (04:02→20:13)
[2018-04-20 06:36] LABS: ANION GAP 13.4 (8-16); CARBON DIOXIDE 23.3 mmol/L (21-32); CREATININE 1.3 mg/dL (0.7-1.3); POTASSIUM 3.7 mmol/L (3.5-5.1)
[2018-04-20] MEDS: ALBUTEROL SULFATE/IPRATROPIU 3 ML SOL IH PRN ×2 (07:36→13:28)
[2018-04-20] MEDS: ATORVASTATIN 20 MG TAB GT SCH (09:07)
[2018-04-20] MEDS: LACTOBACILLUS RHAMNOSUS GG 1 EACH CAP GT SCH (09:07)
[2018-04-20] MEDS: CALCITRIOL 0.25 MCG CAPLF PO SCH (09:07)
[2018-04-20] MEDS: ASCORBIC ACID 500 MG/5 ML ORASYR GT SCH (09:07)
[2018-04-20] MEDS: ZINC SULF 220 MG CAP GT SCH (09:07)
[2018-04-20] MEDS: AMIKACIN 500 MG in DEXTROSE 5% 100 ML IV SCH ×2 (10:05→22:04)
[2018-04-20] MEDS: ALBUMIN HUMAN 25% 50 ML IV SCH ×2 (12:47→23:09)
[2018-04-20] MEDS: ALGINATE ROPE TP SCH (12:48)
[2018-04-20] MEDS: SKINTEGRITY HYDROGEL TP SCH (12:48)
[2018-04-20] MEDS: THERAHONEY GEL 42.5 GM TP SCH (12:49)
[2018-04-20] MEDS: DEXT 5% / NACL 0.2% 1,000 ML IV SCH (13:27)
[2018-04-21] VITALS (17 sets, daily range): BP systolic 90–123; BP diastolic 48–80
[2018-04-21] MEDS: BLOOD GLUCOSE MONITORING 1 DEV DEV FS SCH ×4 (00:13→18:09)
[2018-04-21] MEDS: INSULIN LISPRO SLIDING SCALE 100 UNITS/ML VIAL SUBQ PRN ×4 (00:15→18:13)
[2018-04-21] MEDS: HYDRAGUARD CREAM TP SCH ×2 (01:57→13:33)
[2018-04-21] MEDS: Z-GUARD PASTE TP SCH ×2 (01:57→13:33)
[2018-04-21] MEDS: DEXT 5% / NACL 0.2% 1,000 ML IV SCH (02:50)
[2018-04-21] MEDS: levETIRAcetam 100 MG/ML ORASYR GT SCH ×3 (04:33→20:50)
[2018-04-21] MEDS: PIPER/TAZO 3.375GM/D5W PREMIX 50 ML IV SCH ×3 (04:33→20:50)
[2018-04-21] MEDS: VALPROIC ACID 250 MG/5 ML UDC GT SCH ×3 (04:33→20:50)
[2018-04-21 06:21] LABS: ALBUMIN 1.1 g/dL (3.4-5.0); ANION GAP 14.7 (8-16); CARBON DIOXIDE 23.1 mmol/L (21-32); CREATININE 1.3 mg/dL (0.7-1.3); POTASSIUM 3.8 mmol/L (3.5-5.1); TOTAL BILIRUBIN 0.2 mg/dL (0.0-1.0)
[2018-04-21 06:48] LABS: BASOPHILS % (AUTO) 0.4 % (0.0-2.0); EOSINOPHILS # (AUTO) 0.1 K/uL (0-0.4); EOSINOPHILS % (AUTO) 0.7 % (0.0-4.0); HEMOGLOBIN 7.8 g/dL (12.0-18.0); LYMPHOCYTES # (AUTO) 0.9 K/uL (2.0-11.5); LYMPHOCYTES % (AUTO) 9.6 % (20.5-51.1); MEAN CORPUSCULAR HEMOGLOBIN 29 pg (27-31); MEAN CORPUSCULAR HGB CONC 32 g/dL (33-37); MEAN CORPUSCULAR VOLUME 90.2 fL (80-94); MONOCYTES # (AUTO) 1.1 K/uL (0.8-1.0); MONOCYTES % (AUTO) 12.1 % (1.7-9.3); NEUTROPHILS # (AUTO) 7.3 K/uL (1.8-7.7); NEUTROPHILS % (AUTO) 77.2 % (42.2-75.2); PLATELET COUNT (AUTO) 101 K/uL (140-450); RED BLOOD CELL COUNT(AUTO) 2.66 MIL/uL (4.20-6.10); RED CELL DISTRIBUTION WIDTH 18.3 % (11.6-13.7); WHITE BLOOD COUNT (AUTO) 9.5 K/uL (4.8-10.8)
[2018-04-21] MEDS: ATORVASTATIN 20 MG TAB GT SCH (08:21)
[2018-04-21] MEDS: LACTOBACILLUS RHAMNOSUS GG 1 EACH CAP GT SCH (08:21)
[2018-04-21] MEDS: ZINC SULF 220 MG CAP GT SCH (08:22)
[2018-04-21] MEDS: ASCORBIC ACID 500 MG/5 ML ORASYR GT SCH (08:22)
[2018-04-21] MEDS: CALCITRIOL 0.25 MCG CAPLF PO SCH (08:22)
[2018-04-21] MEDS ORDERED: PROBIOTIC SCREEN 1 EA MISC MC PRN (09:10)
[2018-04-21] MEDS: AMIKACIN 500 MG in DEXTROSE 5% 100 ML IV SCH ×2 (09:56→21:43)
[2018-04-21] MEDS: ALGINATE ROPE TP SCH (13:33)
[2018-04-21] MEDS: SKINTEGRITY HYDROGEL TP SCH (13:33)
[2018-04-21] MEDS: THERAHONEY GEL 42.5 GM TP SCH (13:33)
[2018-04-21 13:58] LABS: APPEARANCE,URINE HAZY (CLEAR); BILIRUBIN,URINE NEGATIVE (NEGATIVE); BLOOD, URINE 3+ (NEGATIVE); COLOR,URINE YELLOW (YELLOW); LEUKOCYTE ESTERASE ,URINE 2+ (NEGATIVE); NITRITE, URINE NEGATIVE (NEGATIVE); UGLUCOSE 1+ (NEGATIVE)
[2018-04-21 14:23] LABS: RBC,URINE 20-50 /HPF (0-5); WBC,URINE TOO MANY TO COUNT /HPF (0-5)
[2018-04-21] MEDS: ALBUTEROL SULFATE/IPRATROPIU 3 ML SOL IH PRN (15:56)
[2018-04-22] VITALS (8 sets, daily range): BP systolic 101–127; BP diastolic 50–72
[2018-04-22] MEDS: BLOOD GLUCOSE MONITORING 1 DEV DEV FS SCH ×4 (00:45→18:26)
[2018-04-22] MEDS: INSULIN LISPRO SLIDING SCALE 100 UNITS/ML VIAL SUBQ PRN ×4 (00:45→18:28)
[2018-04-22] MEDS: HYDRAGUARD CREAM TP SCH ×2 (01:23→12:15)
[2018-04-22] MEDS: Z-GUARD PASTE TP SCH ×2 (01:23→12:16)
[2018-04-22] MEDS: VALPROIC ACID 250 MG/5 ML UDC GT SCH ×3 (04:49→20:35)
[2018-04-22] MEDS: levETIRAcetam 100 MG/ML ORASYR GT SCH ×3 (04:50→20:35)
[2018-04-22] MEDS: PIPER/TAZO 3.375GM/D5W PREMIX 50 ML IV SCH ×3 (05:14→20:34)
[2018-04-22 08:17] LABS: BASOPHILS % (AUTO) 0.1 % (0.0-2.0); EOSINOPHILS % (AUTO) 0.1 % (0.0-4.0); LYMPHOCYTES # (AUTO) 1.1 K/uL (2.0-11.5); LYMPHOCYTES % (AUTO) 10.4 % (20.5-51.1); MEAN CORPUSCULAR HEMOGLOBIN 30 pg (27-31); MEAN CORPUSCULAR HGB CONC 33 g/dL (33-37); MEAN CORPUSCULAR VOLUME 90.4 fL (80-94); MONOCYTES # (AUTO) 1.2 K/uL (0.8-1.0); MONOCYTES % (AUTO) 11.8 % (1.7-9.3); NEUTROPHILS # (AUTO) 8.1 K/uL (1.8-7.7); NEUTROPHILS % (AUTO) 77.6 % (42.2-75.2); PLATELET COUNT (AUTO) 93 K/uL (140-450); RED BLOOD CELL COUNT(AUTO) 2.29 MIL/uL (4.20-6.10); RED CELL DISTRIBUTION WIDTH 20.7 % (11.6-13.7); WHITE BLOOD COUNT (AUTO) 10.5 K/uL (4.8-10.8)
[2018-04-22 08:26] LABS: HEMATOCRIT 20.7 % (36-52); HEMOGLOBIN 6.8 g/dL (12.0-18.0)
[2018-04-22 09:26] LABS: ANION GAP 14.3 (8-16); CARBON DIOXIDE 22.7 mmol/L (21-32); CREATININE 1.5 mg/dL (0.7-1.3); TOTAL BILIRUBIN 0.2 mg/dL (0.0-1.0)
[2018-04-22] MEDS: CALCITRIOL 0.25 MCG CAPLF PO SCH (09:35)
[2018-04-22] MEDS: ASCORBIC ACID 500 MG/5 ML ORASYR GT SCH (09:35)
[2018-04-22] MEDS: LACTOBACILLUS RHAMNOSUS GG 1 EACH CAP GT SCH (09:36)
[2018-04-22] MEDS: ZINC SULF 220 MG CAP GT SCH (09:36)
[2018-04-22] MEDS: ATORVASTATIN 20 MG TAB GT SCH (09:36)
[2018-04-22] MEDS: HYDROCOLLOID DRESSING TP SCH (09:37)
[2018-04-22 09:52] LABS: MAGNESIUM 1.5 mg/dL (1.8-2.4); PHOSPHORUS 3.4 mg/dL (2.5-4.9)
[2018-04-22] MEDS: ALGINATE ROPE TP SCH (12:15)
[2018-04-22] MEDS: SKINTEGRITY HYDROGEL TP SCH (12:15)
[2018-04-22] MEDS: THERAHONEY GEL 42.5 GM TP SCH (12:15)
[2018-04-22] MEDS: DEXT 5% / NACL 0.2% 1,000 ML IV SCH (12:16)
[2018-04-22] MEDS ORDERED: MAG SULF 2000 MG/WATER PREMIX 50 ML IV SCH (13:30)
[2018-04-22] MEDS: AMIKACIN 500 MG in DEXTROSE 5% 100 ML IV SCH ×2 (14:48→20:34)
[2018-04-22] MEDS: ALBUTEROL SULFATE/IPRATROPIU 3 ML SOL IH PRN (20:01)
[2018-04-23] VITALS: BP 110/56
[2018-04-23] MEDS: HYDRAGUARD CREAM TP SCH ×3 (00:34→23:59)
[2018-04-23] MEDS: BLOOD GLUCOSE MONITORING 1 DEV DEV FS SCH ×5 (00:34→23:59)
[2018-04-23] MEDS: Z-GUARD PASTE TP SCH ×2 (00:35→12:47)
[2018-04-23] MEDS: INSULIN LISPRO SLIDING SCALE 100 UNITS/ML VIAL SUBQ PRN ×4 (00:38→17:45)
[2018-04-23 04:00] VITALS: BP 109/56
[2018-04-23] MEDS: VALPROIC ACID 250 MG/5 ML UDC GT SCH ×3 (05:37→20:20)
[2018-04-23] MEDS: PIPER/TAZO 3.375GM/D5W PREMIX 50 ML IV SCH ×3 (05:37→20:21)
[2018-04-23] MEDS: levETIRAcetam 100 MG/ML ORASYR GT SCH ×3 (05:38→20:21)
[2018-04-23 08:00] VITALS: BP 113/65
[2018-04-23] MEDS: LACTOBACILLUS RHAMNOSUS GG 1 EACH CAP GT SCH (08:33)
[2018-04-23] MEDS: CALCITRIOL 0.25 MCG CAPLF PO SCH (08:34)
[2018-04-23] MEDS: ATORVASTATIN 20 MG TAB GT SCH (08:34)
[2018-04-23] MEDS: ASCORBIC ACID 500 MG/5 ML ORASYR GT SCH (08:34)
[2018-04-23] MEDS ORDERED: ALTEPLASE 2 MG VIAL MC SCH (10:00)
[2018-04-23 10:13] LABS: BASOPHILS % (AUTO) 0.2 % (0.0-2.0); EOSINOPHILS % (AUTO) 0.4 % (0.0-4.0); HEMATOCRIT 21.5 % (36-52); LYMPHOCYTES # (AUTO) 1.2 K/uL (2.0-11.5); LYMPHOCYTES % (AUTO) 12.3 % (20.5-51.1); MEAN CORPUSCULAR HEMOGLOBIN 29 pg (27-31); MEAN CORPUSCULAR HGB CONC 32 g/dL (33-37); MEAN CORPUSCULAR VOLUME 90.8 fL (80-94); MONOCYTES % (AUTO) 9.8 % (1.7-9.3); NEUTROPHILS # (AUTO) 7.6 K/uL (1.8-7.7); NEUTROPHILS % (AUTO) 77.3 % (42.2-75.2); PLATELET COUNT (AUTO) 92 K/uL (140-450); RED BLOOD CELL COUNT(AUTO) 2.37 MIL/uL (4.20-6.10); RED CELL DISTRIBUTION WIDTH 21.7 % (11.6-13.7); WHITE BLOOD COUNT (AUTO) 9.9 K/uL (4.8-10.8)
[2018-04-23 10:34] LABS: ANION GAP 12.5 (8-16); CARBON DIOXIDE 22.5 mmol/L (21-32); CREATININE 1.5 mg/dL (0.7-1.3); TOTAL BILIRUBIN 0.3 mg/dL (0.0-1.0)
[2018-04-23] MEDS: ZINC SULF 220 MG CAP GT SCH (10:38)
[2018-04-23] MEDS: AMIKACIN 500 MG in DEXTROSE 5% 100 ML IV SCH (10:39)
[2018-04-23 12:00] VITALS: BP 115/63
[2018-04-23 12:29] LABS: PHOSPHORUS 4.1 mg/dL (2.5-4.9)
[2018-04-23] MEDS: ALGINATE ROPE TP SCH (12:46)
[2018-04-23] MEDS: THERAHONEY GEL 42.5 GM TP SCH (12:47)
[2018-04-23] MEDS: SKINTEGRITY HYDROGEL TP SCH (12:47)
[2018-04-23] MEDS: DEXT 5% / NACL 0.2% 1,000 ML IV SCH (13:27)
[2018-04-23 16:00] VITALS: BP 119/67
[2018-04-23 20:00] VITALS: BP 126/65
[2018-04-24] VITALS: BP 123/70
[2018-04-24] MEDS: INSULIN LISPRO SLIDING SCALE 100 UNITS/ML VIAL SUBQ PRN ×5 (00:06→23:33)
[2018-04-24] MEDS: DEXT 5% / NACL 0.2% 1,000 ML IV SCH (01:57)
[2018-04-24] MEDS: AMIKACIN 500 MG in DEXTROSE 5% 100 ML IV SCH ×2 (03:59→21:37)
[2018-04-24 04:00] VITALS: BP 116/78
[2018-04-24] MEDS: VALPROIC ACID 250 MG/5 ML UDC GT SCH ×3 (04:00→20:24)
[2018-04-24] MEDS: PIPER/TAZO 3.375GM/D5W PREMIX 50 ML IV SCH ×3 (04:01→20:24)
[2018-04-24] MEDS: levETIRAcetam 100 MG/ML ORASYR GT SCH ×3 (04:01→20:24)
[2018-04-24] MEDS: BLOOD GLUCOSE MONITORING 1 DEV DEV FS SCH ×4 (05:29→23:36)
[2018-04-24 07:31] LABS: BASOPHILS % (AUTO) 0.2 % (0.0-2.0); EOSINOPHILS % (AUTO) 0.6 % (0.0-4.0); LYMPHOCYTES % (AUTO) 12.5 % (20.5-51.1); MEAN CORPUSCULAR HEMOGLOBIN 30 pg (27-31); MEAN CORPUSCULAR HGB CONC 33 g/dL (33-37); MEAN CORPUSCULAR VOLUME 90.5 fL (80-94); MONOCYTES # (AUTO) 0.7 K/uL (0.8-1.0); MONOCYTES % (AUTO) 8.8 % (1.7-9.3); NEUTROPHILS % (AUTO) 77.9 % (42.2-75.2); PLATELET COUNT (AUTO) 75 K/uL (140-450); RED BLOOD CELL COUNT(AUTO) 2.13 MIL/uL (4.20-6.10); RED CELL DISTRIBUTION WIDTH 20.3 % (11.6-13.7); WHITE BLOOD COUNT (AUTO) 7.7 K/uL (4.8-10.8)
[2018-04-24 07:55] LABS: ALBUMIN 0.8 g/dL (3.4-5.0); ANION GAP 13.2 (8-16); CARBON DIOXIDE 24.6 mmol/L (21-32); CREATININE 1.4 mg/dL (0.7-1.3); POTASSIUM 3.8 mmol/L (3.5-5.1); TOTAL BILIRUBIN 0.2 mg/dL (0.0-1.0)
[2018-04-24 08:00] VITALS: BP 112/65
[2018-04-24 08:08] LABS: HEMATOCRIT 19.3 % (36-52); HEMOGLOBIN 6.3 g/dL (12.0-18.0)
[2018-04-24] MEDS: ZINC SULF 220 MG CAP GT SCH (09:52)
[2018-04-24] MEDS: CALCITRIOL 0.25 MCG CAPLF PO SCH (09:53)
[2018-04-24] MEDS: LACTOBACILLUS RHAMNOSUS GG 1 EACH CAP GT SCH (09:53)
[2018-04-24] MEDS: ATORVASTATIN 20 MG TAB GT SCH (09:53)
[2018-04-24] MEDS: ASCORBIC ACID 500 MG/5 ML ORASYR GT SCH (09:53)
[2018-04-24 12:00] VITALS: BP 111/55
[2018-04-24] MEDS: HYDRAGUARD CREAM TP SCH (12:32)
[2018-04-24] MEDS: ALGINATE ROPE TP SCH (12:32)
[2018-04-24] MEDS: SKINTEGRITY HYDROGEL TP SCH (12:32)
[2018-04-24] MEDS: Z-GUARD PASTE TP SCH ×2 (12:33)
[2018-04-24] MEDS: THERAHONEY GEL 42.5 GM TP SCH (13:34)
[2018-04-24 16:00] VITALS: BP 102/59
[2018-04-24 20:00] VITALS: BP 101/63
[2018-04-25] VITALS (9 sets, daily range): BP systolic 66–132; BP diastolic 34–72
[2018-04-25] MEDS: HYDRAGUARD CREAM TP SCH ×2 (01:02→13:49)
[2018-04-25] MEDS: Z-GUARD PASTE TP SCH ×2 (01:03→13:50)
[2018-04-25] MEDS: PIPER/TAZO 3.375GM/D5W PREMIX 50 ML IV SCH ×3 (04:18→20:44)
[2018-04-25] MEDS: levETIRAcetam 100 MG/ML ORASYR GT SCH ×3 (04:18→20:44)
[2018-04-25] MEDS: VALPROIC ACID 250 MG/5 ML UDC GT SCH ×3 (04:18→20:44)
[2018-04-25] MEDS: INSULIN LISPRO SLIDING SCALE 100 UNITS/ML VIAL SUBQ PRN (05:48)
[2018-04-25] MEDS: BLOOD GLUCOSE MONITORING 1 DEV DEV FS SCH ×2 (05:48→12:00)
[2018-04-25] MEDS: ZINC SULF 220 MG CAP GT SCH (09:52)
[2018-04-25] MEDS: LACTOBACILLUS RHAMNOSUS GG 1 EACH CAP GT SCH (09:52)
[2018-04-25] MEDS: ASCORBIC ACID 500 MG/5 ML ORASYR GT SCH (09:54)
[2018-04-25] MEDS: ATORVASTATIN 20 MG TAB GT SCH (09:55)
[2018-04-25] MEDS: CALCITRIOL 0.25 MCG CAPLF PO SCH (09:59)
[2018-04-25] MEDS: HYDROCOLLOID DRESSING TP SCH (10:32)
[2018-04-25] MEDS ORDERED: LORazepam 2 MG/ML VIAL IVP SCH (13:19)
[2018-04-25] MEDS: DEXT 5% / NACL 0.2% 1,000 ML IV SCH (13:27)
[2018-04-25] MEDS: ALGINATE ROPE TP SCH (13:49)
[2018-04-25] MEDS: SKINTEGRITY HYDROGEL TP SCH (13:50)
[2018-04-25] MEDS: THERAHONEY GEL 42.5 GM TP SCH (13:50)
[2018-04-25] MEDS: MORPHINE SULFATE 50 MG in NACL 0.9% 45 ML IV PRN ×9 (14:19→23:18)
[2018-04-25] MEDS: AMIKACIN 500 MG in DEXTROSE 5% 100 ML IV SCH (16:00)
[2018-04-25] MEDS ORDERED: MORPHINE SULFATE 10 MG/ML VIAL ONE ×2 (18:50→23:16)
[2018-04-26] VITALS (9 sets, daily range): BP systolic 65–81; BP diastolic 32–42
[2018-04-26] MEDS: HYDRAGUARD CREAM TP SCH ×2 (01:00→13:00)
[2018-04-26] MEDS: Z-GUARD PASTE TP SCH ×2 (01:00→13:00)
[2018-04-26] MEDS ORDERED: MORPHINE SULFATE 10 MG/ML VIAL ONE (03:11)
[2018-04-26] MEDS: MORPHINE SULFATE 50 MG in NACL 0.9% 45 ML IV PRN ×2 (03:49→09:40)
[2018-04-26] MEDS: PIPER/TAZO 3.375GM/D5W PREMIX 50 ML IV SCH (05:00)
[2018-04-26] MEDS: VALPROIC ACID 250 MG/5 ML UDC GT SCH ×3 (05:00→20:54)
[2018-04-26] MEDS: levETIRAcetam 100 MG/ML ORASYR GT SCH ×3 (05:00→20:54)
[2018-04-26] MEDS: ASCORBIC ACID 500 MG/5 ML ORASYR GT SCH (09:00)
[2018-04-26] MEDS: ZINC SULF 220 MG CAP GT SCH (09:00)
[2018-04-26] MEDS: LACTOBACILLUS RHAMNOSUS GG 1 EACH CAP GT SCH (09:00)
[2018-04-26] MEDS: ATORVASTATIN 20 MG TAB GT SCH (09:00)
[2018-04-26] MEDS: CALCITRIOL 0.25 MCG CAPLF PO SCH (09:00)
[2018-04-26] MEDS: AMIKACIN 500 MG in DEXTROSE 5% 100 ML IV SCH (09:56)
[2018-04-26] MEDS: SKINTEGRITY HYDROGEL TP SCH (13:00)
[2018-04-26] MEDS: THERAHONEY GEL 42.5 GM TP SCH (13:00)
[2018-04-26] MEDS: ALGINATE ROPE TP SCH (13:00)
[2018-04-26] MEDS: DEXT 5% / NACL 0.2% 1,000 ML IV SCH (13:27)
[2018-04-26] MEDS ORDERED: MORPHINE SULFATE 50 MG in NACL 0.9% 45 ML IV PRN (14:05)
[2018-04-26] MEDS: MORPHINE SULFATE 100 MG in NACL 0.9% 90 ML IV PRN (18:18)
[2018-04-27] VITALS: BP 62/31
[2018-04-27] MEDS: HYDRAGUARD CREAM TP SCH ×2 (01:00→13:00)
[2018-04-27] MEDS: Z-GUARD PASTE TP SCH ×2 (01:00→13:00)
[2018-04-27] MEDS: MORPHINE SULFATE 100 MG in NACL 0.9% 90 ML IV PRN ×2 (02:52→11:25)
[2018-04-27 04:00] VITALS: BP 76/32
[2018-04-27] MEDS: VALPROIC ACID 250 MG/5 ML UDC GT SCH ×2 (04:01→13:00)
[2018-04-27] MEDS: levETIRAcetam 100 MG/ML ORASYR GT SCH ×2 (04:02→13:00)
[2018-04-27 08:00] VITALS: BP 76/35
[2018-04-27] MEDS: LACTOBACILLUS RHAMNOSUS GG 1 EACH CAP GT SCH (09:00)
[2018-04-27] MEDS: ZINC SULF 220 MG CAP GT SCH (09:00)
[2018-04-27] MEDS: CALCITRIOL 0.25 MCG CAPLF PO SCH (09:00)
[2018-04-27 12:00] VITALS: BP 89/53
[2018-04-27] MEDS: SKINTEGRITY HYDROGEL TP SCH (13:00)
[2018-04-27] MEDS: ALGINATE ROPE TP SCH (13:00)
[2018-04-27] MEDS: THERAHONEY GEL 42.5 GM TP SCH (13:00)
[2018-04-27] MEDS: DEXT 5% / NACL 0.2% 1,000 ML IV SCH (13:27)
[2018-04-27 16:00] VITALS: BP 61/34
[2018-04-27 20:00] VITALS: BP 59/30
== END 2018-04-27 20:14 | disposition expired | DRG 720 ==
LOC: MED 13:18 → MIC 16:37 → MTU 04-22 03:52
PROVIDERS: ADMIT Hospitalist; ATTEND Hospitalist
PROC: 30233N1 Transfusion of Nonautologous Red Blood Cells into Peripheral Vein, Percutaneous Approach (ICD-10-PCS; principal; 2018-04-15)
PROC: 5A1955Z Respiratory Ventilation, Greater than 96 Consecutive Hours (ICD-10-PCS; 2018-04-15)
PROC: 0DJ08ZZ Inspection of Upper Intestinal Tract, Via Natural or Artificial Opening Endoscopic (ICD-10-PCS; 2018-04-18)
DX: A41.9 Sepsis, unspecified organism (principal); G93.49 Other encephalopathy; Z99.11 Dependence on respirator [ventilator] status; J15.1 Pneumonia due to Pseudomonas; E46 Unspecified protein-calorie malnutrition; J96.10 Chronic respiratory failure, unspecified whether with hypoxia or hypercapnia; L89.154 Pressure ulcer of sacral region, stage 4; R65.20 Severe sepsis without septic shock; R53.2 Functional quadriplegia; E11.22 Type 2 diabetes mellitus with diabetic chronic kidney disease; Z66 Do not resuscitate; E83.42 Hypomagnesemia; R13.10 Dysphagia, unspecified; E11.51 Type 2 diabetes mellitus with diabetic peripheral angiopathy without gangrene; E87.0 Hyperosmolality and hypernatremia; D64.9 Anemia, unspecified; E87.6 Hypokalemia; G40.909 Epilepsy, unspecified, not intractable, without status epilepticus; N39.0 Urinary tract infection, site not specified; E78.5 Hyperlipidemia, unspecified; E86.9 Volume depletion, unspecified; F03.90 Unspecified dementia, unspecified severity, without behavioral disturbance, psychotic disturbance, mood disturbance, and anxiety; I12.9 Hypertensive chronic kidney disease with stage 1 through stage 4 chronic kidney disease, or unspecified chronic kidney disease; J96.11 Chronic respiratory failure with hypoxia; N18.9 Chronic kidney disease, unspecified; Z51.5 Encounter for palliative care; Z79.4 Long term (current) use of insulin; Z86.73 Personal history of transient ischemic attack (TIA), and cerebral infarction without residual deficits; Z89.512 Acquired absence of left leg below knee; Z93.0 Tracheostomy status; Z93.1 Gastrostomy status; Z79.899 Other long term (current) drug therapy; Z68.41 Body mass index [BMI] 40.0-44.9, adult
CPT/HCPCS: 36415; 71045; 76770; 80048; 80053; 80150; 81001; 82272; 82550; 82948; 83540; 83735; 83880; 84100; 84484; 85025; 85045; 85610; 85730; 86886; 86900; 86901; 86920; 87070; 87081; 87086; 87186; 87205; 93005; 94003; 94640; 96360; 96361; 99285; A4330; A4649; A6248; C9113; J0278; J0696; J1200; J1815; J1940; J2060; J2250; J2270; J2543; J2765; J2916; J2997; J3010; J3430; J3475; J3480; J7030; J7060; J7620; P9016; P9046; Q0092